=== PATIENT | male | born 1995 | race Caucasian/White ===

== ENCOUNTER 2023-01-26 19:18 | Inpatient (IN) | payer OTHER, SELFPAY ==
--- NOTE | ~2023-01-26 | CT_ITS ---
EXAMINATION: CT LE LT w con DATE: 01/30/2023 15:16 INDICATION: Left high ankle abscess TECHNIQUE: High resolution computed tomography (CT) of the left ankle was performed with 100 mL Omnip aque-350 intravenous contrast. Additional sagittal and coronal reconstructions were performed. Automa cb exposure control and iterative reconstruction technique were employed. The dose-length product wa s 459.10 mGy-cm. COMPARISON: None FINDINGS: There is diffuse soft tissue swelling with subcutaneous edema about the visualized lower calf, ankle and extending into the foot with dorsal predominance. There is skin thickening and more focal soft ti ssue swelling consistent with cellulitis associated with an approximately 11 x 7 x 14 mm region of re latively low density within the subcutaneous fat medial to the metaphyseal regions of the distal tibi a likely represents a phlegmonous change with no organized peripherally enhancing wall. There appears to be a 1 mm diameter low density likely draining sinus tract extending to the skin surface. No absc esses identified. No soft tissue gas or evident foreign bodies. Bones are normal alignment with no fr acture. No cortical erosions or periosteal reaction to suggest ostomy myelitis. Visualized joint spac es are normal with no joint effusions. Vessel wall calcification along the posterior tibial artery. IMPRESSION: 1. 11 x 7 x 14 mm region of likely phlegmonous change with what appears be a tiny draining sinus trac t extending to the skin surface and surrounding cellulitis located medial to the distal metaphyseal r egion of the left tibia. No organized abscess or osteomyelitis. Reviewed, dictated and finalized at location A. IMPRESSION: 1. 11 x 7 x 14 mm region of likely phlegmonous change with what appears be a ti ny draining sinus tract extending to the skin surface and surrounding celluliti s located medial to the distal metaphyseal region of the left tibia. No organiz ed abscess or osteomyelitis.
--- NOTE | ~2023-01-26 | US_ITS ---
EXAMINATION: US venous doppler [facility] DATE: 01/27/2023 09:41 INDICATION: Left lower limb swelling. TECHNIQUE: Grayscale ultrasound images without and with compression and Doppler ultrasound images of the left lower extremity veins were obtained. COMPARISON: None. FINDINGS: The visualized portions of left common femoral vein, profunda (deep) femoral vein, femoral vein, popl iteal vein, peroneal veins, posterior tibial veins, and greater saphenous vein outflow are patent. IMPRESSION: 1. No deep venous thrombosis. Reviewed, dictated and finalized at location A.
[2023-01-26 19:22] VITALS: BP 104/65; PULSE 108; RESP 17; TEMP 38.2; O2SAT 100
[2023-01-26 21:30] VITALS: BP 121/75; PULSE 99; RESP 16; TEMP 37.1; O2SAT 100
[2023-01-26 23:47] VITALS: BP 149/90; PULSE 96; RESP 16; O2SAT 100
--- NOTE | 2023-01-27 01:05 | ED.SKABFB ---
HPI - Skin/Abscess/Foreign Bdy General Chief complaint: Skin/Abscess/Foreign Body Stated complaint: infection on left leg Time Seen by Provider: 01/27/23 00:26 Source: patient Mode of arrival: ambulatory Limitations: no limitations History of Present Illness HPI narrative: Patient is a 27 y/o male who presents to the ED with c/o infection to his left lower leg. Patient reports he wore a different pair of high top shoes to work last week and noticed an area to his left medial lower leg just above his ankle that was rubbed raw. He developed a small ulcer-like wound in this region. He states over the last 2 to 3 days he has noticed increased pain and redness in the area surrounding the wound. He states today he noticed the redness spreading up his leg and purulent discharge from the wound. Patient has not tried anything for his symptoms. He has been ambulatory. He was febrile upon arrival to the ED here, but denies feeling feverish at home. Denies numbness or tingling. Denies nausea or vomiting. Patient states he has never been officially diagnosed with diabetes, but was told he was unable to join the [employer] after high school due to his blood sugar being elevated. He never followed up with the doctor after this. Related Data Allergies Allergy/AdvReac Type Severity Reaction Status Date / Time No Known Allergies Allergy Verified 01/26/23 23:47 Review of Systems Review of Systems: CONSTITUTIONAL: See HPI. CARDIOVASCULAR: Denies chest pain. RESPIRATORY: Denies dyspnea. GASTROINTESTINAL: Denies abdominal pain, nausea, vomiting. SKIN: See HPI. MUSCULOSKELETAL: See HPI. NEUROLOGIC: Denies tingling, numbness, or weakness. All systems reviewed & are unremarkable except as noted in HPI and below Exam Narrative: GENERAL: Mildly disheveled appearing, thin, non-toxic, in no acute distress. HEAD: Normocephalic, atraumatic. ENT: Poor dentition, partially edentulous. NECK: Supple. No adenopathy, no masses. RESPIRATORY: Airway patent, respirations nonlabored. Clear to auscultation bilaterally, no rales, rhonchi, wheezing. CARDIOVASCULAR: Regular rate and rhythm without murmurs, rubs, or gallops. Difficult to palpate DP pulses on left due to swelling, able to Doppler pulse. MUSCULOSKELETAL: Moves all extremities. Strength/ROM intact. Diffuse pitting edema noted to left lower leg extending into ankle and foot. Diffuse tenderness throughout left medial lower leg. Large area of erythema and warmth over medial left lower leg with central quarter-sized ulcer a few fingerbreadths proximal from medial malleoli, moist wound edges, draining purulent material. Crusting present. SKIN: Warm, dry, normal color. No rashes. Scattered healing scabs to right lower warren. NEURO: A&O X3. Speech clear. Cranial nerves II-XII grossly intact. Steady gait. No ataxic movements. PSYCHIATRIC: Appropriate mood and affect. Normal interaction. Course Vital Signs Vital signs: Vital Signs Temperature 100.7 F H 01/26/23 19:22 Pulse Rate 108 H 01/26/23 19:22 Respiratory Rate 17 01/26/23 19:22 Blood Pressure 104/65 01/26/23 19:22 Pulse Oximetry 100 01/26/23 19:22 Oxygen Delivery Room Air 01/26/23 19:22 Temperature 98.8 F 01/26/23 21:30 Pulse Rate 88 01/27/23 02:02 Respiratory Rate 16 01/27/23 02:02 Blood Pressure 135/95 H 01/27/23 02:02 Pulse Oximetry 100 01/27/23 02:02 Oxygen Delivery Room Air 01/26/23 19:22 MDM - Skin/Abscess/Foreign Bdy MDM Narrative Medical decision making narrative: Patient presented to ED with wound and infection to left lower leg. Potential for undiagnosed diabetes. Patient tachycardic and febrile upon arrival to the ED, both of which were resolved by the time of my evaluation. Exam consistent with diffuse cellulitis of left lower leg with infected ulcer to medial lower leg, just proximal to medial malleoli. Purulent material coming from wound/ulcer. Wound and blood cultures obtained. CB
[2023-01-27 01:50] LABS: Basophils Percent Auto 0.3 % (0.2-1.2); Eosinophils Percent Auto 0.4 % (0-4.4); Hematocrit 34.6 % (42.0-52.0); Hemoglobin 12.1 g/dL (14.0-18.0); Immature Granulocyte Absolute 0.04 K/mm3 (0.00-0.031); Immature Granulocyte Percent A 0.4 % (0-0.5); Lymphocytes Absolute Auto 2.44 K/mm3 (0.9-3.2); Lymphocytes Percent Auto 25.8 % (18.3-44.2); Mean Corpuscular Volume 85.6 fl (80-100); Mean Platelet Volume 9.8 fl (7.4-10.4); Monocytes Absolute Auto 0.7 K/mm3 (0.1-0.6); Monocytes Percent Auto 7.5 % (2.6-8.5); Neutrophils Absolute Auto 6.2 K/mm3 (1.3-6.7); Neutrophils Percent Auto 65.6 % (45.5-73.1); Platelet Count Result 237 k/mm3 (150-375); Red Blood Count 4.04 M/mm3 (4.6-6.20); Red Cell Distribution Width 12.5 % (11.5-14.5); White Blood Count 9.5 K/mm3 (4.5-10.0)
[2023-01-27 02:01] LABS: Lactic Acid Reflex 1.3 mmol/L (0.7-2.0)
[2023-01-27 02:02] VITALS: BP 135/95; PULSE 88; RESP 16; O2SAT 100
[2023-01-27 02:19] LABS: Alanine Aminotransferase 24 U/L (6-50); Alkaline Phosphatase 294 U/L (38-126); Anion Gap 12 mmol/L (8-16); Aspartate Amino Transferase 20 U/L (17-59); Blood Urea Nitrogen 9 mg/dL (9-20); Calcium 8.6 mg/dL (8.4-10.2); Carbon Dioxide 22 mmol/L (22-30); Chloride 93 mmol/L (98-107); Estimated CRCL calculation 100 ml/min; Estimated Glomerular Filt Rate > 60; Glucose 353 mg/dL (65-110); Potassium 3.6 mmol/L (3.4-5.0); Sodium 127 mmol/L (137-145)
[2023-01-27 02:20] LABS: Erythrocyte Sedimentation Rate 107 mm/hr (0-20)
[2023-01-27] MEDS: CEFEPIME 2 GM/NS 50 ML 2 GM/50 ML BAG IVPB ×2 (02:34→14:10)
[2023-01-27] MEDS: SODIUM CHLORIDE 0.9% IV 1,000 ML 999 ML IV CONT ×2 (02:34→03:48)
[2023-01-27 02:50] LABS: Hemoglobin A1C 11.2 % (<5.7)
--- NOTE | 2023-01-27 03:04 | PC.NURSE ---
called DR. Powers at [phone] she returned the call at [phone]
[2023-01-27] MEDS: metroNIDAZOLE 500 MG/ISO 100ML 500 MG/100 ML BAG 100 MG IVPB ×3 (03:21→18:34)
[2023-01-27 03:25] VITALS: BP 151/93; PULSE 97; RESP 16; O2SAT 100
[2023-01-27] MEDS: SODIUM CHLORIDE 0.9% IV 1,000 ML 100 ML IV CONT (04:40)
[2023-01-27 04:45] VITALS: BMI 21.6
--- NOTE | 2023-01-27 04:50 | ADMGEN ---
This patient, Catracho Deras, was admitted to 3 [facility] Surg Room 320-01 at 0430. Patient/family oriented to hospital policies and general routines including ID bracelet, bed and alarms, visiting hours, pain management, procedures, bathroom and other care routines, personal items, smoking policy, room service/diet, and visiting hours. Information on how to activate the Rapid Response Team has been discussed. Patient/Family are encouraged to report perceived risks to care and to ask questions if they do not understand what they are told or what they should do.
[2023-01-27 05:07] LABS: Glucose Point of Care 306 mg/dl (65-105)
[2023-01-27] MEDS: INSULIN ASPART (*BKC) 100 UNITS/ML SUB-Q ×3 (05:47→22:23)
[2023-01-27 06:00] VITALS: BP 128/84; PULSE 98; RESP 18; TEMP 35.9; O2SAT 100
[2023-01-27 08:09] LABS: Glucose Point of Care 218 mg/dl (65-105)
[2023-01-27] MEDS: metFORMIN HCL 500 MG TABLET PO ×2 (08:38→17:00)
--- NOTE | 2023-01-27 10:06 | PM.IMHP ---
H&P: HPI History of Present Illness Date/Time: 01/27/23 10:06 Chief Complaint: Wound on left lower leg Narrative: 27-year-old male with history of diabetes is presenting with wound to his left lower leg after wearing different shoes last week. At first it was a blister and then it appears to have ulcerated and now looks infected. It has gotten progressively worse over the last 2-3 days. He is complaining of pain and drainage from the area surrounding the wound. He denies any chest pain or shortness of breath. No fevers or chills. No nausea, vomiting or diarrhea. In the ER, he was started on IV antibiotics and admitted for closer observation. Review of Systems Review of Systems: 12 point review of systems was assessed and was negative except as noted in the HPI [facility] Past Medical History Medical History (Updated 01/27/23 @ 19:13 by Suad Chappell DO) Hyperglycemia Social History Social History Smoking status: Current every day smoker Tobacco type: e-cigarettes/vaping Alcohol intake: current Drinks per week: 2 Substance use: current Substance use type: marijuana Last use: 01/23/23 Lack of Transportation: YES Lack of Food: Often True Current Housing: I Have Housing Concerned About Future Housing: No Difficulty Paying Gas/Electric Bills: YES Difficulty Paying for Meds: No Currently Unemployed: No Education: High School Diploma/GED Difficulty w/ Childcare or Family Care: No Spiritual care concerns: No Meds Home Medications and Allergies Home Medications Medication Instructions Recorded Confirmed Type ibuprofen 600 mg tablet 600 mg PO Q6H PRN Pain 01/27/23 01/27/23 History Allergies Allergy/AdvReac Type Severity Reaction Status Date / Time No Known Allergies Allergy Verified 01/26/23 23:47 Vital Signs Vital Signs - 24 hr 01/26/23 19:22 01/26/23 21:30 01/26/23 23:47 Temperature 100.7 F H 98.8 F Pulse Rate 108 H 99 96 Respiratory Rate 17 16 16 Blood Pressure 104/65 121/75 149/90 H Pulse Oximetry 100 100 100 Oxygen Delivery Room Air 01/27/23 02:02 01/27/23 03:25 01/27/23 05:54 Temperature Pulse Rate 88 97 Respiratory Rate 16 16 Blood Pressure 135/95 H 151/93 H Pulse Oximetry 100 100 Oxygen Delivery Room Air 01/27/23 06:00 Temperature 96.6 F L Pulse Rate 98 Respiratory Rate 18 Blood Pressure 128/84 Pulse Oximetry 100 Oxygen Delivery Exam Narrative: General: No acute distress, alert and oriented per baseline HEENT: Atraumatic, normocephalic, mucous membranes moist CV: Regular rate and rhythm, S1, S2 Lungs: Clear to auscultation bilaterally, no rales or crackles noted, no wheezes, good air entry Abdomen: Soft, nontender, nondistended Extremities: Normal to inspection, 2+ pitting edema noted to left lower leg, TTP left lower leg, large area of erythema and warmth over medial left lower leg with central quarter-sized ulcer a few inches proximal from medial malleoli, moist wound edges, draining purulent material. Crusting present. Skin: No rashes noted, no lesions or wounds seen Psych: Euthymic, normal affect H&P: Results Labs Labs: Short CBC 01/27/23 Range/Units 01:38 WBC 9.5 (4.5-10.0) K/mm3 Hgb 12.1 L (14.0-18.0) g/dL Hct 34.6 L (42.0-52.0) % Plt Count 237 (150-375) k/mm3 BMP 01/27/23 01:38 Sodium 127 L Potassium 3.6 Chloride 93 L Carbon Dioxide 22 BUN 9 Creatinine 0.80 Glucose 353 H Calcium 8.6 Liver Function 01/27/23 Range/Units 01:38 Total Bilirubin 1.0 (0.2-1.3) mg/dL AST 20 (17-59) U/L ALT 24 (6-50) U/L Alkaline Phosphatase 294 H (38-126) U/L Albumin 4.0 (3.5-5.1) g/dL Assessment and Plan Assessment and plan (1) Cellulitis of left lower extremity: Code(s): L03.116 - Cellulitis of left lower limb Status: Acute Assessment and Plan: IV abx,
[2023-01-27 11:59] LABS: Glucose Point of Care 242 mg/dl (65-105)
[2023-01-27 14:00] VITALS: BP 125/70; PULSE 89; RESP 18; TEMP 37.2; O2SAT 99
[2023-01-27] MEDS: MUPIROCIN 2% OINT 22 GM TUBE 1 APPLIC TOPICAL (14:11)
[2023-01-27 16:44] LABS: Glucose Point of Care 186 mg/dl (65-105)
[2023-01-27] MEDS: VANCOMYCIN 1,000 MG/NS 250 ML 1,000 MG/250 ML BAG 250 MG IVPB (17:00)
[2023-01-27 21:15] LABS: Erythrocyte Sedimentation Rate > 140 mm/hr (0-20)
[2023-01-27 21:19] LABS: CRP 2.3 mg/dL (<1.0)
[2023-01-27 21:24] LABS: Glucose Point of Care 242 mg/dl (65-105)
[2023-01-27 21:33] LABS: Procalcitonin 0.2 ng/mL
[2023-01-27 22:00] VITALS: BP 120/66; PULSE 94; RESP 16; TEMP 36.1; O2SAT 100
[2023-01-28] MEDS: SODIUM CHLORIDE 0.9% IV 1,000 ML 100 ML IV CONT ×2 (00:47→11:45)
[2023-01-28] MEDS: CEFEPIME 2 GM/NS 50 ML 2 GM/50 ML BAG IVPB ×2 (02:14→14:11)
[2023-01-28] MEDS: metroNIDAZOLE 500 MG/ISO 100ML 500 MG/100 ML BAG 100 MG IVPB ×3 (02:52→17:12)
[2023-01-28] MEDS: VANCOMYCIN 1,000 MG/NS 250 ML 1,000 MG/250 ML BAG 250 MG IVPB (03:58)
[2023-01-28 06:00] VITALS: BP 130/76; PULSE 87; RESP 20; TEMP 36; O2SAT 99
[2023-01-28 06:49] LABS: Glucose Point of Care 148 mg/dl (65-105)
[2023-01-28 07:48] LABS: Estimated CRCL calculation 130 ml/min; Estimated Glomerular Filt Rate > 60
[2023-01-28 07:50] LABS: Glucose Point of Care 111 mg/dl (65-105)
[2023-01-28] MEDS: metFORMIN HCL 500 MG TABLET PO ×2 (08:30→17:11)
[2023-01-28] MEDS: MUPIROCIN 2% OINT 22 GM TUBE 1 APPLIC TOPICAL ×2 (08:31→16:49)
[2023-01-28 09:10] VITALS: BMI 21.6
[2023-01-28 11:33] LABS: Glucose Point of Care 172 mg/dl (65-105)
[2023-01-28 14:00] VITALS: BP 121/78; PULSE 82; RESP 20; TEMP 36.8; O2SAT 100
--- NOTE | 2023-01-28 14:10 | PM.IMPN ---
Progress Note: A&P Assessment and Plan (1) Cellulitis of left lower extremity: Code(s): L03.116 - Cellulitis of left lower limb Status: Acute Assessment and Plan: Patient presents with left leg edema, redness and warmth c/w cellulitis. [place] related to uncontrolled DM. BCx collected and he was started on vancomycin, cefepime and Flagyl 01/27. BCx NGTD Left LE venous doppler negative for DVT. WBC normal. ESR>140. CRP 2.3. Continue IV abx. Follow clinically. (2) Diabetes mellitus, new onset: Code(s): E11.9 - Type 2 diabetes mellitus without complications Status: Acute Assessment and Plan: A1c 11.2. The patient's blood glucose was reviewed on 01/28 Glucose remains elevated but better. Sodium low from the hyperglycemia but no metabolic acidosis. A young, thin male suggests DM Type I but no hx of DKA. Will check auto-Ab. Continue AccuCheks covering with sliding scale. Hypoglycemia protocol available as needed. Continue current medications. Add Empagliflozin Appreciate medical educator input. (3) Acute hyponatremia: Code(s): E87.1 - Hypo-osmolality and hyponatremia Status: Acute Assessment and Plan: Related to the hyperglycemia. Repeat labs tomorrow. Plan DVT prophylaxis with Lovenox GI prophylaxis not indicated Code status full code Subjective Date/time seen: 01/28/23 14:10 Interval history: 27yo male with known hx of hyperglycemia here for left leg edema and redness consistent with cellulitis. Assuming care. Chart reviewed. Patient states that he was noted to have elevated glucose when he was trying to get into the [employer]. He was told to follow up with Which he never did. He has numbness in his feet. He has never been hospitalized for hyperglycemia. He did know right eye vision changes few weeks ago that have slowly improved. He has not followed up with industrial relations officer for an eye exam. He denies any pain in the left leg. He has noted that the left leg with less swollen today. Exam Narrative: AF 96.8 130/76 87 20 99% ra Gen - NARD Chest - CTA bilaterally, nml RR CV - RRR S1/S2 Abd - Soft, NT/ND, Positive BS Ext -left lower extremity edema. Erythema noted in the left lower warren and calf. Nickel sized denuded ulcerated area left medial calf. Neuro -numbness bilateral lower extremities. Psych - Nml mood and affect Skin - Warm and dry Objective Data Vital Signs Vital Signs: Vital Signs - 24 hr 01/27/23 22:00 01/28/23 06:00 01/28/23 08:00 Temperature 96.9 F L 96.8 F L Pulse Rate 94 87 Respiratory Rate 16 20 Blood Pressure 120/66 130/76 Pulse Oximetry 100 99 Oxygen Delivery Room Air Intake/Output Intake/Output: Intake & Output 01/25/23 01/26/23 01/27/23 01/28/23 23:59 23:59 23:59 23:59 Intake Total 4672 2021 Balance 4672 2021 Meds/Results Medications: Active Medications Generic Name Dose Route Start Last Admin Trade Name Freq PRN Reason Stop Dose Admin Acetaminophen 650 mg 01/27/23 03:08 Acetaminophen 325 Mg Tablet PO Q4H PRN Mild Pain (1-3) or Fever Dextrose 12.5 gm 01/27/23 03:13 Dextrose 50% 25 Gm/50 Ml Syringe IV PUSH PRN PRN Hypoglycemia Protocol Glucagon 1 mg 01/27/23 03:13 Glucagon For Inj 1 Mg Vial IM PRN PRN Hypoglycemia Protocol Glucose 15 gm 01/27/23 03:13 Glucose Oral Gel 15 Gm Of Glucse In 37.5 Gm Tube PO PRN PRN Hypoglycemia Protocol Cefepime HCl 2 gm in 50 mls @ 100 mls/hr 01/27/23 14:00 01/28/23 02:44 Maxipime 2 Gm/Ns 50 Ml IVPB Infused Q12H LIZET Infusion Metronidazole 500 mg in 100 mls @ 100 mls/hr 01/27/23 11:00 01/28/23 12:47 Flagyl 500 Mg/Iso Soln 100 Ml IVPB Infused Q8H LIZET Infusion Sodium Chloride 1,000 mls @ 100 mls/hr 01/27/23 03:10 01/28/23 11:45 Normal Saline Iv IV CONT 100 mls/hr .Q10H LIZET Administration Dextrose 1,000 mls @ 100 mls/hr 09
[2023-01-28 16:05] LABS: Vancomycin Trough 6.7 ug/mL (10.0-20.0)
[2023-01-28 16:34] LABS: Glucose Point of Care 179 mg/dl (65-105)
[2023-01-28] MEDS: ENOXAPARIN 40 MG/0.4 ML SYRINGE SUB-Q (18:19)
[2023-01-28 20:00] VITALS: PULSE 82; O2SAT 100
[2023-01-28 21:12] LABS: Glucose Point of Care 289 mg/dl (65-105)
[2023-01-28] MEDS: INSULIN ASPART (*BKC) 100 UNITS/ML SUB-Q (21:53)
[2023-01-28 22:00] VITALS: BP 127/84; PULSE 87; RESP 20; TEMP 36; O2SAT 99
[2023-01-29] MEDS: CEFEPIME 2 GM/NS 50 ML 2 GM/50 ML BAG IVPB ×2 (01:13→14:17)
[2023-01-29] MEDS: metroNIDAZOLE 500 MG/ISO 100ML 500 MG/100 ML BAG 100 MG IVPB ×2 (02:40→11:52)
--- NOTE | 2023-01-29 05:42 | PC.NURSE ---
pt independent with adl's
[2023-01-29 06:00] VITALS: BP 123/79; PULSE 76; RESP 16; TEMP 35.5; O2SAT 100
[2023-01-29 06:10] LABS: Basophils Percent Auto 0.4 % (0.2-1.2); Eosinophils Absolute Auto 0.1 K/mm3 (0-0.3); Hematocrit 31.1 % (42.0-52.0); Hemoglobin 10.7 g/dL (14.0-18.0); Immature Granulocyte Absolute 0.01 K/mm3 (0.00-0.031); Immature Granulocyte Percent A 0.2 % (0-0.5); Lymphocytes Absolute Auto 1.99 K/mm3 (0.9-3.2); Lymphocytes Percent Auto 36.2 % (18.3-44.2); Mean Corpuscular HGB Conc 34.4 g/dl (32-36); Mean Corpuscular Hemoglobin 29.8 pg (26-34); Mean Corpuscular Volume 86.6 fl (80-100); Mean Platelet Volume 9.4 fl (7.4-10.4); Monocytes Absolute Auto 0.3 K/mm3 (0.1-0.6); Neutrophils Percent Auto 55.2 % (45.5-73.1); Platelet Count Result 269 k/mm3 (150-375); Red Blood Count 3.59 M/mm3 (4.6-6.20); Red Cell Distribution Width 12.4 % (11.5-14.5); White Blood Count 5.5 K/mm3 (4.5-10.0)
[2023-01-29 06:28] LABS: Alanine Aminotransferase 17 U/L (6-50); Albumin Level 2.6 g/dL (3.5-5.1); Alkaline Phosphatase 198 U/L (38-126); Anion Gap 2 mmol/L (8-16); Aspartate Amino Transferase 19 U/L (17-59); Bilirubin,Total 0.3 mg/dL (0.2-1.3); Blood Urea Nitrogen 10 mg/dL (9-20); CRP 1.2 mg/dL (<1.0); Calcium 7.8 mg/dL (8.4-10.2); Carbon Dioxide 27 mmol/L (22-30); Chloride 104 mmol/L (98-107); Estimated CRCL calculation 130 ml/min; Estimated Glomerular Filt Rate > 60; Glucose 207 mg/dL (65-110); Magnesium 1.7 mg/dL (1.6-2.3); Potassium 3.6 mmol/L (3.4-5.0); Sodium 133 mmol/L (137-145)
[2023-01-29 07:28] LABS: Folic Acid 6.9 ng/mL (2.76->20)
[2023-01-29 07:45] LABS: Glucose Point of Care 214 mg/dl (65-105)
[2023-01-29] MEDS: ENOXAPARIN 40 MG/0.4 ML SYRINGE SUB-Q (08:25)
[2023-01-29] MEDS: EMPAGLIFLOZIN 10 MG TABLET PO (08:25)
[2023-01-29] MEDS: metFORMIN HCL 500 MG TABLET PO (08:25)
[2023-01-29] MEDS: INSULIN ASPART (*BKC) 100 UNITS/ML SUB-Q (08:26)
[2023-01-29] MEDS: MUPIROCIN 2% OINT 22 GM TUBE 1 APPLIC TOPICAL ×2 (08:31→18:07)
[2023-01-29 11:28] LABS: Glucose Point of Care 160 mg/dl (65-105)
[2023-01-29 14:00] VITALS: BP 124/81; PULSE 85; RESP 14; TEMP 36.5; O2SAT 100
--- NOTE | 2023-01-29 14:50 | PM.IMPN ---
Progress Note: A&P Assessment and Plan (1) Cellulitis of left lower extremity: Code(s): L03.116 - Cellulitis of left lower limb Status: Acute Assessment and Plan: Patient presents with left leg edema, redness and warmth c/w cellulitis. [place] related to uncontrolled DM. BCx collected and he was started on vancomycin, cefepime and Flagyl 01/27. BCx NGTD WCx MSSA Left LE venous doppler negative for DVT. WBC normal. ESR>140. CRP 2.3. Wound still draining purulent mat'l. Continue IV abx but narrow to Cefazolin. Follow clinically. (2) Diabetes mellitus, new onset: Code(s): E11.9 - Type 2 diabetes mellitus without complications Status: Acute Assessment and Plan: A1c 11.2. The patient's blood glucose was reviewed on 01/29 A young, thin male suggests DM Type I but no hx of DKA. He had hyperglycemia about 10 years ago but unclear if that was transient and he is now presenting with DM. He does have LE numbness to suggest long standing uncontrolled DM. Antibody testing ordered but feel Type I less likely. Glucose remains elevated but better. Sodium low from the hyperglycemia but no metabolic acidosis. Empagliflozin added since felt less likely Type I but will hold since still in differential Continue AccuCheks covering with sliding scale. Hypoglycemia protocol available as needed. Continue metformin Add Lantus given an A1c 11.2. Appreciate certified lactation educator input. (3) Acute hyponatremia: Code(s): E87.1 - Hypo-osmolality and hyponatremia Status: Acute Assessment and Plan: Na 127 on admission. Related to the hyperglycemia. Repeat sodium 133 Follow Plan DVT prophylaxis with Lovenox GI prophylaxis not indicated Code status full code Subjective Date/time seen: 01/29/23 14:50 Interval history: 27yo male with known hx of hyperglycemia here for left leg edema and redness consistent with cellulitis. No problems overngiht. Feels well. Leg less swollen Exam Narrative: AF 97.7 124/81 85 14 100% ra Gen - NARD Chest - CTA bilaterally, nml RR CV - RRR S1/S2 Abd - Soft, NT/ND, Positive BS Ext -left lower extremity edema decreased. Fading erythema noted in the left lower warren and calf. Small ulcer draining purulent material left medial calf. Psych - Nml mood and affect Skin - Warm and dry Objective Data Vital Signs Vital Signs: Vital Signs - 24 hr 01/28/23 20:00 01/28/23 22:00 01/29/23 06:00 Temperature 96.8 F L 96 F L Pulse Rate 82 87 76 Respiratory Rate 20 16 Blood Pressure 127/84 123/79 Pulse Oximetry 100 99 100 Oxygen Delivery Room Air 01/29/23 08:00 01/29/23 14:00 Temperature 97.7 F Pulse Rate 85 Respiratory Rate 14 Blood Pressure 124/81 Pulse Oximetry 100 Oxygen Delivery Room Air Intake/Output Intake/Output: Intake & Output 01/26/23 01/27/23 01/28/23 01/29/23 23:59 23:59 23:59 23:59 Intake Total 4677 3916 1242 Balance 4672 3916 1242 Meds/Results Medications: Active Medications Generic Name Dose Route Start Last Admin Trade Name Freq PRN Reason Stop Dose Admin Acetaminophen 650 mg 01/27/23 03:08 Acetaminophen 325 Mg Tablet PO Q4H PRN Mild Pain (1-3) or Fever Dextrose 12.5 gm 01/27/23 03:13 Dextrose 50% 25 Gm/50 Ml Syringe IV PUSH PRN PRN Hypoglycemia Protocol Enoxaparin Sodium 40 mg 01/29/23 09:00 01/29/23 08:25 Enoxaparin 40 Mg/0.4 Ml Syringe SUB-Q 40 mg DAILY LIZET Administration Glucagon 1 mg 01/27/23 03:13 Glucagon For Inj 1 Mg Vial IM PRN PRN Hypoglycemia Protocol Glucose 15 gm 01/27/23 03:13 Glucose Oral Gel 15 Gm Of Glucse In 37.5 Gm Tube PO PRN PRN Hypoglycemia Protocol Cefepime HCl 2 gm in 50 mls @ 100 mls/hr 01/27/23 14:00 01/29/23 14:17 Maxipime 2 Gm/Ns 50 Ml IVPB 100 mls/hr Q12H LIZET Administration Metronidazole 500 mg in 100 mls @ 100 mls/hr 01/27/23 11:00 01/29/23 11:52
[2023-01-29 16:28] LABS: Glucose Point of Care 124 mg/dl (65-105)
[2023-01-29 20:00] VITALS: O2SAT 100
[2023-01-29 20:51] VITALS: BP 162/95; PULSE 77; RESP 16; TEMP 35.9; O2SAT 100
--- NOTE | 2023-01-29 21:26 | ECG_ITS ---
Measurements Intervals [place] Rate: 62 P: 74 HI: 135 QRS: 86 QRSD: 98 T: 67 QT: 404 QTc: 411 Interpretive Statements SINUS RHYTHM WITH MARKED SINUS ARRHYTHMIA DELAYED PRECORDIAL R/S TRANSITION NONSPECIFIC ST ELEVATION IN ANTERIOR LEADS BASELINE ARTIFACT- V2 BORDERLINE ECG NO PREVIOUS ECG AVAILABLE FOR COMPARISON Electronically Signed On 01-30-2023 6:20:42 CDT by Km Briggs D.O.
[2023-01-29 21:29] LABS: Glucose Point of Care 153 mg/dl (65-105)
[2023-01-29] MEDS: INSULIN GLARGINE (*BKC) 100 UNITS/ML 8 UNITS SUB-Q (21:33)
[2023-01-29] MEDS: ONDANSETRON INJ 4 MG/2 ML VIAL IV PUSH (21:36)
[2023-01-29] MEDS: ceFAZolin 2 GM/D5W 50 ML 2 GM/50 ML BAG IVPB (21:37)
[2023-01-29 22:28] VITALS: BP 158/96; PULSE 75; RESP 18; TEMP 36; O2SAT 100
[2023-01-30] MEDS: ONDANSETRON INJ 4 MG/2 ML VIAL IV PUSH (03:40)
--- NOTE | 2023-01-30 03:45 | PC.NURSE ---
Spoke with Selena HORNER at this time r/t patient continuing to have N/V after zofran given. New orders received for phenergan 12.5 mg IVP x1.
[2023-01-30] MEDS: PROMETHAZINE HCL 25 MG/ML AMPUL 12.5 MG IV PUSH (04:01)
[2023-01-30 05:19] VITALS: BP 125/87; PULSE 83; RESP 18; TEMP 36.2; O2SAT 100
[2023-01-30] MEDS: ceFAZolin 2 GM/D5W 50 ML 2 GM/50 ML BAG IVPB ×2 (05:33→14:26)
[2023-01-30 07:36] LABS: Glucose Point of Care 106 mg/dl (65-105)
[2023-01-30 07:40] LABS: Basophils Percent Auto 0.4 % (0.2-1.2); Eosinophils Absolute Auto 0.1 K/mm3 (0-0.3); Eosinophils Percent Auto 1.2 % (0-4.4); Hemoglobin 10.9 g/dL (14.0-18.0); Immature Granulocyte Absolute 0.02 K/mm3 (0.00-0.031); Immature Granulocyte Percent A 0.4 % (0-0.5); Lymphocytes Absolute Auto 1.72 K/mm3 (0.9-3.2); Lymphocytes Percent Auto 34.5 % (18.3-44.2); Mean Corpuscular HGB Conc 34.1 g/dl (32-36); Mean Corpuscular Hemoglobin 29.5 pg (26-34); Mean Corpuscular Volume 86.7 fl (80-100); Mean Platelet Volume 9.2 fl (7.4-10.4); Monocytes Absolute Auto 0.3 K/mm3 (0.1-0.6); Monocytes Percent Auto 6.6 % (2.6-8.5); Neutrophils Absolute Auto 2.8 K/mm3 (1.3-6.7); Neutrophils Percent Auto 56.9 % (45.5-73.1); Platelet Count Result 314 k/mm3 (150-375); Red Blood Count 3.69 M/mm3 (4.6-6.20); Red Cell Distribution Width 12.6 % (11.5-14.5)
[2023-01-30 07:52] LABS: Alanine Aminotransferase 23 U/L (6-50); Albumin Level 2.7 g/dL (3.5-5.1); Alkaline Phosphatase 179 U/L (38-126); Anion Gap 2 mmol/L (8-16); Aspartate Amino Transferase 35 U/L (17-59); Bilirubin,Total 0.4 mg/dL (0.2-1.3); Blood Urea Nitrogen 10 mg/dL (9-20); CRP 0.7 mg/dL (<1.0); Calcium 7.9 mg/dL (8.4-10.2); Carbon Dioxide 30 mmol/L (22-30); Chloride 104 mmol/L (98-107); Estimated CRCL calculation 130 ml/min; Estimated Glomerular Filt Rate > 60; Glucose 113 mg/dL (65-110); Potassium 3.5 mmol/L (3.4-5.0); Sodium 136 mmol/L (137-145)
[2023-01-30] MEDS: MUPIROCIN 2% OINT 22 GM TUBE 1 APPLIC TOPICAL (09:39)
[2023-01-30] MEDS: ENOXAPARIN 40 MG/0.4 ML SYRINGE SUB-Q (09:39)
[2023-01-30 11:23] LABS: Glucose Point of Care 108 mg/dl (65-105)
[2023-01-30 14:00] VITALS: BP 131/85; PULSE 75; RESP 16; TEMP 36.3; O2SAT 100
[2023-01-30 16:26] LABS: Glucose Point of Care 121 mg/dl (65-105)
--- NOTE | 2023-01-30 16:33 | PM.IMPN ---
Progress Note: A&P Assessment and Plan (1) Cellulitis of left lower extremity: Code(s): L03.116 - Cellulitis of left lower limb Status: Acute Assessment and Plan: Patient presents with left leg edema, redness and warmth c/w cellulitis. [employer] related to uncontrolled DM. BCx collected and he was started on vancomycin, cefepime and Flagyl 01/27. BCx NGTD WCx MSSA Left LE venous doppler negative for DVT. WBC normal. ESR>140. CRP 2.3. Wound still draining purulent mat'l. Patietn without much sensation Continue IV abx as Cefazolin. CT Left LE ordered and showing 11 x 14mmregion of phlegmonous with tiny draining sinus tract and surrounding cellulitis. No cortical erosions or periosteal reactions. Follow clinically. (2) Diabetes mellitus, new onset: Code(s): E11.9 - Type 2 diabetes mellitus without complications Status: Acute Assessment and Plan: A1c 11.2. The patient's blood glucose was reviewed on 01/30 A young, thin male suggests DM Type I but no hx of DKA. He had hyperglycemia about 10 years ago but unclear if that was transient and he is now presenting with DM. He does have LE numbness to suggest long standing uncontrolled DM. Antibody testing ordered but feel Type I less likely. Sodium low from the hyperglycemia but no metabolic acidosis. Metformin stopped. Continue AccuCheks covering with sliding scale. Hypoglycemia protocol available as needed. Continue Lantus Appreciate printed circuit board panels developer input. (3) Acute hyponatremia: Code(s): E87.1 - Hypo-osmolality and hyponatremia Status: Acute Assessment and Plan: Na 127 on admission. Related to the hyperglycemia. Repeat sodium 136 Follow Plan DVT prophylaxis with Lovenox GI prophylaxis not indicated Code status full code Subjective Date/time seen: 01/30/23 16:33 Interval history: 27yo male with known hx of hyperglycemia here for left leg edema and redness consistent with cellulitis. EKG performed last night before ordering Zofran. Metformin was causing nausea so patient refusing. No other issues. Since stopping metformia, no further n/v. Eating well. Exam Narrative: AF 97.3 131/85 75 16 100% ra Gen - NARD Chest - CTA bilaterally, nml RR CV - RRR S1/S2 Abd - Soft, NT/ND, Positive BS Ext -left lower extremity edema continues to decrease. Fading erythema left LE. Small ulcer still draining purulent material left medial calf. Psych - Nml mood and affect Skin - Warm and dry Objective Data Vital Signs Vital Signs: Vital Signs - 24 hr 01/29/23 20:51 01/29/23 22:28 01/29/23 20:00 Temperature 96.7 F L 96.8 F L Pulse Rate 77 75 Respiratory Rate 16 18 Blood Pressure 162/95 H 158/96 H Pulse Oximetry 100 100 100 Oxygen Delivery Room Air 01/30/23 05:19 01/30/23 09:30 01/30/23 14:00 Temperature 97.1 F L 97.3 F L Pulse Rate 83 75 Respiratory Rate 18 16 Blood Pressure 125/87 131/85 Pulse Oximetry 100 100 Oxygen Delivery Room Air Intake/Output Intake/Output: Intake & Output 01/27/23 01/28/23 01/29/23 01/30/23 23:59 23:59 23:59 23:59 Intake Total 4672 3916 1664 1570 Balance 4672 3916 1664 1570 Meds/Results Medications: Active Medications Generic Name Dose Route Start Last Admin Trade Name Freq PRN Reason Stop Dose Admin Acetaminophen 650 mg 01/27/23 03:08 Acetaminophen 325 Mg Tablet PO Q4H PRN Mild Pain (1-3) or Fever Dextrose 12.5 gm 01/27/23 03:13 Dextrose 50% 25 Gm/50 Ml Syringe IV PUSH PRN PRN Hypoglycemia Protocol Enoxaparin Sodium 40 mg 01/29/23 09:00 01/30/23 09:39 Enoxaparin 40 Mg/0.4 Ml Syringe SUB-Q 40 mg DAILY LIZET Administration Glucagon 1 mg 01/27/23 03:13 Glucagon For Inj 1 Mg Vial IM PRN PRN Hypoglycemia Protocol Glucose 15 gm 01/27/23 03:13 Glucose Oral Gel 15 Gm Of Glucse In 37.5 Gm Tube PO PRN PRN Hypoglycemia Protocol Dextrose 1,000
--- NOTE | 2023-01-30 16:46 | PM.DS ---
DS: Admitting Diagnosis Discharge Date 01/30/23 Admitting Diagnosis Cellulitis DS: Discharge Diagnosis Discharge Diagnosis (1) Cellulitis of left lower extremity: Code(s): L03.116 - Cellulitis of left lower limb Status: Acute (2) Diabetes mellitus, new onset: Code(s): E11.9 - Type 2 diabetes mellitus without complications Status: Acute (3) Acute hyponatremia: Code(s): E87.1 - Hypo-osmolality and hyponatremia Status: Acute DS: Summary Hospital Course Reason for hospitalization: 27yo male with known hx of hyperglycemia here for left leg edema and redness consistent with cellulitis. Please see H&P for details. Hospital Course: Patient presents with left leg edema, redness and warmth c/w cellulitis. [place] related to uncontrolled DM. BCx collected and he was started on vancomycin, cefepime and Flagyl 01/27. BCx NGTD. He had a small open area and wound culture grew MSSA. Left LE venous doppler negative for DVT. WBC normal. ESR>140. CRP 2.3. Abx changed to Cefazolin. Wound continued to drain purulent mat'l. Patient without much sensation in the lower extremities. CT Left LE showing 11 x 14mm region of phlegmonous with tiny draining sinus tract and surrounding cellulitis. No cortical erosions or periosteal reactions. Patient states that he was told he had high glucose values about 10 years ago when trying to get into the [employer]. He never followed up about this. Here, he was noted to have a glucose of 353 but no metabolic acidosis. He is a young, thin male that suggests DM Type I but no hx of DKA. Unclear if the hyperglycemia 10 years ago was a transient phenomenon and now with new onset DM or if he has had elevated glucose for 10 years. He does have symptoms of peripheral neuropathy and was having right eye vision changes a few weeks ago to suggest long standing, poorly controlled DM. Hgb A1c 11.2. Antibody testing for DM Type I ordered.?Sodium was low from the hyperglycemia but normal when glucose better. Was on metformin but was causing nausea so metformin stopped. Lantus low dose added. Appreciate health promotion educator input. He overall did well and was able to be discharged home on 01/30/23. He was encouraged to establish care with a primary care provider. Also he will need to see a fitness centre manager and court collections officer. He was taught on how to give himself insulin and to check his glucose. Educated about the benefits of stopping all tobacco products. He was given a meter at [facility]. Status at Discharge Cognitive/behavioral status at discharge: stable Time Spent with Patient Time attestation: Total time spent providing and/or coordinating discharge services:35 minutes Exam Narrative: AF 97.3 131/85 75 16 100% ra Gen - NARD Chest - CTA bilaterally, nml RR CV - RRR S1/S2 Abd - Soft, NT/ND, Positive BS Ext -left lower extremity edema continues to decrease. Fading erythema left LE. Small ulcer still draining purulent material left medial calf. Psych - Nml mood and affect Skin - Warm and dry DS: Data Data Completed and Pending Labs on day of discharge: Labs from last 24 hours 01/30/23 01/30/23 01/30/23 16:23 11:21 07:33 WBC 5.0 RBC 3.69 L Hgb 10.9 L Hct 32.0 L MCV 86.7 MCH 29.5 MCHC 34.1 RDW 12.6 Plt Count 314 MPV 9.2 Immature Gran % (Auto) 0.4 Neut % (Auto) 56.9 Lymph % (Auto) 34.5 [place] % (Auto) 6.6 Eos % (Auto) 1.2 Baso % (Auto) 0.4 Lymph # (Auto) 1.72 [place] # (Auto) 0.3 Eos # (Auto) 0.1 Baso # (Auto) 0.0 Abs Immat Gran (auto) 0.02 Absolute Neuts (auto) 2.8 Absolute Nucleated RBC 0.0 Nucleated RBC % 0.0 Sodium 136 L Potassium 3.5 Chloride 104 Carbon Dioxide 30 Anion Gap 2 L BUN 10 Creatinine 0.60 L Estim Creat Clear Calc 130 Estimated GFR > 60 Glucose 113 H POC Capillary Glucose 121 H 108 H Calcium 7.9 L Total Bilirubin 0.4 AST 35 ALT
[2023-01-31 19:44] LABS: Glutamic acid decarboxylase AA <5 IU/mL (<5)
[2023-02-01 14:05] LABS: Insulin Level Total 2.6 uIU/mL (<=18.4)
--- NOTE | 2023-02-05 09:04 | PC.NURSE ---
C- peptide- WNL ar 1.50 ОЛЕГ WNL at <5 Insulin AB- WNL at <0.4 Insulin level- 2.6; <=18.4 Dr. Burnette aware.
[2023-02-05 18:17] LABS: Zinc Transporter 8 Antibody <10 U/mL (<15)
--- NOTE | 2023-02-09 13:06 | PC.NURSE ---
Zinc transport is WNL at <10. Dr. Burnette aware.
--- NOTE | 2023-02-11 10:08 | PC.NURSE ---
Spoke with patient regarding finding a PCP. Pt states he has several in mind, but has not made a decision at this time. Have let Dr. Burnette know.
== END 2023-01-30 17:38 | disposition home or self-care (01) | DRG 380 ==
LOC: ANHED 01-27 03:16 → ANH3MEDSUR 01-27 03:36
PROVIDERS: Student in an Organized Health Care Education/Training Program; Admitting Provider Internal Medicine; Emergency Provider Physician Assistant; Visit Provider Internal Medicine
DX: E11.628 Type 2 diabetes mellitus with other skin complications (principal); L97.829 Non-pressure chronic ulcer of other part of left lower leg with unspecified severity; E11.622 Type 2 diabetes mellitus with other skin ulcer; L03.116 Cellulitis of left lower limb; E87.1 Hypo-osmolality and hyponatremia; B95.61 Methicillin susceptible Staphylococcus aureus infection as the cause of diseases classified elsewhere; E11.65 Type 2 diabetes mellitus with hyperglycemia; E11.9 Type 2 diabetes mellitus without complications; F17.290 Nicotine dependence, other tobacco product, uncomplicated
CPT/HCPCS: 36415; 73701; 80053; 80202; 82565; 82607; 82746; 82948; 83036; 83525; 83605; 83735; 84145; 84443; 84681; 85025; 85652; 86140; 86337; 86341; 87040; 87070; 87147; 87181; 87186; 87205; 93005; 93971; 96365; 96366; 96367; 96372; 96375; 99285; A9270; G0378; J0690; J0692; J1650; J1815; J1836; J2405; J2550; J3370; J7030; Q9967

== ENCOUNTER 2024-07-29 10:09 | Emergency (ER) | payer BC, SELFPAY ==
[2024-07-29 10:27] VITALS: BP 177/108; PULSE 87; RESP 20; TEMP 36.6; O2SAT 100
[2024-07-29 10:35] LABS: Glucose Point of Care 332 mg/dl (65-105)
--- OUTSIDE RECORDS SUMMARY | 2024-07-29 11:01 | XMS_ITS | Clinical Summary ---
Author Organization [facility] [employer] Address [address] [place] [address] Care Team Providers Care Curriculum And Assessment Coordinator Name Role Phone Lindsay Abdi MD Primary Care Provider [phone] Source Comments [facility] [employer]non-owned Affiliates and Associated Physician Practices is amultiple site organization consisting of ambulatory clinics and hospital sitesin [place], [place], [place] and [place]. This disclosure is being madepursuant to the Care Everywhere program and may not contain all information available regarding this patient. Last updated 18.[facility] [employer] Allergies No known active allergies Medications * Be aware that medications may not be up to date on this document. Alwaysverify current medications with the patient. Medication Sig Dispensed Refills Start Date End Date Status moxifloxacin (Vigamox) 0.5 % ophthalmic solution Instill 1 (one) drop into right eye 4 times daily 03/17/2024 Active dorzolamide-timol ol (Cosopt) 2-0.5 % ophthalmic solution Instill 1 (one) drop into both eyes 3 times daily 15 mL 4 05/12/2024 Active brimonidine (Alphagan) 0.2 % ophthalmic solution Instill 1 (one) drop into right eye 3 times daily 15 mL 4 05/12/2024 Active latanoprost (Xalatan) 0.005 % ophthalmic solution Instill 1 (one) drop into right eye at bedtime 2.5 mL 4 05/12/2024 Active prednisoLONE acetate (Pred Forte) 1 % ophthalmic suspension 04/18/2024 Active Continuous Glucose Sensor (Dexcom G7 Sensor) MISCIndications:P oor control type I diabetes mellitus (HCC) Use 1 Each every 10 days 3 Each 11 05/23/2024 Active Lantus SoloStar pen Inject 8 (eight) Units subcutaneously at bedtime 15 mL 3 05/23/2024 Active insulin lispro (HumaLOG KwikPen) 100 UNIT/ML pen Inject 2 (two) Units to 6 (six) Units subcutaneously 3 times daily before meals 2u for small meal, 3U for medium and 4U for large meal, add 1 if glucose over 200, add 2u if glucose over 300, daily max 18U 15 mL 3 05/23/2024 Active Insulin Pen Needle 32G X 4 MM MISCIndications:P oor control type I diabetes mellitus (HCC) 1 Each by Injection route 4 times daily 300 Each 11 05/23/2024 Active ofloxacin (Ocuflox) 0.3 % ophthalmic solution Instill 1 (one) drop into right eye 4 times daily 5 mL 3 06/14/2024 Active acetaZOLAMIDE ER 12hr (Diamox Sequel) 500 MG capsule Take 1 (one) capsule by mouth 2 times daily 60 capsule 1 06/14/2024 Active Active Problems No known active problems Encounters Date Type Department Care Team Description 06/14/2024 8:20 AM INFO ANALYST Clinical Support [facility] - Ophthalmology [address] [place] [address] [phone] Connie Knapp MD Postoperative eye state (Primary Dx) 06/14/2024 8:00 AM INFO ANALYST Office Visit [facility] - Ophthalmology [address] [place] [address] [phone] Connie Knapp MD Postoperative eye state (Primary Dx); Proliferative diabetic retinopathy of left eye associated with type 1 diabetes mellitus, unspecified proliferative retinopathy type 05/23/2024 1:20 PM INFO ANALYST Office Visit [facility] - Endocrinology [address] [place] [phone] Lotus Givens MD Poor control type I diabetes mellitus (Primary Dx); Right retinal detachment; Right eye affected by proliferative diabetic retinopathy with traction retinal detachment involving macula, associated with type 1 diabetes mellitus 05/23/2024 Travel 05/20/2024 Telephone [facility] - Ophthalmology [address] [place] [phone] Kurt Teague MD Appointment 05/16/2024 2:45 PM INFO ANALYST Office Visit [facility] - Ophthalmology [address] [place] [phone] Connie Knapp MD Postoperative eye state (Primary Dx); Proliferative diabetic retinopathy of left eye associated with type 1 diabetes mellitus, unspecified proliferative retinopathy type; Ocular hypertension of right eye 05/16/2024 2:40 PM INFO ANALYST Clinical Support [facility] - Ophthalmology [address] [place] [phone] Connie Knapp MD Epiretinal membrane (ERM), bilateral (Primary Dx); Postoperative eye state 05/16/2024 Travel 05/12/2024 11:36 AM INFO ANALYST - 05/12/2024 11:59 PM INFO ANALYST Hospital Encounter [facility] [address] [place] [address] Discharge Disposition: Home or Self Care 05/12/2024 9:30 AM INFO ANALYST Office Visit [facility] - Ophthalmology [address] [place] [phone] Connie Knapp MD Postoperative eye state (Primary Dx); Proliferative diabetic retinopathy of left eye associated with type 1 diabetes mellitus, unspecified proliferative retinopathy type 05/12/2024 9:10 AM INFO ANALYST Clinical Support [facility] - Ophthalmology [address] [place] [phone] Connie Knapp MD Epiretinal membrane (ERM) of left eye (Primary Dx); Proliferative diabetic retinopathy of left eye associated with type 1 diabetes mellitus, unspecified proliferative retinopathy type 05/12/2024 Travel 04/30/2024 Telephone [facility] - Ophthalmology [address] [place] [phone] Gallito Gillette MD Eye Problem from Last 3 Months Social History Tobacco Use Types Packs/Day Years Used Date Smoking Tobacco: Never Smokeless Tobacco: Never Tobacco Cessation:Counseling Given: Not Answered Alcohol Use Standard Drinks/Week Comments Yes 0 (1 standard drink = 0.6 oz pur e alcohol) socially Sex and Gender Information Value Date Recorded Sex Assigned at Not on file Gender Identity Not on file Sexual Orientation Not on file Last Filed Vital Signs Vital Sign Reading Time Taken Comments Blood Pressure 142/88 05/23/2024 1:23 PM INFO ANALYST Pulse 83 05/23/2024 1:23 PM INFO ANALYST Temperature 36.1 C (97 F) 03/16/2024 3:20 PM INFO ANALYST Respiratory Rate 13 03/16/2024 4:00 PM INFO ANALYST Oxygen Saturation 98% 05/23/2024 1:23 PM INFO ANALYST Inhaled Oxygen Concentration - - Weight 61.2 kg (135 lb) 05/23/2024 1:23 PM INFO ANALYST Height 165.1 cm (5' 5 ) 05/23/2024 1:23 PM INFO ANALYST Body Mass Index 22.47 05/23/2024 1:23 PM INFO ANALYST Plan of Treatment Upcoming Encounters Date Type Department Care Team (Late st Contact Info) Description 08/15/2024 9:30 AM CDT Office Visit [facility] - Ophthalmology [address] [place] [phone] Connie Knapp MD [address] [place] [phone] Health Maintenance Due Date Last Done Comments HIV SCREENING 2009 HEPATITIS C SCREENING 05/20/2012 DTAP/TDAP/TD VACCINES (1 - Tdap) 2013 HEPATITIS B VACCINE (1 of 3 - 19+ 3-dose series) 2013 PNEUMOCOCCAL VACCINE (1 of 2 - PCV) 2013 COVID-19 VACCINE ( - 2023-2 5 season) 2024 INFLUENZA VACCINE (#1) 2024 DEPRESSION SCREENING 05/04/2024 ZOSTER VACCINE (1 of 2) 2044 HIB VACCINE Aged Out No longer eligi ble based on patient's age to complete this topic HPV VACCINE Aged Out No longer eligi ble based on patient's age to complete this topic MENINGOCOCCAL (Group B) VACC INE SHARED DECISION-MAKING Aged Out No longer eligibl e based on patient's age to complete this topic MENINGOCOCCAL GROUPS A/C/Y/W VACCINE Aged Out No longer eligible b ased on patient's age to complete this topic Procedures Procedure Name Priority Date/Time Associated Diagnosis Comments ADMINISTRATION AVASTIN LEFT EYE Routine 06/14/2024 1:23 PM INFO ANALYST Proliferative diabetic retinopathy of left eye associated with type 1 diabetes mellitus, unspecified proliferative retinopathy type RETINAL ANALYSIS OCT Routine 06/14/2024 8:16 AM INFO ANALYST Postoperative eye state HEMOGLOBIN A1C - POINT OF CARE (AMB) [facility] Routine 05/23/2024 1:32 PM INFO ANALYST Poor control type I diabetes mellitus ADMINISTRATION AVASTIN LEFT EYE Routine 05/19/2024 9:02 AM INFO ANALYST Proliferative diabetic retinopathy of left eye associated with type 1 diabetes mellitus, unspecified proliferative retinopathy type RETINAL ANALYSIS OCT Routine 05/16/2024 2:39 PM INFO ANALYST Epiretinal membrane (ERM), bilateral COMPREHENSIVE METABOLIC PANEL Routine 05/12/2024 11:55 AM INFO ANALYST Proliferative diabetic retinopathy of left eye associated with type 1 diabetes mellitus, unspecified proliferative retinopathy type RETINAL ANALYSIS OCT Routine 05/12/2024 9:06 AM INFO ANALYST Proliferative diabetic retinopathy of left eye associated with type 1 diabetes mellitus, unspecified proliferative retinopathy type Epiretinal membrane (ERM) of left eye from Last 3 Months Results * ADMINISTRATION AVASTIN LEFT EYE (06/14/2024 1:23 PM INFO ANALYST) Anatomical Region Laterality Modality Head Other Narrative 06/27/2024 2:30 PM INFO ANALYST Intravitreal Injection Note Procedure: Intravitreal injections of Avastin (Bevacizumab), left eye Route of administration: Intravitreal Dosage: 1.25 mg (Avastin) Amount administered: 0.05 mL Lot number: [id number] Expiration date: 09/26/2024 Diagnosis: Postoperative eye state [Z98.890] Anesthesia: proparacaine, lidocaine Prep: 5% Betadine Solution Description of Procedure: After informed consent was obtained, time out was performed. Site was confirmed. Topical anesthetic was instilled and subconjunctival injection of lidocaine was injected. 5% Betadine solution was placed in the left eye. Eyelid margins were cleaned with betadine swab. Lid speculum was placed. Another drop of betadine was placed on the site of injection. The injection was given approximately 4 mm (phakic) to the superotemporal limbus. The speculum was then removed and the eye was rinsed with sterile saline. Hand motion visual acuity was present following the injection. The patient tolerated the procedure well with no complications. We reviewed the warning signs of endophthalmitis and the patient was instructed to follow-up as directed, sooner for any concerning visual signs or symptoms. Dr. Knapp performed the entirety of the procedure. Lizzeth Carvajal MD Ophthalmology 06/14/2024 1:23 PM I am the attending on the encounter. I personally performed the procedure without complications. Connie Knapp MD Attending, Retina service Date of service 06/14/2024 Connie Knapp MD OPHTHALMOLOGY SER VICES ORDERABLES * RETINAL ANALYSIS OCT (06/14/2024 8:16 AM INFO ANALYST) Anatomical Region Laterality Modality Head External-Camera Photography Narrative 06/27/2024 2:29 PM INFO ANALYST Images from the original result were not included. Macula OCT: OD: noncentral SRF, trace ERM, DRIL and thinning, appears slightly improved however difficult to assess given poor view and unable to do progression OS: Trace ERM, DRIL, stable from prior OD (top 05/16/24, bottom 06/14/2024) OS (top 05/16/24, bottom 06/14/2024) Connie Knapp MD OPHTHALMOLOGY [facility] ED ORD W PACS * HEMOGLOBIN A1C - POINT OF CARE (AMB) [facility] (05/23/2024 1:32 PM INFO ANALYST) Hemoglobin A1c POCT 11.6 % [facility] [address] BLOOD SPECIMEN / Unknown 05/23/2024 1:32 PM INFO ANALYST Lotus Givens MD LAB - POINT OF CARE ORDERABLES [facility] [address], [address] [place] [address], [facility] [phone] * ADMINISTRATION AVASTIN LEFT EYE (05/19/2024 9:02 AM INFO ANALYST) Anatomical Region Laterality Modality Head Other Narrative 05/19/2024 9:02 AM INFO ANALYST Intravitreal Injection Note Procedure: Intravitreal injections of Avastin (Bevacizumab), left eye Route of administration: Intravitreal Dosage: 1.25 mg (Avastin) Amount administered: 0.05 mL Lot number: [id number] Expiration date: 08/04/24 Diagnosis: Postoperative eye state [Z98.890] Anesthesia: proparacaine, lidocaine Prep: 5% Betadine Solution Description of Procedure: After informed consent was obtained, time out was performed. Site was confirmed. Topical anesthetic was instilled and subconjunctival injection of lidocaine was injected. 5% Betadine solution was placed in the left eye. Eyelid margins were cleaned with betadine swab. Lid speculum was placed. Another drop of betadine was placed on the site of injection. The injection was given approximately 4 mm (phakic) to the superotemporal limbus. The speculum was then removed and the eye was rinsed with sterile saline. Hand motion visual acuity was present following the injection. The patient tolerated the procedure well with no complications. We reviewed the warning signs of endophthalmitis and the patient was instructed to follow-up as directed, sooner for any concerning visual signs or symptoms. Dr. Knapp performed the entirety of the procedure. Miranda Lee MD 05/16/2024 5:08 PM I am the attending on the encounter. I personally performed the procedure without complications. Connie Knapp MD Attending, Retina service Date of service 05/16/2024 Connie Knapp MD OPHTHALMOLOGY SER VICES ORDERABLES * RETINAL ANALYSIS OCT (05/16/2024 2:39 PM INFO ANALYST) Anatomical Region Laterality Modality Head External-Camera Photography Narrative 05/19/2024 9:03 AM INFO ANALYST Macula OCT: OD: SRF improving, now non central, trace ERM, DRIL and thinning OS: Trace ERM, DRIL Connie Knapp MD [facility]Y [facility]D [facility]ACS * (ABNORMAL) COMPREHENSIVE METABOLIC PANEL (05/12/2024 11:55 AM INFO ANALYST) BUN 17 7 - 26 mg/dL 05/12/2024 1:24 PM [facility] Creatinine 1.10 0.71 - 1.16 mg/dL 05/12/2024 1:24 PM [facility] Sodium 134(L) 136 - 145 mmol/L 05/12/2024 1:24 PM [facility] Potassium 4.6(H) 3.5 - 4.5 mmol/L 05/12/2024 1:24 PM [facility] Chloride 100 98 - 107 mmol/L 05/12/2024 1:24 PM [facility] CO2 26 22 - 29 mmol/L 05/12/2024 1:24 PM [facility] Glucose 391(H) 70 - 99 mg/dL 05/12/2024 1:24 PM [facility] Calcium 8.9 8.4 - 10.2 mg/dL 05/12/2024 1:24 PM [facility] Protein Total 6.8 6.0 - 8.3 g/dL 05/12/2024 1:24 PM [facility] Albumin 3.4 3.4 - 5.0 g/dL 05/12/2024 1:24 PM [facility] Bilirubin Total 0.3 0.2 - 1.2 mg/dL 05/12/2024 1:24 PM [facility] Alkaline Phosphatase 152(H) 40 - 150 U/L 05/12/2024 1:24 PM [facility] ALT 25 5 - 55 U/L 05/12/2024 1:24 PM [facility] AST 13 5 - 34 U/L 05/12/2024 1:24 PM [facility] Anion Gap 8 6 - 16 05/12/2024 1:24 PM [facility] BUN/Creatinine Ratio 15 7 - 23 05/12/2024 1:24 PM INFO ANALYST [facility] Osmolality Calculated 296(H) 275 - 295 mOsm/kg 05/12/2024 1:24 PM [facility] Albumin/Globulin Ratio 1.0(L) 1.1 - 2.3 05/12/2024 1:24 PM [facility] eGFR by CKD-EPI >90 >=90 mL/min/1.7 3 m2 05/12/2024 1:24 PM [facility] Blood BLOOD SPECIMEN / Unknown Lab Venipuncture / Unknown 05/12/2024 11:55 AM INFO ANALYST 05/12/2024 12:53 PM INFO ANALYST Connie Knapp MD LAB - CHEMISTRY O RDERABLES [facility] [address] [place] [address], [facility] [phone] * RETINAL ANALYSIS OCT (05/12/2024 9:06 AM INFO ANALYST) Anatomical Region Laterality Modality Head External-Camera Photography Narrative 05/12/2024 10:54 AM INFO ANALYST Images from the original result were not included. OCT Macula OD: Unable to obtain OS: DRIL, irregular foveal contour, thinning, trace ERM, dry OS (top 04/21/2024, bottom 05/12/2024) Connie Knapp MD OPHTHALMOLOGY [facility] ED ORD W PACS from Last 3 Months Care Teams Curriculum And Assessment Coordinator Relationship Specialty Start Date End Date Lindsay Abdi MD [address] [place] [address] PCP - General Family Medicine 02/08/24
--- OUTSIDE RECORDS SUMMARY | 2024-07-29 11:01 | XMS_ITS | Encounter Summary ---
Author Organization [facility] Address [address] [place] [address] Care Team Providers Care Manual Tester Name Role Phone Lindsay Abdi MD Primary Care Provider [phone] Encounter Details Date Type Department Care Team (Late Contact Info) Description 04/22/2024 Telephone [facility] - Ophthalmology [address] [place] [address] [phone] Connie Knapp MD [address] [place] [phone] Social History Tobacco Use Types Packs/Day Years Used Date Smoking Tobacco: Never Smokeless Tobacco: Never Alcohol Use Standard Drinks/Week Comments Yes 0 (1 standard drink = 0.6 oz pur e alcohol) socially Sex and Gender Information Value Date Recorded Sex Assigned at Not on file Gender Identity Not on file Sexual Orientation Not on file documented as of this encounter Plan of Treatment Upcoming Encounters Date Type Department Care Team (Late Contact Info) Description 08/15/2024 9:30 AM CDT Office Visit [facility] - Ophthalmology [address] [place] [address] [phone] Connie Knapp MD [address] [place] [phone] documented as of this encounter Visit Diagnoses Not on filedocumented in this encounter Care Teams Manual Tester Relationship Specialty Start Date End Date Lindsay Abdi MD [address] [place] [address] PCP - General Family Medicine 02/08/24 documented as of this encounter
[2024-07-29 11:24] LABS: Basophils Percent Auto 0.3 % (0.2-1.2); Eosinophils Absolute Auto 0.1 K/mm3 (0-0.3); Eosinophils Percent Auto 1.9 % (0-4.4); Hematocrit 36.6 % (42.0-52.0); Hemoglobin 12.4 g/dL (14.0-18.0); Immature Granulocyte Absolute 0.02 K/mm3 (0.00-0.031); Immature Granulocyte Percent A 0.3 % (0-0.5); Lymphocytes Absolute Auto 2.09 K/mm3 (0.9-3.2); Lymphocytes Percent Auto 33.5 % (18.3-44.2); Mean Corpuscular HGB Conc 33.9 g/dl (32-36); Mean Corpuscular Hemoglobin 29.7 pg (26-34); Mean Corpuscular Volume 87.8 fl (80-100); Mean Platelet Volume 9.4 fl (7.4-10.4); Monocytes Absolute Auto 0.5 K/mm3 (0.1-0.6); Monocytes Percent Auto 7.4 % (2.6-8.5); Neutrophils Absolute Auto 3.5 K/mm3 (1.3-6.7); Neutrophils Percent Auto 56.6 % (45.5-73.1); Platelet Count Result 287 k/mm3 (150-375); Red Blood Count 4.17 M/mm3 (4.6-6.20); Red Cell Distribution Width 12.7 % (11.5-14.5); White Blood Count 6.2 K/mm3 (4.5-10.0)
[2024-07-29 11:37] LABS: INR 0.9
[2024-07-29 11:38] LABS: Partial Thromboplastin Time 27.7 Seconds (22.3-36.8)
[2024-07-29 11:46] LABS: Lactic Acid Reflex 0.8 mmol/L (0.7-2.0)
[2024-07-29] MEDS: INSULIN ASPART (*BKC) 100 UNITS/ML 6 UNITS SUB-Q (11:46)
[2024-07-29 11:51] LABS: Alanine Aminotransferase 82 U/L (6-50); Albumin Level 3.5 g/dL (3.5-5.1); Alkaline Phosphatase 285 U/L (38-126); Anion Gap 6 mmol/L (4-12); Aspartate Amino Transferase 24 U/L (17-59); Bilirubin,Total 0.5 mg/dL (0.2-1.3); Blood Urea Nitrogen 15 mg/dL (9-20); CRP < 0.5 mg/dL (<1.0); Calcium 9.3 mg/dL (8.4-10.2); Carbon Dioxide 27 mmol/L (22-30); Chloride 102 mmol/L (98-107); Estimated CRCL calculation 96 ml/min; Estimated Glomerular Filt Rate > 60; Glucose 326 mg/dL (65-110); Potassium 4.1 mmol/L (3.4-5.0); Sodium 135 mmol/L (137-145)
--- OUTSIDE RECORDS SUMMARY | 2024-07-29 12:17 | XMS_ITS | Clinical Summary ---
Author Organization [facility] Address [address] [place] [address] Care Team Providers Care Motor Assembler Name Role Phone Lindsay Abdi MD Primary Care Provider [phone] Source Comments [facility],non-owned Affiliates and Associated Physician Practices is amultiple site organization consisting of ambulatory clinics and hospital sitesin [place], [place], [place] and [place]. This disclosure is being madepursuant to the Care Everywhere program and may not contain all information available regarding this patient. Last updated 18.[facility] Allergies No known active allergies Medications * [...] Department Care Team Description 06/14/2024 8:20 AM TOMBSTONE ERECTOR HELPER Clinical Support [facility] - Ophthalmology [address] [place] [phone] Connie Knapp MD Postoperative eye state (Primary Dx) 06/14/2024 8:00 AM TOMBSTONE ERECTOR HELPER Office Visit [facility] - Ophthalmology [address] [place] [address] [phone] Connie Knapp MD Postoperative eye state (Primary Dx); Proliferative diabetic retinopathy of left eye associated with type 1 diabetes mellitus, unspecified proliferative retinopathy type 05/23/2024 1:20 PM TOMBSTONE ERECTOR HELPER Office Visit [facility] - Endocrinology [address] [place] [phone] Lotus Givens MD Poor control type I diabetes mellitus (Primary Dx); Right retinal detachment; Right eye affected by proliferative diabetic retinopathy with traction retinal detachment involving macula, associated with type 1 diabetes mellitus 05/23/2024 Travel 05/20/2024 Telephone [facility] - Ophthalmology [address] [place] [phone] Kurt Teague MD Appointment 05/16/2024 2:45 PM TOMBSTONE ERECTOR HELPER Office Visit [facility] - Ophthalmology [address] [place] [phone] Connie Knapp MD Postoperative eye state (Primary Dx); Proliferative diabetic retinopathy of left eye associated with type 1 diabetes mellitus, unspecified proliferative retinopathy type; Ocular hypertension of right eye 05/16/2024 2:40 PM TOMBSTONE ERECTOR HELPER Clinical Support [facility] - Ophthalmology [address] [place] [phone] Connie Knapp MD Epiretinal membrane (ERM), bilateral (Primary Dx); Postoperative eye state 05/16/2024 Travel 05/12/2024 11:36 AM TOMBSTONE ERECTOR HELPER - 05/12/2024 11:59 PM TOMBSTONE ERECTOR HELPER Hospital Encounter [facility] OP DRAW STATION [address] [place] [address] Discharge Disposition: Home or Self Care 05/12/2024 9:30 AM TOMBSTONE ERECTOR HELPER Office Visit [facility] - Ophthalmology [address] [place] [phone] Connie Knapp MD Postoperative eye state (Primary Dx); Proliferative diabetic retinopathy of left eye associated with type 1 diabetes mellitus, unspecified proliferative retinopathy type 05/12/2024 9:10 AM TOMBSTONE ERECTOR HELPER Clinical Support [facility] - Ophthalmology [address] [place] [phone] Connie Knapp MD Epiretinal membrane (ERM) of left eye (Primary Dx); Proliferative diabetic retinopathy of left eye associated with type 1 diabetes mellitus, unspecified proliferative retinopathy type 05/12/2024 Travel 04/30/2024 Telephone [facility] - Ophthalmology [address] [place] [phone] Gallito Gillette MD Eye Problem from Last [...] Comments Blood Pressure 142/88 05/23/2024 1:23 PM TOMBSTONE ERECTOR HELPER Pulse 83 05/23/2024 1:23 PM TOMBSTONE ERECTOR HELPER Temperature 36.1 C (97 F) 03/16/2024 3:20 PM TOMBSTONE ERECTOR HELPER Respiratory Rate 13 03/16/2024 4:00 PM TOMBSTONE ERECTOR HELPER Oxygen Saturation 98% 05/23/2024 1:23 PM TOMBSTONE ERECTOR HELPER Inhaled Oxygen Concentration - - Weight 61.2 kg (135 lb) 05/23/2024 1:23 PM TOMBSTONE ERECTOR HELPER Height 165.1 cm (5' 5 ) 05/23/2024 1:23 PM TOMBSTONE ERECTOR HELPER Body Mass Index 22.47 05/23/2024 1:23 PM TOMBSTONE ERECTOR HELPER Plan of Treatment Upcoming Encounters Date Type Department Care Team (Late st Contact Info) Description 08/15/2024 9:30 AM CDT Office Visit [facility] - Ophthalmology [address] [phone] Connie Knapp MD [address] [place] [phone] Health Maintenance Due Date Last [...] AVASTIN LEFT EYE Routine 06/14/2024 1:23 PM TOMBSTONE ERECTOR HELPER Proliferative diabetic retinopathy of left eye associated with type 1 diabetes mellitus, unspecified proliferative retinopathy type RETINAL ANALYSIS OCT Routine 06/14/2024 8:16 AM TOMBSTONE ERECTOR HELPER Postoperative eye state HEMOGLOBIN A1C - POINT OF CARE (AMB) [facility] Routine 05/23/2024 1:32 PM TOMBSTONE ERECTOR HELPER Poor control type I diabetes mellitus ADMINISTRATION AVASTIN LEFT EYE Routine 05/19/2024 9:02 AM TOMBSTONE ERECTOR HELPER Proliferative diabetic retinopathy of left eye associated with type 1 diabetes mellitus, unspecified proliferative retinopathy type RETINAL ANALYSIS OCT Routine 05/16/2024 2:39 PM TOMBSTONE ERECTOR HELPER Epiretinal membrane (ERM), bilateral COMPREHENSIVE METABOLIC PANEL Routine 05/12/2024 11:55 AM TOMBSTONE ERECTOR HELPER Proliferative diabetic retinopathy of left eye associated with type 1 diabetes mellitus, unspecified proliferative retinopathy type RETINAL ANALYSIS OCT Routine 05/12/2024 9:06 AM TOMBSTONE ERECTOR HELPER Proliferative diabetic retinopathy of left eye associated with type 1 diabetes mellitus, unspecified proliferative retinopathy type Epiretinal membrane (ERM) of left eye from Last 3 Months Results * ADMINISTRATION AVASTIN LEFT EYE (06/14/2024 1:23 PM TOMBSTONE ERECTOR HELPER) Anatomical Region Laterality Modality Head Other Narrative 06/27/2024 2:30 PM TOMBSTONE ERECTOR HELPER Intravitreal Injection Note Procedure: Intravitreal injections of Avastin (Bevacizumab), left eye Route of administration: Intravitreal Dosage: 1.25 mg (Avastin) Amount administered: 0.05 mL Lot number: [id number] Expiration date: 09/26/2024 Diagnosis: Postoperative eye state [...] * RETINAL ANALYSIS OCT (06/14/2024 8:16 AM TOMBSTONE ERECTOR HELPER) Anatomical Region Laterality Modality Head External-Camera Photography Narrative 06/27/2024 2:29 PM TOMBSTONE ERECTOR HELPER Images from the original result were not [...] OF CARE (AMB) [facility] (05/23/2024 1:32 PM TOMBSTONE ERECTOR HELPER) Hemoglobin A1c POCT 11.6 % [facility] [address] BLOOD SPECIMEN / Unknown 05/23/2024 1:32 PM TOMBSTONE ERECTOR HELPER Lotus Givens MD LAB - POINT OF CARE ORDERABLES [facility] [address] [place] [address], [facility] [phone] * ADMINISTRATION AVASTIN LEFT EYE (05/19/2024 9:02 AM TOMBSTONE ERECTOR HELPER) Anatomical Region Laterality Modality Head Other Narrative 05/19/2024 9:02 AM TOMBSTONE ERECTOR HELPER Intravitreal Injection Note Procedure: Intravitreal injections of Avastin (Bevacizumab), left eye Route of administration: Intravitreal Dosage: 1.25 mg (Avastin) Amount administered: 0.05 mL Lot number: [id number] Expiration date: 08/04/24 Diagnosis: Postoperative eye state [...] * RETINAL ANALYSIS OCT (05/16/2024 2:39 PM TOMBSTONE ERECTOR HELPER) Anatomical Region Laterality Modality Head External-Camera Photography Narrative 05/19/2024 9:03 AM TOMBSTONE ERECTOR HELPER Macula OCT: OD: SRF improving, now non central, trace ERM, DRIL and thinning OS: Trace ERM, DRIL Connie Knapp MD OPHTHALMOLOGY [facility] ED ORD W PACS * (ABNORMAL) COMPREHENSIVE METABOLIC PANEL (05/12/2024 11:55 AM TOMBSTONE ERECTOR HELPER) BUN 17 7 - 26 mg/dL 05/12/2024 1:24 PM [facility] Creatinine 1.10 0.71 - 1.16 mg/dL 05/12/2024 1:24 PM [facility] Sodium 134(L) 136 - 145 mmol/L 05/12/2024 1:24 PM [facility] Potassium 4.6(H) 3.5 - 4.5 mmol/L 05/12/2024 1:24 PM [facility] Chloride 100 98 - 107 mmol/L 05/12/2024 1:24 PM [facility] CO2 26 22 - 29 mmol/L 05/12/2024 1:24 PM [facility] Glucose 391(H) 70 - 99 mg/dL 05/12/2024 1:24 PM [facility] Calcium 8.9 8.4 - 10.2 mg/dL 05/12/2024 1:24 PM [facility] Protein Total 6.8 6.0 - 8.3 g/dL 05/12/2024 1:24 PM [facility] Albumin 3.4 3.4 - 5.0 g/dL 05/12/2024 1:24 PM [facility] Bilirubin Total 0.3 0.2 - 1.2 mg/dL 05/12/2024 1:24 PM [facility] Alkaline Phosphatase 152(H) 40 - 150 U/L 05/12/2024 1:24 PM [facility] ALT 25 5 - 55 U/L 05/12/2024 1:24 PM [facility] AST 13 5 - 34 U/L 05/12/2024 1:24 PM [facility] Anion Gap 8 6 - 16 05/12/2024 1:24 PM [facility] BUN/Creatinine Ratio 15 7 - 23 05/12/2024 1:24 PM TOMBSTONE ERECTOR HELPER [facility] Osmolality Calculated 296(H) 275 - 295 mOsm/kg 05/12/2024 1:24 PM [facility] Albumin/Globulin Ratio 1.0(L) 1.1 - 2.3 05/12/2024 1:24 PM [facility] eGFR by CKD-EPI >90 >=90 mL/min/1.7 3 m2 05/12/2024 1:24 PM [facility] Blood BLOOD SPECIMEN / Unknown Lab Venipuncture / Unknown 05/12/2024 11:55 AM TOMBSTONE ERECTOR HELPER 05/12/2024 12:53 PM TOMBSTONE ERECTOR HELPER Connie Knapp MD LAB - CHEMISTRY O RDERABLES [facility] [address] [place] [address], [facility] [phone] * RETINAL ANALYSIS OCT (05/12/2024 9:06 AM TOMBSTONE ERECTOR HELPER) Anatomical Region Laterality Modality Head External-Camera Photography Narrative 05/12/2024 10:54 AM TOMBSTONE ERECTOR HELPER Images from the original result were not included. OCT Macula OD: Unable to obtain OS: DRIL, irregular foveal contour, thinning, trace ERM, dry OS (top 04/21/2024, bottom 05/12/2024) Connie Knapp MD OPHTHALMOLOGY [facility] ORD W PACS from Last 3 Months Care Teams Motor Assembler Relationship Specialty Start Date End Date Lindsay Abdi MD [address] [place] [address] PCP - General Family Medicine 02/08/24
--- OUTSIDE RECORDS SUMMARY | 2024-07-29 12:17 | XMS_ITS | Encounter Summary ---
Author Organization [facility] Address [address] [place] [address] Care Team Providers Care Enamel Buffer Name Role Phone Lindsay Abdi MD Primary Care Provider [phone] Encounter Details Date Type Department Care Team (Late Contact Info) Description 04/22/2024 Telephone [facility] - Ophthalmology [address] [place] [address] [phone] Connie Knapp MD [address] [place] [phone] Social History Tobacco Use Types Packs/Day Years [...] Office Visit [facility] - Ophthalmology [address] [place] [address] [phone] Connie Knapp MD [address] [place] [phone] documented as of this encounter Visit Diagnoses Not on filedocumented in this encounter Care Teams Enamel Buffer Relationship Specialty Start Date End Date Lindsay Abdi MD [address] [place] [address] PCP - General Family Medicine 02/08/24 documented as of this encounter
--- NOTE | 2024-07-29 12:44 | ED_ITS ---
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 He was unable to see any foot doctor. He denies any fever or drainage from the foot. Onset (ago): month(s) Location: lower extremity (Right foot on the plantar aspect) Radiation: non-radiation Relieving factors: none Exacerbating factors: none Related Data Allergies Allergy/AdvReac Type Severity Reaction Status Date / Time No Known Allergies Allergy Verified 07/29/24 11:00 Review of Systems 2 Review of Systems: All systems reviewed & are unremarkable except as noted in HPI and below Constitutional: Constitutional: Reports no additional constitutional complaints Eyes: Eyes: Reports no additional eye complaints ENT: Reports system reviewed and no additional complaints, except as documented Cardiovascular: Cardiovascular: Reports no additional cardiovascular complaints Gastrointestinal: Gastrointestinal: Reports no additional gastrointestinal complaints Musculoskeletal: Musculoskeletal: Reports as per HPI Integumentary/Breasts: Skin/Breast: Reports system reviewed and no additional complaints, except as docu Neurologic: Reports system reviewed and no additional complaints, except as documented PMFSH Past Medical History Medical History (Updated 07/29/24 @ 12:56 by Jonathan Jackson MD) Hyperglycemia Social History Social History Smoking status: Current every day smoker Tobacco type: e-cigarettes/vaping Alcohol intake: current Drinks per week: 2 Substance use: current Substance use type: marijuana Last use: 01/23/23 Lack of Transportation: YES Lack of Food: Often True Current Housing: I Have Housing Concerned About Future Housing: No Difficulty Paying Gas/Electric Bills: YES Difficulty Paying for Meds: No Currently Unemployed: No Education: High School Diploma/GED Difficulty w/ Childcare or Family Care: No Spiritual care concerns: No Exam 2 Narrative: GENERAL: Well-appearing, , and in no acute distress. HEAD: Normocephalic, atraumatic. EYES: PERRLA and EOMI. ENT: Nares clear, no rhinorrhea or epistaxis. Mucous membranes moist. NECK: Supple. CHEST: Clear to auscultation. No respiratory distress. HEART: Regular rate and rhythm. No murmur heard. Normal peripheral pulses. ABDOMEN: Soft, nontender, nondistended, normal active bowel sounds. EXTREMITIES: Normal range of motion. No edema.has pressure ulcer on the plantar aspect of the right foot , no drainage SKIN: Warm, dry, no rash. NEURO: No focal deficits. Alert and oriented x3. PSYCH: Normal mood and affect. Course Course Emergency Course: Notified patient about his lab work and x-ray findings. He was evaluated by wound care nurse, I debrided the wound recommended Servando. And follow-up with podiatry. Patient does feel comfortable going home advised to keep the wound clean, return to the ER if he has high fever or chills. Vital Signs Vital signs: Vital Signs Temperature 36.6 C 07/29/24 10:27 Pulse Rate 87 07/29/24 10:27 Respiratory Rate 20 07/29/24 10:27 Blood Pressure 177/108 H 07/29/24 10:27 Pulse Oximetry 100 07/29/24 10:27 Oxygen Delivery Room Air 07/29/24 10:27 Temperature 36.6 C 07/29/24 10:27 Pulse Rate 87 07/29/24 10:27 Respiratory Rate 20 07/29/24 10:27 Blood Pressure 177/108 H 07/29/24 10:27 Pulse Oximetry 100 07/29/24 10:27 Oxygen Delivery Room Air 07/29/24 10:27 Medical Decision Making Vital Signs Vital Signs: Vital Signs Temperature 36.6 C 07/29/24 10:27 Pulse Rate 87 07/29/24 10:27 Respiratory Rate 20 07/29/24 10:27 Blood Pressure 177/108 H 07/29/24 10:27 Pulse Oximetry 100 07/29/24 10:27 Oxygen Delivery Room Air 07/29/24 10:27 Temperature 36.6 C 07/29/24 10:27 Pulse Rate 87 07/29/24 10:27 Respiratory Rate 20 07/29/24 10:27 Blood Pressure 177/108 H 07/29/24 10:27 Pulse Oximetry 100 07/29/24 10:27 Oxygen Delivery Room Air 07/29/24 10:27 Lab Data 07/29/24 11:16 07/29/24 11:16 Labs: Lab Results 07/29/24 07/29/24 Range/Units 10:31 11:16 WBC 6.2 (4.5-10.0) K/mm3 RBC 4.17 L (4.6-6.20) M/mm3 Hgb 12.4 L (14.0-18.0) g/dL Hct 36.6 L (42.0-52.0) % MCV 87.8 (80-100) fl MCH 29.7 (26-34) pg MCHC 33.9 (32-36) g/dl RDW 12.7 (11.5-14.5) % Plt Count 287 (150-375) k/mm3 MPV 9.4 (7.4-10.4) fl Immature Gran % (Auto) 0.3 (0-0.5) % Neut % (Auto) 56.6 (45.5-73.1) % Lymph % (Auto) 33.5 (18.3-44.2) % [place] % (Auto) 7.4 (2.6-8.5) % Eos % (Auto) 1.9 (0-4.4) % Baso % (Auto) 0.3 (0.2-1.2) % Lymph # (Auto) 2.09 (0.9-3.2) K/mm3 [place] # (Auto) 0.5 (0.1-0.6) K/mm3 Eos # (Auto) 0.1 (0-0.3) K/mm3 Baso # (Auto) 0.0 (0.0-0.1) K/mm3 Abs Immat Gran (auto) 0.02 (0.00-0.031) K/mm3 Absolute Neuts (auto) 3.5 (1.3-6.7) K/mm3 Absolute Nucleated RBC 0.000 (0.0-0.012) K/mm3 Nucleated RBC % 0.0 (0.0-0.2) % PT 13.0 (11.1-14.7) Seconds INR 0.9 APTT 27.7 (22.3-36.8) Seconds Sodium 135 L (137-145) mmol/L Potassium 4.1 (3.4-5.0) mmol/L Chloride 102 (98-107) mmol/L Carbon Dioxide 27 (22-30) mmol/L Anion Gap 6 (4-12) mmol/L BUN 15 D (9-20) mg/dL Creatinine 0.80 (0.7-1.3) mg/dL Estim Creat Clear Calc 96 ml/min Estimated GFR > 60 (59 - ) Glucose 326 H (65-110) mg/dL POC Capillary Glucose 332 H (65-105) mg/dl Lactic Acid 0.8 (0.7-2.0) mmol/L Calcium 9.3 (8.4-10.2) mg/dL Total Bilirubin 0.5 (0.2-1.3) mg/dL AST 24 (17-59) U/L ALT 82 H (6-50) U/L Alkaline Phosphatase 285 H (38-126) U/L C-Reactive Protein < 0.5 (<1.0) mg/dL Total Protein 7.0 (6.3-8.2) g/dL Albumin 3.5 (3.5-5.1) g/dL Discharge Plan Discharge Clinical Impression: Pressure ulcer of right foot, stage 3, Hyperglycemia without ketosis Patient Disposition: Home, Self-Care Condition: Stable Instructions: Chronic Wounds (ED) Additional Instructions: Continue to use Santyl twice a day, recommended ED follow-up with Podiatry. Patient Language: Romansh Prescriptions: No Action insulin glargine 100 unit/mL (3 mL) insulin pen 7 unit subcut HS Qty: 15 0RF (DME) OneTouch Verio test strips Strip Qty: 1 0RF Rx Instructions: May substitute to in-stock and/or covered by insurance strips. Use As Directed (DME) pen needle, diabetic [BD Ultra-Fine Joy Pen Needle] 32 gauge x 5/32 needle Qty: 1 0RF Rx Instructions: May substitute to meet patient needs. Use As Directed (DME) lancets [OneTouch Delica Plus Lancet] 30 gauge misc Qty: 1 0RF Rx Instructions: May substitute to in-stock and/or covered by insurance lancets. Use As Directed Follow-up/Referrals: Lindsay Abdi MD [Primary Care Provider] - Devon Ramirez Jr., DPM [Physician] - Time of Disposition: 12:55
== END 2024-07-29 13:04 | disposition home or self-care (01) ==
PROVIDERS: Physician Assistant; Emergency Provider Family Medicine; PCP Family Medicine
DX: L89.613 Pressure ulcer of right heel, stage 3 (principal); R73.9 Hyperglycemia, unspecified; F17.290 Nicotine dependence, other tobacco product, uncomplicated
CPT/HCPCS: 36415; 80053; 82948; 83605; 85025; 85610; 85730; 86140; 87040; 99283; J1815

== ENCOUNTER 2024-08-12 16:16 | Inpatient (IN) | payer BC, SELFPAY ==
--- NOTE | ~2024-08-12 | XR_ITS ---
XR foot RT min 3V Ordering provider: Charleen Philippe APRN History: . R foot diabetic ulcer . Comparison: None. FINDINGS: BONES: No acute fracture or dislocation. Osteopenia of the bones. JOINT SPACES: Normal. No tarsal coalition. SOFT TISSUES: Soft tissue swelling over the fifth metatarsophalangeal joint. Highly suggestive ulcer in the plantar aspect of the foot. IMPRESSION: No acute osseous abnormality of the right foot. Reviewed, dictated and finalized at location A.
--- NOTE | ~2024-08-12 | XR_ITS ---
XR ankle RT min 3V Ordering provider: Charleen Philippe APRN History: . R foot diabetic ulcer . Comparison: None. FINDINGS: BONES: No acute fracture or dislocation. Bony fragment seen near to the fibula which is most likely due to old fracture or nonunited apophysis . JOINT SPACES: Normal. SOFT TISSUES: Soft tissue swelling over the medial and lateral malleoli. IMPRESSION: No definite acute osseous abnormality of the right ankle. Small bony fragment near to the fibular hea d. Soft tissue swelling over the medial and lateral malleoli. Reviewed, dictated and finalized at location A. IMPRESSION: No definite acute osseous abnormality of the right ankle. Small bony fragment n ear to the fibular head. Soft tissue swelling over the medial and lateral malleoli.
--- NOTE | ~2024-08-12 | US_ITS ---
EXAMINATION: US art doppler w press LE BI DATE: 08/14/2024 10:43 INDICATION: Diabetic with foot ulcer. Nonpalpable pulses. TECHNIQUE: Segmental pressures and plethysmographic and Doppler waveforms of the brachial and lower e xtremity arteries were obtained. COMPARISON: None. FINDINGS: Right and left brachial artery pressures of 151 mm Hg and 138 mm Hg, respectively, are concordant (no rmal difference <= 30 mmHg). The right and left high-thigh pressure indices are unable be obtained du e to inability to occlude the arteries at the upper thighs (normal > 1.2). The right ankle-brachial index (ALESSIA) is 0.84 (normal >= 0.9-1). The right great toe-brachial index (T BI) is 0.48 (normal >= 0.6-0.8). The right lower extremity segmental pressure gradients are increased between the right [id number]-[id number] popliteal artery and the right dorsalis pedis artery (normal gradie nts <= 20-30 mmHg between adjacent levels on the same leg or the same levels on the two legs). Arteri al waveforms demonstrate with normal brisk systolic upstrokes throughout the arteries of the right lo wer limb. The left ALESSIA and segmental pressure gradients are unable to be obtained due to inability to occlude t he vessels at the ankle and [id number] popliteal artery. The left TBI is 0.99. Arterial waveforms demonstrate normal brisk systolic upstrokes throughout the arteries of the left lower limb. IMPRESSION: 1. 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 2. No significant arterial occlusive disease to the left lower limb with normal left TBI. Reviewed, dictated and finalized at location A. IMPRESSION: 1. 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 2. No significant arterial occlusive disease to the left lower limb with normal left TBI.
--- NOTE | ~2024-08-12 | US_ITS ---
BILATERAL LOWER EXTREMITY VENOUS ULTRASOUND Ordering provider: Campos Burnette MD History: . asymmetric edema . Comparison: None. FINDINGS: RIGHT LOWER EXTREMITY VEINS: --COMMON FEMORAL: Patent and free of thrombus. Normal compressibility, phasic flow and augmentation. --PROXIMAL SUPERFICIAL FEMORAL: Patent and free of thrombus. Normal compressibility, phasic flow and augmentation. --DISTAL SUPERFICIAL FEMORAL: Patent and free of thrombus. Normal compressibility, phasic flow and au gmentation. --POPLITEAL: Patent and free of thrombus. Normal compressibility, phasic flow and augmentation. --POSTERIOR TIBIAL: Patent and free of thrombus. Normal compressibility, phasic flow and augmentation . LEFT LOWER EXTREMITY VEINS: --COMMON FEMORAL: Patent and free of thrombus. Normal compressibility, phasic flow and augmentation. --PROXIMAL SUPERFICIAL FEMORAL: Patent and free of thrombus. Normal compressibility, phasic flow and augmentation. --DISTAL SUPERFICIAL FEMORAL: Patent and free of thrombus. Normal compressibility, phasic flow and au gmentation. --POPLITEAL: Patent and free of thrombus. Normal compressibility, phasic flow and augmentation. --POSTERIOR TIBIAL: Patent and free of thrombus. Normal compressibility, phasic flow and augmentation . Right groin enlarged lymph node measuring 4.3 x 1.5 x 4.4 cm. Clinical correlation advised. IMPRESSION: Negative bilateral lower extremity venous US. No deep vein thrombosis. Right inguinal enlarged lymph node. Clinical correlation advised. Reviewed, dictated and finalized at location A.
--- NOTE | ~2024-08-12 | XR_ITS ---
EXAM/PROCEDURE: XR chest 1V portable - 08/13/2024 12:39 CDT HISTORY: 29 years old Male with cough, fever TECHNIQUE: Two view(s) of the chest. COMPARISON: None available. FINDINGS: LUNGS/ PLEURA: Diffuse groundglass and airspace opacities in the right lung, concerning for pneumonia . No pleural effusions or pneumothorax. HEART/ MEDIASTINUM: Heart appears normal in size. BONES: No acute osseous abnormality. OTHER: Visualized upper abdomen is unremarkable. IMPRESSION: Diffuse groundglass and airspace disease in the right lung, concerning for pneumonia. Short-term foll ow-up chest radiograph is recommended after appropriate clinical therapy. Reviewed, dictated and finalized at location A. IMPRESSION: Diffuse groundglass and airspace disease in the right lung, concerning for pneu monia. Short-term follow-up chest radiograph is recommended after appropriate c linical therapy.
--- OUTSIDE RECORDS SUMMARY | 2024-08-12 16:18 | XMS_ITS | Clinical Summary ---
Author Organization [facility] Address [address] [place] [address] Care Team Providers Care New Autos Delivery Driver Name Role Phone Lindsay Abdi MD Primary Care Provider [phone] Source Comments [facility],non-owned Affiliates and Associated Physician Practices is amultiple site organization consisting of ambulatory clinics and hospital sitesin [place], [place] and [place]. This disclosure is being madepursuant to the Care Everywhere program and may not contain all information available regarding this patient. Last updated 18.[facility] Allergies No known active allergies Medications * [...] Department Care Team Description 06/14/2024 8:20 AM WAREHOUSE PICKER Clinical Support [facility] - Ophthalmology [address] [place] [address] [phone] Connie Knapp MD Postoperative eye state (Primary Dx) 06/14/2024 8:00 AM WAREHOUSE PICKER Office Visit [facility] - Ophthalmology [address] [place] [address] [phone] Connie Knapp MD Postoperative eye state (Primary Dx); Proliferative diabetic retinopathy of left eye associated with type 1 diabetes mellitus, unspecified proliferative retinopathy type 05/23/2024 1:20 PM WAREHOUSE PICKER Office Visit [facility] - Endocrinology [address] [place] [phone] Lotus Givens MD Poor control type I diabetes mellitus (Primary Dx); Right retinal detachment; Right eye affected by proliferative diabetic retinopathy with traction retinal detachment involving macula, associated with type 1 diabetes mellitus 05/23/2024 Travel 05/20/2024 Telephone [facility] - Ophthalmology [address] [place] [phone] Kurt Teague MD Appointment 05/16/2024 2:45 PM WAREHOUSE PICKER Office Visit [facility] - Ophthalmology [address] [place] [phone] Connie Knapp MD Postoperative eye state (Primary Dx); Proliferative diabetic retinopathy of left eye associated with type 1 diabetes mellitus, unspecified proliferative retinopathy type; Ocular hypertension of right eye 05/16/2024 2:40 PM WAREHOUSE PICKER Clinical Support [facility] - Ophthalmology [address] [place] [phone] Connie Knapp MD Epiretinal membrane (ERM), bilateral (Primary Dx); Postoperative eye state 05/16/2024 Travel from Last 3 Months Social History Tobacco [...] Comments Blood Pressure 142/88 05/23/2024 1:23 PM WAREHOUSE PICKER Pulse 83 05/23/2024 1:23 PM WAREHOUSE PICKER Temperature 36.1 C (97 F) 03/16/2024 3:20 PM WAREHOUSE PICKER Respiratory Rate 13 03/16/2024 4:00 PM WAREHOUSE PICKER Oxygen Saturation 98% 05/23/2024 1:23 PM WAREHOUSE PICKER Inhaled Oxygen Concentration - - Weight 61.2 kg (135 lb) 05/23/2024 1:23 PM WAREHOUSE PICKER Height 165.1 cm (5' 5 ) 05/23/2024 1:23 PM WAREHOUSE PICKER Body Mass Index 22.47 05/23/2024 1:23 PM WAREHOUSE PICKER Plan of Treatment Upcoming Encounters Date Type Department Care Team (Late st Contact Info) Description 08/15/2024 9:30 AM CDT Office Visit [facility] - Ophthalmology [address] [place] [phone] Conine Knapp MD [address] [place] [phone] Health Maintenance Due Date Last Done Comments HIV SCREENING 2009 HEPATITIS C SCREENING 05/20/2012 DTAP/TDAP/TD VACCINES (1 - Tdap) 2013 HEPATITIS B VACCINE (1 of 3 - 19+ 3-dose series) 2013 PNEUMOCOCCAL VACCINE (1 of 2 - PCV) 2013 COVID-19 VACCINE (1 - 2023-2 5 season) 2024 DEPRESSION SCREENING 05/04/2024 INFLUENZA VACCINE (Season Ended) 2025 ZOSTER VACCINE (1 of 2) 2044 HIB [...] AVASTIN LEFT EYE Routine 06/14/2024 1:23 PM WAREHOUSE PICKER Proliferative diabetic retinopathy of left eye associated with type 1 diabetes mellitus, unspecified proliferative retinopathy type RETINAL ANALYSIS OCT Routine 06/14/2024 8:16 AM WAREHOUSE PICKER Postoperative eye state HEMOGLOBIN A1C - POINT OF CARE (AMB) [facility] Routine 05/23/2024 1:32 PM WAREHOUSE PICKER Poor control type I diabetes mellitus ADMINISTRATION AVASTIN LEFT EYE Routine 05/19/2024 9:02 AM WAREHOUSE PICKER Proliferative diabetic retinopathy of left eye associated with type 1 diabetes mellitus, unspecified proliferative retinopathy type RETINAL ANALYSIS OCT Routine 05/16/2024 2:39 PM WAREHOUSE PICKER Epiretinal membrane (ERM), bilateral from Last 3 Months Results * ADMINISTRATION AVASTIN LEFT EYE (06/14/2024 1:23 PM WAREHOUSE PICKER) Anatomical Region Laterality Modality Head Other Narrative 06/27/2024 2:30 PM WAREHOUSE PICKER Intravitreal Injection Note Procedure: Intravitreal injections of Avastin (Bevacizumab), left eye Route of administration: Intravitreal Dosage: 1.25 mg (Avastin) Amount administered: 0.05 mL Lot number: [id number] Expiration date: 09/26/2024 Diagnosis: Postoperative eye state [...] * RETINAL ANALYSIS OCT (06/14/2024 8:16 AM WAREHOUSE PICKER) Anatomical Region Laterality Modality Head External-Camera Photography Narrative 06/27/2024 2:29 PM WAREHOUSE PICKER Images from the original result were not [...] OF CARE (AMB) [facility] (05/23/2024 1:32 PM WAREHOUSE PICKER) Hemoglobin A1c POCT 11.6 % [address] BLOOD SPECIMEN / Unknown 05/23/2024 1:32 PM WAREHOUSE PICKER Lotus Givens MD LAB - POINT OF CARE ORDERABLES [address], [facility] [address] [place] [address], [facility] [phone] * ADMINISTRATION AVASTIN LEFT EYE (05/19/2024 9:02 AM WAREHOUSE PICKER) Anatomical Region Laterality Modality Head Other Narrative 05/19/2024 9:02 AM WAREHOUSE PICKER Intravitreal Injection Note Procedure: Intravitreal injections of Avastin (Bevacizumab), left eye Route of administration: Intravitreal Dosage: 1.25 mg (Avastin) Amount administered: 0.05 mL Lot number: [id number] Expiration date: 08/04/24 Diagnosis: Postoperative eye state [...] * RETINAL ANALYSIS OCT (05/16/2024 2:39 PM WAREHOUSE PICKER) Anatomical Region Laterality Modality Head External-Camera Photography Narrative 05/19/2024 9:03 AM WAREHOUSE PICKER Macula OCT: OD: SRF improving, now non central, trace ERM, DRIL and thinning OS: Trace ERM, DRIL Connie Knapp MD OPHTHALMOLOGY [facility] ED ORD W PACS from Last 3 Months Care Teams New Autos Delivery Driver Relationship Specialty Start Date End Date Lindsay Abdi MD [address] [place] [address] PCP - General Family Medicine 02/08/24
--- OUTSIDE RECORDS SUMMARY | 2024-08-12 16:18 | XMS_ITS | Encounter Summary ---
Author Organization [facility] Address [address] [place] [address] Care Team Providers Care Bath Design Sales Consultant Name Role Phone Lindsay Abdi MD Primary Care Provider [phone] Encounter Details Date Type Department Care Team (Late Contact Info) Description 04/22/2024 Telephone [facility] - Ophthalmology [address] [place] [address] [phone] Connie Knapp MD [address] [place] [phone] Social History Tobacco Use Types Packs/Day Years [...] Upcoming Encounters Date Type Department Care Team ([facility] Contact Info) Description 08/15/2024 9:30 AM CDT Office Visit [facility] - Ophthalmology [address] [place] [address] [phone] Connie Knapp MD [address] [place] [phone] documented as of this encounter Visit Diagnoses Not on filedocumented in this encounter Care Teams Bath Design Sales Consultant Relationship Specialty Start Date End Date Lindsay Abdi MD [address] [place] [address] PCP - General Family Medicine 02/08/24 documented as of this encounter
[2024-08-12 16:24] VITALS: BP 130/68; PULSE 98; RESP 16; TEMP 36.4; O2SAT 99
--- NOTE | 2024-08-12 16:24 | ECG_ITS ---
Test Date: 2024-08-12 17:14:28 Measurements Intervals [place] Rate: 99 P: 71 OH: 145 QRS: 79 QRSD: 96 T: 61 QT: 331 QTc: 425 Interpretive Statements SINUS RHYTHM NORMAL ECG No previous ECG available for comparison Electronically Signed On 08-12-2024 18:38:56 CDT by Km Briggs D.O.
--- NOTE | 2024-08-12 16:26 | ED.LOWEXIN ---
HPI - Extremity Injury (Lower) General Chief Complaint: Extremity Injury, Lower <Charleen Philippe BOX OFFICE AGENT - Last Filed: 08/12/24 16:28> Stated Complaint: Diabetic ulcer right foot <Charleen Philippe APRN - Last Filed: 08/12/24 16:28> Time Seen by Provider: 08/12/24 16:20 <Charleen Philippe BOX OFFICE AGENT - Last Filed: 08/12/24 16:28> Focused HPI: Patient is a 29-year-old male who presents to the ER with complaints of a right foot ulcer. He endorses a history of type 1 diabetes. Patient reports he was here 2 weeks ago and his wound not indicate signs of infection so he was discharged home. He reports he is cared for the wound as instructed here in the ER but it has continued to get worse. Patient reports this morning he woke up and his right lower extremity was swollen. He denies any recent fevers, calf pain, or injury to the right foot. GENERAL: Well-appearing, well-nourished, and in no acute distress. HEAD: Normocephalic, atraumatic. CHEST: Clear to auscultation. ?No respiratory distress. HEART: Regular rate and rhythm.? NEURO: ?Alert and oriented x3. Patient screened in triage and initial orders placed.? ?Additional care and disposition to be based upon?diagnostic testing and treatment. <Charleen Philippe, BOX OFFICE AGENT - Last Filed: 08/12/24 16:28> Related Data Allergies/Adverse Reactions: Allergies Allergy/AdvReac Type Severity Reaction Status Date / Time No Known Allergies Allergy Verified 08/12/24 16:17 <Charleen Philippe BOX OFFICE AGENT - Last Filed: 08/12/24 16:28> PMFSH Past Medical History Medical History: Medical History (Updated 08/12/24 @ 18:16 by Reno Castillo MD) Hyperglycemia <Charleen Philippe APRN - Last Filed: 08/12/24 16:28> Social History Social History: Social History Smoking status: Current every day smoker Tobacco type: e-cigarettes/vaping Alcohol intake: current Drinks per week: 2 Substance use: current Substance use type: marijuana Last use: 01/23/23 Lack of Transportation: YES Lack of Food: Often True Current Housing: I Have Housing Concerned About Future Housing: No Difficulty Paying Gas/Electric Bills: YES Difficulty Paying for Meds: No Currently Unemployed: No Education: High School Diploma/GED Difficulty w/ Childcare or Family Care: No Spiritual care concerns: No <Charleen Philippe APRN - Last Filed: 08/12/24 16:28> Exam Narrative: APPEARANCE: No apparent distress. Head: atraumatic. EYES: EOMI, NOSE: Atraumatic NECK: Trachea midline RESPIRATORY: No increased rate of breathing CARDIOVASCULAR: RRR, ABDOMINAL: Non-distended MUSCULOSKELETAl: No obvious deformities NEURO: Alert. Moving 4/4 extremities SKIN:: The right lower extremity is edematous, erythematous and foul smelling. There is a large diabetic ulcer on the plantar portion of his foot. No purulent drainage. No crepitus. Pulses are intact. PSYCHIATRIC: Normal affect <Reno Castillo MD - Last Filed: 08/12/24 18:16> Course Vital Signs Vital signs: Vital Signs Temperature 97.6 F 08/12/24 16:24 Pulse Rate 98 08/12/24 16:24 Respiratory Rate 16 08/12/24 16:24 Blood Pressure 130/68 08/12/24 16:24 Pulse Oximetry 99 08/12/24 16:24 Temperature 97.6 F 08/12/24 16:24 Pulse Rate 98 08/12/24 16:24 Respiratory Rate 16 08/12/24 16:24 Blood Pressure 130/68 08/12/24 16:24 Pulse Oximetry 99 08/12/24 16:24 <Charleen Philippe BOX OFFICE AGENT - Last Filed: 08/12/24 16:28> Vital Signs Temperature 97.6 F 08/12/24 16:24 Pulse Rate 98 08/12/24 16:24 Respiratory Rate 16 08/12/24 16:24 Blood Pressure 130/68 08/12/24 16:24 Pulse Oximetry 99 08/12/24 16:24 Temperature 97.6 F 08/12/24 16:24 Pulse Rate 98 08/12/24 16:24 Respiratory Rate 16 08/12/24 16:24 Blood Pressure 130/68 08/12/24 16:24 Pulse Oximetry 99 08/12/24 16:24 <Reno Castillo MD - Last Filed: 08/12/24 18:16> MDM - Extremity Injury (Lower) MDM Narrative Medical decision making narrative: -Course: 29-year-old poorly controlled diabetic presenting for an infected foot ulcer. Foot is foul smelling, erythematous and edematous. White count of 13.9. Patient started on antibiotics per the infected diabetic foot ulcer order set. Patient given 30 cc/kilogram bolus. Glucose elevated at 692 without signs of DKA. Patient given a 10 units of insulin. Patient will be admitted the hospital for further management his diabetic foot ulcer. 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 Metabolic panel showed hyponatremia hypochloremia. Glucose elevated at 692 without ketosis. Lactic 1.9 CRP 2.5 X-rays of the foot and ankle without osseous findings Independent EKG interpretation: Rhythm [sinus], Rate [99], Colby -[normal], KS -[normal], QRS [narrow], QTC [normal], T waves -[negative for concerning inversions], ST Segments - [Negative for concerning elevations] Final interpretations: [Normal Sinus Rhythm] <Reno Castillo MD - Last Filed: 08/12/24 18:16> Lab Data Result diagrams: 08/12/24 17:00 08/12/24 17:00 <Charleen Philippe APRN - Last Filed: 08/12/24 16:28> Labs: Lab Results 08/12/24 Range/Units 17:00 WBC 13.9 H (4.5-10.0) K/mm3 RBC 3.77 L (4.6-6.20) M/mm3 Hgb 11.1 L (14.0-18.0) g/dL Hct 32.5 L (42.0-52.0) % MCV 86.2 (80-100) fl MCH 29.4 (26-34) pg MCHC 34.2 (32-36) g/dl RDW 12.3 (11.5-14.5) % Plt Count 276 (150-375) k/mm3 MPV 9.3 (7.4-10.4) fl Immature Gran % (Auto) 0.4 (0-0.5) % Neut % (Auto) 87.0 H (45.5-73.1) % Lymph % (Auto) 6.0 L (18.3-44.2) % Hoke % (Auto) 6.4 (2.6-8.5) % Eos % (Auto) 0.1 (0-4.4) % Baso % (Auto) 0.1 L (0.2-1.2) % Lymph # (Auto) 0.83 L (0.9-3.2) K/mm3 Hoke # (Auto) 0.9 H (0.1-0.6) K/mm3 Eos # (Auto) 0.0 (0-0.3) K/mm3 Baso # (Auto) 0.0 (0.0-0.1) K/mm3 Abs Immat Gran (auto) 0.06 H (0.00-0.031) K/mm3 Absolute Neuts (auto) 12.1 H (1.3-6.7) K/mm3 Absolute Nucleated RBC 0.000 (0.0-0.012) K/mm3 Nucleated RBC % 0.0 (0.0-0.2) % PT 14.7 (11.1-14.7) Seconds INR 1.1 APTT 32.0 (22.3-36.8) Seconds Sodium 122 L (137-145) mmol/L Potassium 4.5 (3.4-5.0) mmol/L Chloride 89 L (98-107) mmol/L Carbon Dioxide 23 (22-30) mmol/L Anion Gap 10 (4-12) mmol/L BUN 19 (9-20) mg/dL Creatinine 1.16 (0.7-1.3) mg/dL Estim Creat Clear Calc 72 ml/min Estimated GFR > 60 (59 - ) Glucose 692 H* (65-110) mg/dL Hemoglobin A1c Pending Lactic Acid 1.9 (0.7-2.0) mmol/L Calcium 7.8 L (8.4-10.2) mg/dL Total Bilirubin 1.1 (0.2-1.3) mg/dL AST 43 (17-59) U/L ALT 39 (6-50) U/L Alkaline Phosphatase 256 H (38-126) U/L C-Reactive Protein 2.5 H (<1.0) mg/dL Total Protein 7.0 (6.3-8.2) g/dL Albumin 3.4 L (3.5-5.1) g/dL <Charleen Philippe, BOX OFFICE AGENT - Last Filed: 08/12/24 16:28> Lab Results 08/12/24 Range/Units 17:00 WBC 13.9 H (4.5-10.0) K/mm3 RBC 3.77 L (4.6-6.20) M/mm3 Hgb 11.1 L (14.0-18.0) g/dL Hct 32.5 L (42.0-52.0) % MCV 86.2 (80-100) fl MCH 29.4 (26-34) pg MCHC 34.2 (32-36) g/dl RDW 12.3 (11.5-14.5) % Plt Count 276 (150-375) k/mm3 MPV 9.3 (7.4-10.4) fl Immature Gran % (Auto) 0.4 (0-0.5) % Neut % (Auto) 87.0 H (45.5-73.1) % Lymph % (Auto) 6.0 L (18.3-44.2) % Hoke % (Auto) 6.4 (2.6-8.5) % Eos % (Auto) 0.1 (0-4.4) % Baso % (Auto) 0.1 L (0.2-1.2) % Lymph # (Auto) 0.83 L (0.9-3.2) K/mm3 Hoke # (Auto) 0.9 H (0.1-0.6) K/mm3 Eos # (Auto) 0.0 (0-0.3) K/mm3 Baso # (Auto) 0.0 (0.0-0.1) K/mm3 Abs Immat Gran (auto) 0.06 H (0.00-0.031) K/mm3 Absolute Neuts (auto) 12.1 H (1.3-6.7) K/mm3 Absolute Nucleated RBC 0.000 (0.0-0.012) K/mm3 Nucleated RBC % 0.0 (0.0-0.2) % PT 14.7 (11.1-14.7) Seconds INR 1.1 APTT 32.0 (22.3-36.8) Seconds Sodium 122 L (137-145) mmol/L Potassium 4.5 (3.4-5.0) mmol/L Chloride 89 L (98-107) mmol/L Carbon Dioxide 23 (22-30) mmol/L Anion Gap 10 (4-12) mmol/L BUN 19 (9-20) mg/dL Creatinine 1.16 (0.7-1.3) mg/dL Estim Creat Clear Calc 72 ml/min Estimated GFR > 60 (59 - ) Glucose 692 H* (65-110) mg/dL Hemoglobin A1c Pending Lactic Acid 1.9 (0.7-2.0) mmol/L Calcium 7.8 L (8.4-10.2) mg/dL Total Bilirubin 1.1 (0.2-1.3) mg/dL AST 43 (17-59) U/L ALT 39 (6-50) U/L Alkaline Phosphatase 256 H (38-126) U/L C-Reactive Protein 2.5 H (<1.0) mg/dL Total Protein 7.0 (6.3-8.2) g/dL Albumin 3.4 L (3.5-5.1) g/dL <Reno Castillo MD - Last Filed: 08/12/24 18:16> Discharge Plan Discharge Clinical Impression: Infected ulcer of skin, Poorly controlled diabetes mellitus <Charleen Philippe APRN - Last Filed: 08/12/24 16:28> Patient Disposition: Home <Charleen Philippe APRN - Last Filed: 08/12/24 16:28> Condition: Stable <Charleen Philippe APRN - Last Filed: 08/12/24 16:28> Instructions: Antibiotic Form <Charleen Philippe APRN - Last Filed: 08/12/24 16:28> Patient Language: Chadian <Charleen Philippe APRN - Last Filed: 08/12/24 16:28> Prescriptions: No Action insulin glargine 100 unit/mL (3 mL) insulin pen 7 unit subcut HS Qty: 15 0RF (DME) OneTouch Verio test strips Strip Qty: 1 0RF Rx Instructions: May substitute to in-stock and/or covered by insurance strips. Use As Directed (DME) pen needle, diabetic [BD Ultra-Fine Joy Pen Needle] 32 gauge x 5/32 needle Qty: 1 0RF Rx Instructions: May substitute to meet patient needs. Use As Directed (DME) lancets [OneTouch Delica Plus Lancet] 30 gauge misc Qty: 1 0RF Rx Instructions: May substitute to in-stock and/or covered by insurance lancets. Use As Directed <Charleen Philippe APRN - Last Filed: 08/12/24 16:28> Follow-up/Referrals: Lindsay Abdi MD [Primary Care Provider] - <Charleen Philippe APRN - Last Filed: 08/12/24 16:28>
[2024-08-12 17:07] LABS: Basophils Percent Auto 0.1 % (0.2-1.2); Eosinophils Percent Auto 0.1 % (0-4.4); Hematocrit 32.5 % (42.0-52.0); Hemoglobin 11.1 g/dL (14.0-18.0); Immature Granulocyte Absolute 0.06 K/mm3 (0.00-0.031); Immature Granulocyte Percent A 0.4 % (0-0.5); Lymphocytes Absolute Auto 0.83 K/mm3 (0.9-3.2); Mean Corpuscular HGB Conc 34.2 g/dl (32-36); Mean Corpuscular Hemoglobin 29.4 pg (26-34); Mean Corpuscular Volume 86.2 fl (80-100); Mean Platelet Volume 9.3 fl (7.4-10.4); Monocytes Absolute Auto 0.9 K/mm3 (0.1-0.6); Monocytes Percent Auto 6.4 % (2.6-8.5); Neutrophils Absolute Auto 12.1 K/mm3 (1.3-6.7); Platelet Count Result 276 k/mm3 (150-375); Red Blood Count 3.77 M/mm3 (4.6-6.20); Red Cell Distribution Width 12.3 % (11.5-14.5); White Blood Count 13.9 K/mm3 (4.5-10.0)
[2024-08-12 17:17] LABS: INR 1.1; Prothrombin Time 14.7 Seconds (11.1-14.7)
--- OUTSIDE RECORDS SUMMARY | 2024-08-12 17:17 | XMS_ITS | Encounter Summary ---
Author Organization [facility] Address [address] [place] [address] Care Team Providers Care Tar Chaser Name Role Phone Lindsay Abdi MD Primary Care Provider [phone] Encounter Details Date Type Department Care Team (Late Contact Info) Description 04/22/2024 Telephone [facility] - Ophthalmology [address] [place] [address] [phone] Connie Knapp MD [address] [place] [phone] Social History Tobacco Use Types Packs/Day Years [...] Upcoming Encounters Date Type Department Care Team ([facility] Contact Info) Description 08/15/2024 9:30 AM CDT Office Visit [facility] - Ophthalmology [address] [place] [address] [phone] Connie Knapp MD [address] [place] [phone] documented as of this encounter Visit Diagnoses Not on filedocumented in this encounter Care Teams Tar Chaser Relationship Specialty Start Date End Date Lindsay Abdi MD [address] [place] [address] PCP - General Family Medicine 02/08/24 documented as of this encounter
--- OUTSIDE RECORDS SUMMARY | 2024-08-12 17:17 | XMS_ITS | Clinical Summary ---
Author Organization [facility] Address [address] [place] [address] Care Team Providers Care Director Of Student Affairs Name Role Phone Lindsay Abdi MD Primary Care Provider [phone] Source Comments [facility],non-owned Affiliates and Associated Physician Practices is amultiple site organization consisting of ambulatory clinics and hospital sitesin [place], [place], [place] and [place]. This disclosure is being madepursuant to the Care Everywhere program and may not contain all information available regarding this patient. Last updated 18.[facility] Allergies No known active allergies Medications * [...] Department Care Team Description 06/14/2024 8:20 AM HIM ASSISTANT Clinical Support [facility] - Ophthalmology [address] [place] [address] [phone] Connie Knapp MD Postoperative eye state (Primary Dx) 06/14/2024 8:00 AM HIM ASSISTANT Office Visit [facility] - Ophthalmology [address] [place] [address] [phone] Connie Knapp MD Postoperative eye state (Primary Dx); Proliferative diabetic retinopathy of left eye associated with type 1 diabetes mellitus, unspecified proliferative retinopathy type 05/23/2024 1:20 PM HIM ASSISTANT Office Visit [facility] - Endocrinology [address] [place] [phone] Lotus Givens MD Poor control type I diabetes mellitus (Primary Dx); Right retinal detachment; Right eye affected by proliferative diabetic retinopathy with traction retinal detachment involving macula, associated with type 1 diabetes mellitus 05/23/2024 Travel 05/20/2024 Telephone [facility] - Ophthalmology [address] [place] [phone] Kurt Teague MD Appointment 05/16/2024 2:45 PM HIM ASSISTANT Office Visit [facility] - Ophthalmology [address] [place] [phone] Connie Knapp MD Postoperative eye state (Primary Dx); Proliferative diabetic retinopathy of left eye associated with type 1 diabetes mellitus, unspecified proliferative retinopathy type; Ocular hypertension of right eye 05/16/2024 2:40 PM HIM ASSISTANT Clinical Support [facility] - Ophthalmology [address] [place] [phone] Connie Knapp MD Epiretinal membrane (ERM), bilateral [...] Comments Blood Pressure 142/88 05/23/2024 1:23 PM HIM ASSISTANT Pulse 83 05/23/2024 1:23 PM HIM ASSISTANT Temperature 36.1 C (97 F) 03/16/2024 3:20 PM HIM ASSISTANT Respiratory Rate 13 03/16/2024 4:00 PM HIM ASSISTANT Oxygen Saturation 98% 05/23/2024 1:23 PM HIM ASSISTANT Inhaled Oxygen Concentration - - Weight 61.2 kg (135 lb) 05/23/2024 1:23 PM HIM ASSISTANT Height 165.1 cm (5' 5 ) 05/23/2024 1:23 PM HIM ASSISTANT Body Mass Index 22.47 05/23/2024 1:23 PM HIM ASSISTANT Plan of Treatment Upcoming Encounters Date Type Department Care Team (Late st Contact Info) Description 08/15/2024 9:30 AM CDT Office Visit [facility] - Ophthalmology [address] [place] [phone] Connie Knapp MD [address] [place] [phone] Health Maintenance Due Date Last Done Comments [...] AVASTIN LEFT EYE Routine 06/14/2024 1:23 PM HIM ASSISTANT Proliferative diabetic retinopathy of left eye associated with type 1 diabetes mellitus, unspecified proliferative retinopathy type RETINAL ANALYSIS OCT Routine 06/14/2024 8:16 AM HIM ASSISTANT Postoperative eye state HEMOGLOBIN A1C - POINT OF CARE (AMB) [facility] Routine 05/23/2024 1:32 PM HIM ASSISTANT Poor control type I diabetes mellitus ADMINISTRATION AVASTIN LEFT EYE Routine 05/19/2024 9:02 AM HIM ASSISTANT Proliferative diabetic retinopathy of left eye associated with type 1 diabetes mellitus, unspecified proliferative retinopathy type RETINAL ANALYSIS OCT Routine 05/16/2024 2:39 PM HIM ASSISTANT Epiretinal membrane (ERM), bilateral from Last 3 Months Results * ADMINISTRATION AVASTIN LEFT EYE (06/14/2024 1:23 PM HIM ASSISTANT) Anatomical Region Laterality Modality Head Other Narrative 06/27/2024 2:30 PM HIM ASSISTANT Intravitreal Injection Note Procedure: Intravitreal injections of Avastin (Bevacizumab), left eye Route of administration: Intravitreal Dosage: 1.25 mg (Avastin) Amount administered: 0.05 mL Lot number: [id number] Expiration date: 09/26/2024 Diagnosis: Postoperative eye state [...] * RETINAL ANALYSIS OCT (06/14/2024 8:16 AM HIM ASSISTANT) Anatomical Region Laterality Modality Head External-Camera Photography Narrative 06/27/2024 2:29 PM HIM ASSISTANT Images from the original result were not [...] OF CARE (AMB) [facility] (05/23/2024 1:32 PM HIM ASSISTANT) Hemoglobin A1c POCT 11.6 % [address] BLOOD SPECIMEN / Unknown 05/23/2024 1:32 PM HIM ASSISTANT Lotus Givens MD LAB - POINT OF CARE ORDERABLES [address], [facility] [address] [place] [phone], [facility] [phone] * ADMINISTRATION AVASTIN LEFT EYE (05/19/2024 9:02 AM HIM ASSISTANT) Anatomical Region Laterality Modality Head Other Narrative 05/19/2024 9:02 AM HIM ASSISTANT Intravitreal Injection Note Procedure: Intravitreal injections of Avastin (Bevacizumab), left eye Route of administration: Intravitreal Dosage: 1.25 mg (Avastin) Amount administered: 0.05 mL Lot number: [id number] Expiration date: 08/04/24 Diagnosis: Postoperative eye state [...] * RETINAL ANALYSIS OCT (05/16/2024 2:39 PM HIM ASSISTANT) Anatomical Region Laterality Modality Head External-Camera Photography Narrative 05/19/2024 9:03 AM HIM ASSISTANT Macula OCT: OD: SRF improving, now non central, trace ERM, DRIL and thinning OS: Trace ERM, DRIL Connie Knapp MD OPHTHALMOLOGY [facility] ED ORD W PACS from Last 3 Months Care Teams Director Of Student Affairs Relationship Specialty Start Date End Date Lindsay Abdi MD [address] [place] [address] PCP - General Family Medicine 02/08/24
[2024-08-12 17:19] LABS: Lactic Acid Reflex 1.9 mmol/L (0.7-2.0)
[2024-08-12 17:38] LABS: Alanine Aminotransferase 39 U/L (6-50); Albumin Level 3.4 g/dL (3.5-5.1); Alkaline Phosphatase 256 U/L (38-126); Anion Gap 10 mmol/L (4-12); Aspartate Amino Transferase 43 U/L (17-59); Bilirubin,Total 1.1 mg/dL (0.2-1.3); Blood Urea Nitrogen 19 mg/dL (9-20); CRP 2.5 mg/dL (<1.0); Calcium 7.8 mg/dL (8.4-10.2); Carbon Dioxide 23 mmol/L (22-30); Chloride 89 mmol/L (98-107); Estimated CRCL calculation 72 ml/min; Estimated Glomerular Filt Rate > 60; Glucose 692 mg/dL (65-110); Potassium 4.5 mmol/L (3.4-5.0); Sodium 122 mmol/L (137-145)
[2024-08-12 17:50] LABS: Hemoglobin A1C 10.9 % (<5.7)
[2024-08-12] MEDS: INSULIN HUMAN REGULAR (*BKC) 100 UNITS/ML 10 UNITS IV PUSH (18:10)
[2024-08-12] MEDS: LACTATED RINGERS 1,000 ML 999 ML IV CONT ×2 (18:33→18:34)
[2024-08-12] MEDS: CEFEPIME 2 GM/NS 50 ML 2 GM/50 ML BAG IVPB (18:35)
[2024-08-12] MEDS: LACTATED RINGERS 200 ML 999 ML IV CONT (18:39)
[2024-08-12] MEDS: metroNIDAZOLE 500 MG/ISO 100ML 500 MG/100 ML BAG 100 MG IVPB (18:45)
--- NOTE | 2024-08-12 18:46 | P.HP_ITS ---
H&P: HPI History of Present Illness Date/Time: 08/12/24 18:46 Chief Complaint: Foot/Ankle Swelling Narrative: 29 y/o M with PMH of diabetes (presumed type 2) presents here with a right foot wound. The patient presents here from home on 08/12 for further evaluation of right foot/ankle swelling. He was initially seen on 07/29/2024 with complaints of a wound to his right foot. At that time he reported it had been present for only a few days to his knowledge. At that time he was evaluated by the esthetician permanent makeup artist. The wound was debrided and he was discharged home with recommendation to follow-up with podiatry. He reports since this visit he has followed his wound care instructions, however the wound has continued to worsen. He has not followed up with podiatry. He elected to seek care today because when he woke he noted that his right lower extremity was significantly more swollen. He denies associated fever, chills, body aches, calf pain, or trauma to the right foot or leg. History of type 1 diabetes in his family - mom and maternal uncle. He has an appt this summer to establish care with an home service consultant. Initial VS at presentation: 97.6? F, HR 98, RR 16, 130/60, and 99% on RA. ED workup showed: WBC 13.9 (increased compared to previous ED visit), hemoglobin 11.1, normal coags, sodium 122 (corrected to 131), glucose 692, creatinine 1.16 and GFR >60, A1c 10.9%, lactic 1.9, CRP 2.5. Foot XR showed no acute osseous abnormality of the right foot. Ankle XR showed no definite acute osseous abnormalities right ankle, small bony fragment near the fibular head, soft tissue swelling over the medial and lateral malleoli. Review of Systems Review of Systems: All systems reviewed & are unremarkable except as noted in HPI and below PMFSH Past Medical History Medical History Diabetes Social History Social History Smoking status: Current every day smoker Tobacco type: e-cigarettes/vaping Second hand tobacco smoke exposure: No Alcohol intake: current Drinks per week: 1 Substance use: current Substance use type: marijuana Other substance usage details: Uses alcohol and substances rarely/socially Last use: 01/23/23 Do You Feel Safe in your Home?: Yes Lack of Transportation: No Lack of Food: Sometimes True Current Housing: I Have Housing Concerned About Future Housing: No Difficulty Paying Gas/Electric Bills: No Difficulty Paying for Meds: No Currently Unemployed: No Education: Decline to Answer Difficulty w/ Childcare or Family Care: No Spiritual care concerns: No Meds Home Medications and Allergies Home Medications ?Medication ?Instructions ?Recorded ?Confirmed ?Type insulin glargine 100 unit/mL (3 7 unit (0.07 mL) subcut HS #15 mL 02/24/23 08/12/24 Rx mL) subcutaneous pen Allergies Allergy/AdvReac Type Severity Reaction Status Date / Time No Known Allergies Allergy Verified 08/12/24 16:17 Vital Signs Vital Signs - 24 hr 08/12/24 16:24 Temperature 97.6 F Pulse Rate 98 Respiratory Rate 16 Blood Pressure 130/68 Pulse Oximetry 99 Exam Const: General: comfortable and no acute distress Other: , male, nontoxic appearance HENMT: Face/Nose/Sinus: Normal nares present Mouth: Yes moist mucous membranes Eyes: General: appearance normal, both eyes and all related structures Sclera: sclerae normal Pupils: Equal, round and reactive pupils present EOM: EOMs intact bilaterally Resp: Effort & Inspection: normal respiratory effort Auscultation: clear to auscultation bilaterally Cardio: Rate: regular rate Rhythm: regular rhythm Other: S1-S2 present without murmur, rub, ectopy Skin: General skin exam: normal color and no rashes or lesions noted Other: 5 x 3 cm ulceration to the plantar aspec t of his right foot, central wound long/straight. +foul odor. +erythema, extension up right leg to anterior right warren. Neuro: Speech: normal speech Motor exam (neuro): 5/5 motor strength present throughout Sensory Exam: normal sensation Other: A&O x4 Extrem: General: normal exam except as noted Psych: Mental Status: mental status grossly normal Affect: normal affect Other: Good insight and judgment, pleasant H&P: Results Labs Labs: Short CBC 08/12/24 Range/Units 17:00 WBC 13.9 H (4.5-10.0) K/mm3 Hgb 11.1 L (14.0-18.0) g/dL Hct 32.5 L (42.0-52.0) % Plt Count 276 (150-375) k/mm3 BMP 08/12/24 17:00 Sodium 122 L Potassium 4.5 Chloride 89 L Carbon Dioxide 23 BUN 19 Creatinine 1.16 Glucose 692 H* Calcium 7.8 L Liver Function 08/12/24 Range/Units 17:00 Total Bilirubin 1.1 (0.2-1.3) mg/dL AST 43 (17-59) U/L ALT 39 (6-50) U/L Alkaline Phosphatase 256 H (38-126) U/L Albumin 3.4 L (3.5-5.1) g/dL Assessment and Plan Assessment and plan (1) Infected ulcer of skin: Qualifiers: Non-pressure ulcer stage: unspecified non-pressure ulcer stage Qualified Code(s): L98.499 - Non-pressure chronic ulcer of skin of other sites with unspecified severity; L08.9 - Local infection of the skin and subcutaneous tissue, unspecified Code(s): L98.499 - Non-pressure chronic ulcer of skin of other sites with unspecified severity; L08.9 - Local infection of the skin and subcutaneous tissue, unspecified Status: Acute Assessment and Plan: Foot XR (R) showed no acute osseous abnormality. Ankle XR (R) showed no definite acute osseous abnormality of the right ankle, small bony fragment near the fibular head, soft tissue swelling over the medial and lateral malleoli. Started on cefepime, vancomycin, and Flagyl on 08/12. Analgesics and antipyretics p.r.n.. Wound culture ordered. 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 Initially believed to be type 1, however he was told 10+ years ago he was hyperglycemic when he attempted to join the . He did not follow-up for this, unclear if that episode of hyperglycemia was transient or if he has been chronically elevated since. No history of DKA. Antibody testing done in January of 2023 - Zinc transporter antibody, insulin autoantibody, GAD65 antibody negative. Also reported in 2022 that he had developed lower extremity numbness suggesting he has developed neuropathy due to long-standing uncontrolled diabetes. Will proceed with treatment based off type 2 diabetes. Initial glucose 692, no anion gap. Given regular insulin 10 units IV push, now 416. Glucose checks Q2 until less than 350 -> ACHS. Hypoglycemia protocol in place. Moderate dose sliding scale in place based off BMI, TIDWM and HS. Continue home meds: Lantus 7 units HS. Dietitian and green building engineer consulted for re-education, discussed with patient and he does not want to speak with ancillary staff (d/c'd orders). Reports some noncompliance with his DM medications, estimates he takes his meds 5 out of 7 days. PCP currently prescribing his DM meds. Appt to establish care with an home service consultant this summer in October or November. Plan Diet: Diabetic GI Prophylaxis: Not currently indicated DVT Prophylaxis: Lovenox SQ Lines: Peripheral Code Status: Full code Quality VTE Prophylaxis VTE prophylaxis: pharmacologic ordered Hospitalist [facility] Advance Care Plan I have confirmed that the patient's Advanced Care Plan is present, code status is documented, or surrogate decision maker is listed in patient medical record.: Yes Medication Reconciliation I have utilized all available resources to obtain, update and review the patients current medications (includes all prescriptions, OTC, herbals, cannabis, and nutritional supplements).: Yes
[2024-08-12 18:48] LABS: Glucose Point of Care 416 mg/dl (65-105)
[2024-08-12 18:51] VITALS: BP 143/87; PULSE 102; RESP 16; O2SAT 100
[2024-08-12 19:15] VITALS: BP 131/76; PULSE 103; RESP 17; TEMP 37; O2SAT 100; BMI 24.0
--- NOTE | 2024-08-12 19:47 | ADMGEN ---
This patient, Catracho Deras, was admitted to 2 Medical Room 254-01. Patient/family oriented to hospital policies and general routines including ID bracelet, bed and alarms, visiting hours, pain management, procedures, bathroom and other care routines, personal items, smoking policy, room service/diet, and visiting hours. Information on how to activate the Rapid Response Team has been discussed. Patient/Family are encouraged to report perceived risks to care and to ask questions if they do not understand what they are told or what they should do.
[2024-08-12] MEDS: INSULIN ASPART (*BKC) 100 UNITS/ML SUB-Q (20:34)
[2024-08-12] MEDS: VANCOMYCIN 1,750 MG/NS 500 ML 1,750 MG/500 ML BAG 250 MG IVPB (20:34)
[2024-08-12 20:48] LABS: Glucose Point of Care 224 mg/dl (65-105)
[2024-08-12] MEDS: INSULIN GLARGINE (*BKC) 100 UNITS/ML 7 UNITS SUB-Q (23:20)
[2024-08-13] VITALS (10 sets, daily range): BP systolic 126–141; BP diastolic 58–81; PULSE 92–103; RESP 16–18; TEMP 36.7–39.1; O2SAT 96–100
[2024-08-13] MEDS: ACETAMINOPHEN 325 MG TABLET 650 MG PO ×2 (04:36→21:08)
[2024-08-13] MEDS: CEFEPIME 2 GM/NS 50 ML 2 GM/50 ML BAG IVPB ×2 (05:11→17:29)
[2024-08-13] MEDS: metroNIDAZOLE 500 MG/ISO 100ML 500 MG/100 ML BAG 100 MG IVPB ×3 (06:25→22:59)
[2024-08-13 06:37] LABS: Basophils Percent Auto 0.2 % (0.2-1.2); Eosinophils Percent Auto 0.3 % (0-4.4); Hematocrit 27.2 % (42.0-52.0); Hemoglobin 9.2 g/dL (14.0-18.0); Immature Granulocyte Absolute 0.04 K/mm3 (0.00-0.031); Immature Granulocyte Percent A 0.3 % (0-0.5); Lymphocytes Absolute Auto 1.33 K/mm3 (0.9-3.2); Lymphocytes Percent Auto 11.6 % (18.3-44.2); Mean Corpuscular HGB Conc 33.8 g/dl (32-36); Mean Corpuscular Volume 85.8 fl (80-100); Mean Platelet Volume 9.4 fl (7.4-10.4); Monocytes Absolute Auto 0.8 K/mm3 (0.1-0.6); Neutrophils Absolute Auto 9.3 K/mm3 (1.3-6.7); Neutrophils Percent Auto 80.6 % (45.5-73.1); Platelet Count Result 219 k/mm3 (150-375); Red Blood Count 3.17 M/mm3 (4.6-6.20); Red Cell Distribution Width 12.1 % (11.5-14.5); White Blood Count 11.5 K/mm3 (4.5-10.0)
[2024-08-13 06:46] LABS: Anion Gap 7 mmol/L (4-12); Blood Urea Nitrogen 17 mg/dL (9-20); Calcium 7.5 mg/dL (8.4-10.2); Carbon Dioxide 23 mmol/L (22-30); Chloride 99 mmol/L (98-107); Estimated CRCL calculation 82 ml/min; Estimated Glomerular Filt Rate > 60; Glucose 161 mg/dL (65-110); Potassium 4.1 mmol/L (3.4-5.0); Sodium 129 mmol/L (137-145)
[2024-08-13 08:35] LABS: Glucose Point of Care 151 mg/dl (65-105)
[2024-08-13] MEDS: ENOXAPARIN 40 MG/0.4 ML SYRINGE SUB-Q (08:59)
[2024-08-13] MEDS: VANCOMYCIN 1,250 MG/NS 250 ML 1,250 MG/250 ML BAG 166.67 MG IVPB (08:59)
--- NOTE | 2024-08-13 12:02 | P.PNIM_ITS ---
Progress Note: A&P Assessment and Plan (1) Infected ulcer of skin: Qualifiers: Non-pressure ulcer stage: unspecified non-pressure ulcer stage Qualified Code(s): L98.499 - Non-pressure chronic ulcer of skin of other sites with unspecified severity; L08.9 - Local infection of the skin and subcutaneous tissue, unspecified Code(s): L98.499 - Non-pressure chronic ulcer of skin of other sites with unspecified severity; L08.9 - Local infection of the skin and subcutaneous tissue, unspecified Status: Acute Assessment and Plan: Patient presents with right foot wound and has developed sepsis symptoms. Lactic normal but with elevated WBC, fever and tachycardia. Rt Foot XR showed no acute osseous abnormality. Rt Ankle XR showed no definite acute osseous abnormality of the right ankle but with small bony fragment near the fibular head. Soft tissue swelling over the medial and lateral malleoli. Started on cefepime, vancomycin, and Flagyl on 08/12. BCx NGTD WCx pending. Analgesics and antipyretics p.r.n.. Continue IV abx. General surgery consult for possible debridement. Consider foot MR to exclude osteomyelitis. Check LE venous doppler to exclude DVT. Sepsis symptoms most likely from foot infection but will check viral resp swab and CXR to exclude occult PNA. CXR showing diffuse ground glass and airspace opacities in the right lung concerning for PNA. COVID testing pending. Add Doxy. Check MRSA nasal swab (2) Sepsis: Code(s): A41.9 - Sepsis, unspecified organism Status: Acute Assessment and Plan: As above (3) Diabetes: Qualifiers: Diabetes mellitus complication detail: with foot ulcer Diabetes mellitus complication status: with skin complications Diabetes mellitus prison insulin use: without intermediate designer use Diabetes mellitus type: type 2 Qualified Code(s): E11.621 - Type 2 diabetes mellitus with foot ulcer; L97.509 - Non-pressure chronic ulcer of other part of unspecified foot with unspecified severity Code(s): E11.9 - Type 2 diabetes mellitus without complications Status: Acute Assessment and Plan: Initially unclear if DM Type 1 vs 2. No history of DKA. Antibody testing done in January of 2023 was negative. Has developed neuropathy due to long-standing uncontrolled diabetes. Initial glucose 692, no anion gap. He is noncompliant with Lantus He was given regular insulin 10 units IV push with improvement. Lantus resumed The patient's blood glucose was reviewed on 08/13 Glucose better controlled. Continue AccuCheks covering with sliding scale. Hypoglycemia protocol available as needed. Continue to monitor. Patient declines Dietitian and retail coverage merchandiser lead consults (4) Anemia: Code(s): D64.9 - Anemia, unspecified Status: Acute Assessment and Plan: Hgb 11.1 on admission but dropped to 9.2 today. Possibly related to IV fluids No obvious acute blood loss. Proceed with anemia w/u. Plan DVT Prophylaxis: Lovenox SQ Code Status: Full code Subjective Date/time seen: 08/13/24 12:02 Interval history: 29yo male with diabetes (presumed type 2) who presents here with a right foot wound. Slept off and on last night. Foot is numb so no pain. Had fever and diaphoresis last night. No obvious blood loss. Slight nonproductive cough but no urinary symptoms. He does not use Lantus regularly. Exam Narrative: Tm 102.4 101.1 126/68 103 17 96% ra Gen - NARD Chest - right base carckles o/w clear. CV - RRR S1/S2 Abd - Soft, NT/ND, Positive BS Ext - right femoral tender, enlarged LN. RLE edematous Neuro - Alert and oriented. Nonfocal exam. Psych - Nml mood and affect Skin - 5 x 3 cm ulceration to the plantar aspect of his right foot with central dried eschar and a purulent fluid bulla distal to this. Erythema to right mid [place] and dorsal foot. Dried eschar right mid warren. Objective Data Vital Signs Vital Signs: Vital Signs - 24 hr 08/12/24 16:24 08/12/24 18:51 08/12/24 19:15 Temperature 97.6 F 98.6 F Pulse Rate 98 102 H 103 H Respiratory Rate 16 16 17 Blood Pressure 130/68 143/87 H 131/76 Pulse Oximetry 99 100 100 Oxygen Delivery 08/12/24 20:00 08/13/24 04:36 08/13/24 04:40 Temperature 102.4 F H 102.4 F H Pulse Rate 103 H Respiratory Rate 17 Blood Pressure 126/68 Pulse Oximetry 96 Oxygen Delivery Room Air 08/13/24 05:36 08/13/24 05:38 08/13/24 08:00 Temperature 101.1 F H 101.1 F H Pulse Rate Respiratory Rate Blood Pressure Pulse Oximetry Oxygen Delivery Room Air Intake/Output Intake/Output: Intake & Output 08/10/24 08/11/24 08/12/24 08/13/24 23:59 23:59 23:59 23:59 Intake Total 50 390 Balance 50 390 Meds/Results Medications: Active Medications Generic Name Dose Route Start Last Admin Trade Name Freq PRN Reason Stop Dose Admin Acetaminophen 650 mg 08/12/24 19:17 08/13/24 04:36 Acetaminophen 325 Mg Tablet PO 650 mg Q4H PRN Administration Mild Pain (1-3) or Fever Dextrose 12.5 gm 08/12/24 17:49 Dextrose 50% 25 Gm/50 Ml Syringe IV PUSH PRN PRN Hypoglycemia Protocol Enoxaparin Sodium 40 mg 08/13/24 09:00 08/13/24 08:59 Enoxaparin 40 Mg/0.4 Ml Syringe SUB-Q 40 mg DAILY LIZET Administration Glucagon 1 mg 08/12/24 17:49 Glucagon For Inj 1 Mg Vial IM PRN PRN Hypoglycemia Protocol Glucose 15 gm 08/12/24 17:49 Glucose Oral Gel 15 Gm Of Glucse In 37.5 Gm Tube PO PRN PRN Hypoglycemia Protocol Cefepime HCl 2 gm in 50 mls @ 100 mls/hr 08/13/24 06:00 08/13/24 05:41 Maxipime 2 Gm/Ns 50 Ml IVPB Infused Q12H LIZET Infusion Metronidazole 500 mg in 100 mls @ 100 mls/hr 08/13/24 06:00 08/13/24 07:25 Flagyl 500 Mg/Iso Soln 100 Ml IVPB Infused Q8H LIZET Infusion Dextrose 1,000 mls @ 100 mls/hr 08/12/24 17:49 Dextrose 5% 1,000 Ml IVPB PRN PRN Hypoglycemia Protocol Vancomycin HCl 1,250 mg in 250 mls @ 166.667 mls/hr 08/13/24 09:00 08/13/24 08:59 Vancomycin 1,250 Mg/Ns 250 Ml IVPB 166.67 mls/hr Q12H LIZET Administration Insulin Aspart 3 - 6 units 08/13/24 08:00 08/13/24 08:59 Insulin Aspart (*Bkc) 100 Units/Ml SUB-Q Not Given TIDWM LIZET Protocol Insulin Aspart 1 - 3 units 08/12/24 21:00 08/12/24 20:34 Insulin Aspart (*Bkc) 100 Units/Ml SUB-Q 1 units HS [facility] Administration Protocol Insulin Glargine 7 units 08/12/24 21:55 08/12/24 23:20 Insulin Glargine (*Bkc) 100 Units/Ml SUB-Q 7 units HS [facility] Administration Morphine Sulfate 2 mg 08/12/24 19:17 Morphine Sulfate (*Crx) 2 Mg/Ml Inj IV PUSH Q4H PRN Pain Rated 7-10 Radiology Results: ITS Impressions Foot X-Ray 08/12/24 16:39 IMPRESSION: No acute osseous abnormality of the right foot. Ankle X-Ray 08/12/24 16:41 IMPRESSION: No definite acute osseous abnormality of the right ankle. Small bony fragment near to the fibular head. Soft tissue swelling over the medial and lateral malleoli. Labs Labs: Laboratory Results - last 24 hr 08/12/24 08/12/24 08/12/24 17:00 18:32 19:31 WBC 13.9 H RBC 3.77 L Hgb 11.1 L Hct 32.5 L MCV 86.2 MCH 29.4 MCHC 34.2 RDW 12.3 Plt Count 276 MPV 9.3 Immature Gran % (Auto) 0.4 Neut % (Auto) 87.0 H Lymph % (Auto) 6.0 L [place] % (Auto) 6.4 Eos % (Auto) 0.1 Baso % (Auto) 0.1 L Lymph # (Auto) 0.83 L [place] # (Auto) 0.9 H Eos # (Auto) 0.0 Baso # (Auto) 0.0 Abs Immat Gran (auto) 0.06 H Absolute Neuts (auto) 12.1 H Absolute Nucleated RBC 0.000 Nucleated RBC % 0.0 PT 14.7 INR 1.1 APTT 32.0 Sodium 122 L Potassium 4.5 Chloride 89 L Carbon Dioxide 23 Anion Gap 10 BUN 19 Creatinine 1.16 Estim Creat Clear Calc 72 Estimated GFR > 60 Glucose 692 H* POC Capillary Glucose 416 H 224 H Hemoglobin A1c 10.9 H Lactic Acid 1.9 Calcium 7.8 L Total Bilirubin 1.1 AST 43 ALT 39 Alkaline Phosphatase 256 H C-Reactive Protein 2.5 H Total Protein 7.0 Albumin 3.4 L 08/13/24 08/13/24 06:06 08:31 WBC 11.5 H RBC 3.17 L Hgb 9.2 L Hct 27.2 L MCV 85.8 MCH 29.0 MCHC 33.8 RDW 12.1 Plt Count 219 MPV 9.4 Immature Gran % (Auto) 0.3 Neut % (Auto) 80.6 H Lymph % (Auto) 11.6 L [place] % (Auto) 7.0 Eos % (Auto) 0.3 Baso % (Auto) 0.2 Lymph # (Auto) 1.33 [place] # (Auto) 0.8 H Eos # (Auto) 0.0 Baso # (Auto) 0.0 Abs Immat Gran (auto) 0.04 H Absolute Neuts (auto) 9.3 H Absolute Nucleated RBC 0.000 Nucleated RBC % 0.0 PT INR APTT Sodium 129 L Potassium 4.1 Chloride 99 Carbon Dioxide 23 Anion Gap 7 BUN 17 Creatinine 1.01 Estim Creat Clear Calc 82 Estimated GFR > 60 Glucose 161 H POC Capillary Glucose 151 H Hemoglobin A1c Lactic Acid Calcium 7.5 L Total Bilirubin AST ALT Alkaline Phosphatase C-Reactive Protein Total Protein Albumin
[2024-08-13 12:13] LABS: Glucose Point of Care 177 mg/dl (65-105)
[2024-08-13 13:56] LABS: Influenza A QL RT-PCR Negative (Negative); Influenza B QL RT-PCR Negative (Negative); RSV RNA, RT-PCR Negative (Negative); SARS-CoV-2 RNA PCR Negative (Negative)
--- NOTE | 2024-08-13 15:00 | P.CONGS_ITS ---
Assessment and Plan Assessment and plan (1) Plantar ulcer of right foot with fat layer exposed: Code(s): L97.512 - Non-pressure chronic ulcer of other part of right foot with fat layer exposed Status: Acute Assessment and Plan: This appears to be the source of infection. All the plain x-rays did not show osteomyelitis, this is suspicious for osteomyelitis. Cultures were taken. I will evaluate further with a probe to see if the ulcer probes to bone which can be another indicator of osteomyelitis. Start silver gel dressing changes daily with right foot elevation. May need debridement but I also warned the patient that metatarsal or even 3rd toe amputation could be possible. Will continue to follow for further evaluation. (2) Diabetic foot infection: Code(s): E11.628 - Type 2 diabetes mellitus with other skin complications; L08.9 - Local infection of the skin and subcutaneous tissue, unspecified Status: Acute Assessment and Plan: Currently patient receiving cefepime, metronidazole, vancomycin. Also started on doxycycline over concerns of pneumonia. (3) Poorly controlled diabetes mellitus: Code(s): E11.65 - Type 2 diabetes mellitus with hyperglycemia Status: Acute Assessment and Plan: Blood sugar on admission 692. Much improved already, down to 161. (4) Peripheral vascular disease in diabetes mellitus: Code(s): E11.51 - Type 2 diabetes mellitus with diabetic peripheral angiopathy without gangrene Status: Acute Assessment and Plan: No palpable pulses below the femoral artery in either leg. Will check for Doppler signals tomorrow when Doppler can be at bedside. Will likely need arterial segmental Dopplers on Thursday. (5) Fever: Qualifiers: Fever type: unspecified Qualified Code(s): R50.9 - Fever, unspecified Code(s): R50.9 - Fever, unspecified Status: Acute Assessment and Plan: Temp to 39.1 about 430 this morning. Could be due to diabetic foot infection or infiltrate seen on chest x-ray. Patient on broad-spectrum antibiotics (6) Right pulmonary infiltrate on CXR: Code(s): R91.8 - Other nonspecific abnormal finding of lung field Status: Acute Assessment and Plan: As noted on chest x-ray this afternoon. History of Present Illness Consult details Consult date: 08/13/24 Reason for consult: other (Diabetic foot infection) Requesting physician: Campos Burnette MD Narrative: Patient is a 29-year-old man who has known he has diabetes for at least 10 years. He has a long history of noncompliance. He works at [employer] and is on his feet almost the entire day. He came to the emergency room and [facility] on July 29, 2024 as he had noticed an ulcer on the bottom of his right foot. This was evaluated in the emergency room but there was no swelling, normal white blood cell count, and no purulence. Patient was discharged on collagenase or Santyl dressing changes daily and requested to follow-up with a lithography contact worker. He reports he did the dressing change is faithfully but did not follow-up. He noticed yesterday that his foot had become quite swollen and that his 3rd toe was erythematous and swollen. He came back to the emergency room. A plantar ulcer over the 3rd metatarsal was again noted but was draining some purulent fluid. Cultures have been sent on this ulcer. His 3rd toe is also swollen and erythematous. Plain films of the foot did not show osteomyelitis. His white blood cell count was elevated to 13,900. He was admitted for diabetic foot infection. He also was noted to have a blood sugar of 692 but was not felt to be in diabetic ketoacidosis. He is seen now in consultation regarding management of his diabetic foot infection. Patient also noted to have fever to 39.1? early this morning about 5:00 a.m.. Chest x-ray today shows ground-glass appearance and concern for pneumonia in the right lung. Patient is on antibiotics both for diabetic foot infection and for potential pneumonia. Review of Systems 2 Review of Systems: All systems reviewed & are unremarkable except as noted in HPI and below (HPI) Constitutional: Constitutional: Denies chills and Denies fever(s) Cardiovascular: Cardiovascular: Denies chest pain, Denies diaphoresis, Denies dyspnea and Denies paroxysmal nocturnal dyspnea Respiratory: Respiratory: Denies chest congestion, Denies cough and Denies dyspnea Integumentary/Breasts: Skin/Breast: Denies lesions and Denies rash [facility] Past Medical History Medical History Diabetes Social History Social History Smoking status: Current every day smoker Tobacco type: e-cigarettes/vaping Second hand tobacco smoke exposure: No Alcohol intake: current Drinks per week: 1 Substance use: current Substance use type: marijuana Other substance usage details: Uses alcohol and substances rarely/socially Last use: 01/23/23 Do You Feel Safe in your Home?: Yes Lack of Transportation: No Lack of Food: Sometimes True Current Housing: I Have Housing Concerned About Future Housing: No Difficulty Paying Gas/Electric Bills: No Difficulty Paying for Meds: No Currently Unemployed: No Education: Decline to Answer Difficulty w/ Childcare or Family Care: No Spiritual care concerns: No Meds Home Medications and Allergies Home Medications ?Medication ?Instructions ?Recorded ?Confirmed ?Type insulin glargine 100 unit/mL (3 7 unit (0.07 mL) subcut HS #15 mL 02/24/23 08/12/24 Rx mL) subcutaneous pen Allergies Allergy/AdvReac Type Severity Reaction Status Date / Time No Known Allergies Allergy Verified 08/12/24 16:17 Vital Signs Vital Signs - 24 hr 08/12/24 16:24 08/12/24 18:51 08/12/24 19:15 Temperature 36.4 C 37.0 C Pulse Rate 98 102 H 103 H Respiratory Rate 16 16 17 Blood Pressure 130/68 143/87 H 131/76 Pulse Oximetry 99 100 100 Oxygen Delivery 08/12/24 20:00 08/13/24 04:36 08/13/24 04:40 Temperature 39.1 C H 39.1 C H Pulse Rate 103 H Respiratory Rate 17 Blood Pressure 126/68 Pulse Oximetry 96 Oxygen Delivery Room Air 08/13/24 05:36 08/13/24 05:38 08/13/24 08:00 Temperature 38.4 C H 38.4 C H Pulse Rate Respiratory Rate Blood Pressure Pulse Oximetry Oxygen Delivery Room Air 08/13/24 14:00 Temperature 36.7 C Pulse Rate 92 Respiratory Rate 16 Blood Pressure 141/81 H Pulse Oximetry 100 Oxygen Delivery Exam 2 Const: General: comfortable, no acute distress, alert, awake and thin HENMT: Head: normocephalic and atraumatic Mouth: Yes Normal oral and palatal mucosa present Eyes: Conjunctivae: conjunctivae normal Pupils: Equal, round and reactive pupils present EOM: EOMs intact bilaterally Neck: Neck: normal visual inspection, no lymphadenopathy and nontender Resp: Effort & Inspection: normal respiratory effort Auscultation: clear to auscultation bilaterally Cardio: Rate: regular rate Rhythm: regular rhythm Heart sounds: no gallops, no murmurs and no rubs Peripheral pulses: femoral pulses present bilateral 3+, popliteal pulses not present, posterior tibial pulses not present and dorsalis pedis pulses not present Other: No distal pulses palpable in either leg beyond the femoral artery. GI: Inspection: non-distended GI Palp: Yes Soft to palpation, No Tenderness to palpation present (GI), No Hepatomegaly present and No Splenomegaly present Skin: Lesions: no lesions Rashes: no rashes Neuro: General: no focal motor deficits and CN's II-XI intact bilaterally C ranial nerves: Yes Equal, round and reactive pupils present, Yes Bilaterally intact EOM present, Yes facial symmetry and Yes Midline tongue present S peech: normal speech Motor exam (neuro): 5/5 motor strength present throughout and Motor abnormalities not present Extrem: General: no calf tenderness, no clubbing, no cyanosis and edema R ight lower extremity: foot (Plantar ulcer with callus and purulent drainage 3rd metatarsal) Details: tenderness, edema and vascular exam Details: dorsalis pedis pulse absent and posterior tibial pulse absent; no crepitus Left lower extremity: foot Details: vascular exam Details: dorsalis pedis pulse absent and posterior tivial pulse absent; no edema Psych: Affect: normal affect Thought process: Normal thought process present Insight: Good insight present (Psych) Results Labs 08/13/24 06:06 08/13/24 06:06 Labs: Abnormal lab results 08/12/24 08/12/24 08/12/24 Range/Units 17:00 18:32 19:31 WBC 13.9 H (4.5-10.0) K/mm3 RBC 3.77 L (4.6-6.20) M/mm3 Hgb 11.1 L (14.0-18.0) g/dL Hct 32.5 L (42.0-52.0) % Neut % (Auto) 87.0 H (45.5-73.1) % Lymph % (Auto) 6.0 L (18.3-44.2) % Baso % (Auto) 0.1 L (0.2-1.2) % Lymph # (Auto) 0.83 L (0.9-3.2) K/mm3 [place] # (Auto) 0.9 H (0.1-0.6) K/mm3 Abs Immat Gran (auto) 0.06 H (0.00-0.031) K/mm3 Absolute Neuts (auto) 12.1 H (1.3-6.7) K/mm3 Sodium 122 L (137-145) mmol/L Chloride 89 L (98-107) mmol/L Glucose 692 H* (65-110) mg/dL POC Capillary Glucose 416 H 224 H (65-105) mg/dl Hemoglobin A1c 10.9 H (<5.7) % Calcium 7.8 L (8.4-10.2) mg/dL Alkaline Phosphatase 256 H (38-126) U/L C-Reactive Protein 2.5 H (<1.0) mg/dL Albumin 3.4 L (3.5-5.1) g/dL 08/13/24 08/13/24 08/13/24 Range/Units 06:06 08:31 12:05 WBC 11.5 H (4.5-10.0) K/mm3 RBC 3.17 L (4.6-6.20) M/mm3 Hgb 9.2 L (14.0-18.0) g/dL Hct 27.2 L (42.0-52.0) % Neut % (Auto) 80.6 H (45.5-73.1) % Lymph % (Auto) 11.6 L (18.3-44.2) % Baso % (Auto) (0.2-1.2) % Lymph # (Auto) (0.9-3.2) K/mm3 [place] # (Auto) 0.8 H (0.1-0.6) K/mm3 Abs Immat Gran (auto) 0.04 H (0.00-0.031) K/mm3 Absolute Neuts (auto) 9.3 H (1.3-6.7) K/mm3 Sodium 129 L (137-145) mmol/L Chloride (98-107) mmol/L Glucose 161 H (65-110) mg/dL POC Capillary Glucose 151 H 177 H (65-105) mg/dl Hemoglobin A1c (<5.7) % Calcium 7.5 L (8.4-10.2) mg/dL Alkaline Phosphatase (38-126) U/L C-Reactive Protein (<1.0) mg/dL Albumin (3.5-5.1) g/dL Diabetes panel 08/12/24 08/13/24 Range/Units 17:00 06:06 Sodium 122 L 129 L (137-145) mmol/L Potassium 4.5 4.1 (3.4-5.0) mmol/L Chloride 89 L 99 (98-107) mmol/L Carbon Dioxide 23 23 (22-30) mmol/L BUN 19 17 (9-20) mg/dL Creatinine 1.16 1.01 (0.7-1.3) mg/dL Glucose 692 H* 161 H (65-110) mg/dL Hemoglobin A1c 10.9 H (<5.7) % Calcium 7.8 L 7.5 L (8.4-10.2) mg/dL AST 43 (17-59) U/L ALT 39 (6-50) U/L Alkaline Phosphatase 256 H (38-126) U/L Total Protein 7.0 (6.3-8.2) g/dL Albumin 3.4 L (3.5-5.1) g/dL Calcium panel 08/12/24 08/13/24 Range/Units 17:00 06:06 Calcium 7.8 L 7.5 L (8.4-10.2) mg/dL Albumin 3.4 L (3.5-5.1) g/dL Pituitary panel 08/12/24 08/13/24 Range/Units 17:00 06:06 Sodium 122 L 129 L (137-145) mmol/L Potassium 4.5 4.1 (3.4-5.0) mmol/L Chloride 89 L 99 (98-107) mmol/L Carbon Dioxide 23 23 (22-30) mmol/L BUN 19 17 (9-20) mg/dL Creatinine 1.16 1.01 (0.7-1.3) mg/dL Glucose 692 H* 161 H (65-110) mg/dL Calcium 7.8 L 7.5 L (8.4-10.2) mg/dL Adrenal panel 08/12/24 08/13/24 Range/Units 17:00 06:06 Sodium 122 L 129 L (137-145) mmol/L Potassium 4.5 4.1 (3.4-5.0) mmol/L Chloride 89 L 99 (98-107) mmol/L Carbon Dioxide 23 23 (22-30) mmol/L BUN 19 17 (9-20) mg/dL Creatinine 1.16 1.01 (0.7-1.3) mg/dL Glucose 692 H* 161 H (65-110) mg/dL Calcium 7.8 L 7.5 L (8.4-10.2) mg/dL Total Bilirubin 1.1 (0.2-1.3) mg/dL AST 43 (17-59) U/L ALT 39 (6-50) U/L Alkaline Phosphatase 256 H (38-126) U/L Total Protein 7.0 (6.3-8.2) g/dL Albumin 3.4 L (3.5-5.1) g/dL All other labs normal.
[2024-08-13 17:19] LABS: Glucose Point of Care 212 mg/dl (65-105)
[2024-08-13] MEDS: INSULIN ASPART (*BKC) 100 UNITS/ML SUB-Q ×2 (17:28→20:47)
[2024-08-13 19:05] LABS: MRSA (PCR) NOT DETECTED (NOT DETECTE)
[2024-08-13 20:11] LABS: Glucose Point of Care 264 mg/dl (65-105)
[2024-08-13] MEDS: DOXYCYCLINE HYCLATE 100 MG TABLET PO (20:46)
[2024-08-13] MEDS: VANCOMYCIN 1,250 MG/NS 250 ML 1,250 MG/250 ML BAG 166 MG IVPB (20:47)
[2024-08-13] MEDS: INSULIN GLARGINE (*BKC) 100 UNITS/ML 7 UNITS SUB-Q (20:47)
[2024-08-14] VITALS: BP 124/68; PULSE 87; RESP 16; TEMP 36.6; O2SAT 97
[2024-08-14 04:54] VITALS: BP 126/66; PULSE 96; RESP 16; TEMP 36.8; O2SAT 96
[2024-08-14] MEDS: CEFEPIME 2 GM/NS 50 ML 2 GM/50 ML BAG IVPB ×2 (05:37→17:20)
[2024-08-14] MEDS: metroNIDAZOLE 500 MG/ISO 100ML 500 MG/100 ML BAG 100 MG IVPB ×3 (06:18→21:31)
[2024-08-14 06:28] LABS: Basophils Percent Auto 0.1 % (0.2-1.2); Eosinophils Absolute Auto 0.1 K/mm3 (0-0.3); Eosinophils Percent Auto 0.7 % (0-4.4); Hemoglobin 9.6 g/dL (14.0-18.0); Immature Granulocyte Absolute 0.03 K/mm3 (0.00-0.031); Immature Granulocyte Percent A 0.4 % (0-0.5); Mean Corpuscular HGB Conc 33.1 g/dl (32-36); Mean Corpuscular Hemoglobin 29.2 pg (26-34); Mean Corpuscular Volume 88.1 fl (80-100); Mean Platelet Volume 9.5 fl (7.4-10.4); Monocytes Absolute Auto 0.5 K/mm3 (0.1-0.6); Monocytes Percent Auto 6.1 % (2.6-8.5); Neutrophils Absolute Auto 6.8 K/mm3 (1.3-6.7); Neutrophils Percent Auto 78.7 % (45.5-73.1); Platelet Count Result 228 k/mm3 (150-375); Red Blood Count 3.29 M/mm3 (4.6-6.20); Red Cell Distribution Width 12.1 % (11.5-14.5); White Blood Count 8.6 K/mm3 (4.5-10.0)
[2024-08-14 06:38] LABS: Alanine Aminotransferase 46 U/L (6-50); Albumin Level 2.6 g/dL (3.5-5.1); Alkaline Phosphatase 230 U/L (38-126); Anion Gap 4 mmol/L (4-12); Aspartate Amino Transferase 30 U/L (17-59); Bilirubin,Total 0.4 mg/dL (0.2-1.3); Blood Urea Nitrogen 20 mg/dL (9-20); Calcium 7.5 mg/dL (8.4-10.2); Carbon Dioxide 27 mmol/L (22-30); Chloride 102 mmol/L (98-107); Estimated CRCL calculation 81 ml/min; Estimated Glomerular Filt Rate > 60; Glucose 201 mg/dL (65-110); Sodium 133 mmol/L (137-145)
[2024-08-14 06:52] LABS: Iron 32 ug/dL (49-181)
[2024-08-14 07:02] LABS: Percent Iron Saturation 17 % (20-50)
[2024-08-14 07:42] LABS: Folic Acid 6.8 ng/mL (2.76->20)
[2024-08-14 07:52] LABS: Glucose Point of Care 188 mg/dl (65-105)
[2024-08-14 08:35] LABS: Vancomycin Trough 13.9 ug/mL (10.0-20.0)
[2024-08-14] MEDS: ENOXAPARIN 40 MG/0.4 ML SYRINGE SUB-Q (08:55)
[2024-08-14] MEDS: DOXYCYCLINE HYCLATE 100 MG TABLET PO ×2 (08:55→21:31)
[2024-08-14] MEDS: VANCOMYCIN 1,000 MG/NS 250 ML 1,000 MG/250 ML BAG 250 MG IVPB ×3 (08:56→23:41)
[2024-08-14 11:51] LABS: Glucose Point of Care 252 mg/dl (65-105)
[2024-08-14] MEDS: INSULIN ASPART (*BKC) 100 UNITS/ML SUB-Q ×3 (12:57→21:32)
[2024-08-14 14:00] VITALS: BP 135/95; PULSE 90; RESP 16; TEMP 37.2; O2SAT 99
--- NOTE | 2024-08-14 15:11 | PM.PNGS ---
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 G stain from yesterday suggests polymicrobial infection. Will try to proceed with wound debridement on Thursday if operating schedule will allow. (2) Diabetic foot infection: Code(s): E11.628 - Type 2 diabetes mellitus with other skin complications; L08.9 - Local infection of the skin and subcutaneous tissue, unspecified Status: Acute Assessment and Plan: Continue IV antibiotics. New erythema on instep is worrisome. (3) Peripheral vascular disease in diabetes mellitus: Code(s): E11.51 - Type 2 diabetes mellitus with diabetic peripheral angiopathy without gangrene Status: Chronic Assessment and Plan: Brisk hand held Doppler signals dorsalis pedis and posterior tibial on the right foot. Arterial segmental Dopplers not read as yet but appear to me to be consistent with mildly impaired perfusion. I suspect debridement and even toe amputation would have adequate vascular supply to heal. (4) Poorly controlled diabetes mellitus: Code(s): E11.65 - Type 2 diabetes mellitus with hyperglycemia Status: Chronic Assessment and Plan: Patient noncompliance with treatment of diabetes for over 10 years. 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 Etiology could be diabetic foot infection or lung infiltrate-see below. (6) Right pulmonary infiltrate on CXR: Code(s): R91.8 - Other nonspecific abnormal finding of lung field Status: Acute Assessment and Plan: Abnormal chest x-ray but does not have hypoxemia, cough, shortness of breath. Started on doxycycline and also on broad-spectrum antibiotics as treatment for the diabetic foot infection. Subjective Subjective Date/Time Seen: 08/14/24 15:11 Patient reports: no new complaints and afebrile (Maximum temperature was 37.7? about 9:00 p.m. last night, much better than early a.m. 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, foul odor) Details: normal capillary refill, abnormal to inspection (New erythema on instep, 3rd toe less red), tenderness, no edema, edema and vascular exam (Brisk biphasic signals by handheld Doppler dorsalis pedis and posterior tibial) Details: dorsalis pedis pulse absent (Not palpable), posterior tibial pulse absent (Not palpable), not cool and no cyanosis; no ecchymosis and no crepitus Objective Data Vital Signs Vital Signs: Vital Signs - 24 hr 08/13/24 17:50 08/13/24 20:36 08/13/24 20:40 Temperature 37.3 C Pulse Rate 100 100 Respiratory Rate 18 18 Blood Pressure 137/58 L Pulse Oximetry 98 99 99 Oxygen Delivery Room Air Room Air 08/13/24 21:08 08/13/24 22:08 08/14/24 00:00 Temperature 37.7 C H 37.4 C 36.6 C Pulse Rate 87 Respiratory Rate 16 Blood Pressure 124/68 Pulse Oximetry 97 Oxygen Delivery 08/14/24 04:54 08/14/24 14:00 Temperature 36.8 C 37.2 C Pulse Rate 96 90 Respiratory Rate 16 16 Blood Pressure 126/66 135/95 H Pulse Oximetry 96 99 Oxygen Delivery Intake/Output Intake/Output: Intake & Output 08/11/24 08/12/24 08/13/24 08/14/24 23:59 23:59 23:59 23:59 Intake Total 50 2196.7 1040 Output Total 770 Balance 50 1426.7 1040 Meds/Results Medications: Active Medications Generic Name Dose Route Start Last Admin Trade Name Freq PRN Reason Stop Dose Admin Acetaminophen 650 mg 08/12/24 19:17 08/13/24 21:08 Acetaminophen 325 Mg Tablet PO 650 mg Q4H PRN Administration Mild Pain (1-3) or Fever Dextrose 12.5 gm 08/12/24 17:49 Dextrose 50% 25 Gm/50 Ml Syringe IV PUSH PRN PRN Hypoglycemia Protocol Doxycycline Hyclate 100 mg 08/13/24 21:00 08/14/24 08:55 Doxycycline Hyclate 100 Mg Tablet PO 08/18/24 09:01 100 mg Q12HR LIZET Administration Enoxaparin Sodium 40 mg 08/13/24 09:00 08/14/24 08:55 Enoxaparin 40 Mg/0.4 Ml Syringe SUB-Q 40 mg DAILY LIZET Administration Glucagon 1 mg 08/12/24 17:49 Glucagon For Inj 1 Mg Vial IM PRN PRN Hypoglycemia Protocol Glucose 15 gm 08/12/24 17:49 Glucose Oral Gel 15 Gm Of Glucse In 37.5 Gm Tube PO PRN PRN Hypoglycemia Protocol Cefepime HCl 2 gm in 50 mls @ 100 mls/hr 08/13/24 06:00 08/14/24 06:07 Maxipime 2 Gm/Ns 50 Ml IVPB Infused Q12H LIZET Infusion Metronidazole 500 mg in 100 mls @ 100 mls/hr 08/13/24 06:00 08/14/24 07:18 Flagyl 500 Mg/Iso Soln 100 Ml IVPB Infused Q8H LIZET Infusion Dextrose 1,000 mls @ 100 mls/hr 08/12/24 17:49 Dextrose 5% 1,000 Ml IVPB PRN PRN Hypoglycemia Protocol Vancomycin HCl 1,000 mg in 250 mls @ 250 mls/hr 08/14/24 08:00 08/14/24 09:56 Vancomycin 1,000 Mg/Ns 250 Ml IVPB Infused Q8H LIZET Infusion Insulin Aspart 3 - 6 units 08/13/24 08:00 08/14/24 12:57 Insulin Aspart (*Bkc) 100 Units/Ml SUB-Q 4 units TIDWM [facility] Administration Protocol Insulin Aspart 1 - 3 units 08/12/24 21:00 08/13/24 20:47 Insulin Aspart (*Bkc) 100 Units/Ml SUB-Q 2 units HS LIZET Administration Protocol Insulin Glargine 7 units 08/12/24 21:55 08/13/24 20:47 Insulin Glargine (*Bkc) 100 Units/Ml SUB-Q 7 units HS LIZET Administration Morphine Sulfate 2 mg 08/12/24 19:17 Morphine Sulfate (*Crx) 2 Mg/Ml Inj IV PUSH Q4H PRN Pain Rated 7-10 Radiology Results: ITS Impressions Foot X-Ray 08/12/24 16:39 IMPRESSION: No acute osseous abnormality of the right foot. Ankle X-Ray 08/12/24 16:41 IMPRESSION: No definite acute osseous abnormality of the right ankle. Small bony fragment near to the fibular head. Soft tissue swelling over the medial and lateral malleoli. Chest X-Ray 08/13/24 12:46 IMPRESSION: Diffuse groundglass and airspace disease in the right lung, concerning for pneumonia. Short-term follow-up chest radiograph is recommended after appropriate clinical therapy. Venous Doppler Study 08/13/24 19:13 IMPRESSION: Negative bilateral lower extremity venous US. No deep vein thrombosis. Right inguinal enlarged lymph node. Clinical correlation advised. Labs Labs: Laboratory Results - last 24 hr 08/13/24 08/13/24 08/13/24 13:16 17:07 17:43 WBC RBC Hgb Hct MCV MCH MCHC RDW Plt Count MPV Immature Gran % (Auto) Neut % (Auto) Lymph % (Auto) [place] % (Auto) Eos % (Auto) Baso % (Auto) Lymph # (Auto) [place] # (Auto) Eos # (Auto) Baso # (Auto) Abs Immat Gran (auto) Absolute Neuts (auto) Absolute Nucleated RBC Nucleated RBC % Sodium Potassium Chloride Carbon Dioxide Anion Gap BUN Creatinine Estim Creat Clear Calc Estimated GFR Glucose POC Capillary Glucose 212 H Calcium Iron TIBC % Saturation Ferritin Total Bilirubin AST ALT Alkaline Phosphatase Total Protein Albumin Vitamin B12 Folate Nasal MRSA (PCR) Not detected Vancomycin Trough Influenza A (RT-PCR) Negative Influenza B (RT-PCR) Negative RSV (RT-PCR) Negative SARS-CoV-2 RNA (RT-PCR) Negative 08/13/24 08/14/24 08/14/24 19:44 06:11 06:21 WBC 8.6 RBC 3.29 L Hgb 9.6 L Hct 29.0 L MCV 88.1 MCH 29.2 MCHC 33.1 RDW 12.1 Plt Count 228 MPV 9.5 Immature Gran % (Auto) 0.4 Neut % (Auto) 78.7 H Lymph % (Auto) 14.0 L [place] % (Auto) 6.1 Eos % (Auto) 0.7 Baso % (Auto) 0.1 L Lymph # (Auto) 1.20 [place] # (Auto) 0.5 Eos # (Auto) 0.1 Baso # (Auto) 0.0 Abs Immat Gran (auto) 0.03 Absolute Neuts (auto) 6.8 H Absolute Nucleated RBC 0.000 Nucleated RBC % 0.0 Sodium 133 L Potassium 4.0 Chloride 102 Carbon Dioxide 27 Anion Gap 4 BUN 20 Creatinine 1.03 Estim Creat Clear Calc 81 Estimated GFR > 60 Glucose 201 H POC Capillary Glucose 264 H Calcium 7.5 L Iron 32 L TIBC 185 L % Saturation 17 L Ferritin 258.00 Total Bilirubin 0.4 AST 30 ALT 46 Alkaline Phosphatase 230 H Total Protein 6.0 L Albumin 2.6 L Vitamin B12 431.0 Folate 6.8 Nasal MRSA (PCR) Vancomycin Trough Influenza A (RT-PCR) Influenza B (RT-PCR) RSV (RT-PCR) SARS-CoV-2 RNA (RT-PCR) 08/14/24 08/14/24 08/14/24 07:40 07:49 11:41 WBC RBC Hgb Hct MCV MCH MCHC RDW Plt Count MPV Immature Gran % (Auto) Neut % (Auto) Lymph % (Auto) [place] % (Auto) Eos % (Auto) Baso % (Auto) Lymph # (Auto) [place] # (Auto) Eos # (Auto) Baso # (Auto) Abs Immat Gran (auto) Absolute Neuts (auto) Absolute Nucleated RBC Nucleated RBC % Sodium Potassium Chloride Carbon Dioxide Anion Gap BUN Creatinine Estim Creat Clear Calc Estimated GFR Glucose POC Capillary Glucose 188 H 252 H Calcium Iron TIBC % Saturation Ferritin Total Bilirubin AST ALT Alkaline Phosphatase Total Protein Albumin Vitamin B12 Folate Nasal MRSA (PCR) Vancomycin Trough 13.9 Influenza A (RT-PCR) Influenza B (RT-PCR) RSV (RT-PCR) SARS-CoV-2 RNA (RT-PCR) Imaging Attestation: I personally reviewed and interpreted this imaging study as follows: (Arterial segmental Dopplers) My impression: Difficult to interpret as many vessels could not be compressed. Waveforms on the right lower extremity do appear biphasic and the ALESSIA is 0.84 on the right. This is consistent with impaired vascular flow and arterial sclerosis but not severe or end stage. Foot surgery and toe amputation would likely heal. Radiologist's impression: Not yet read
[2024-08-14 16:51] LABS: Glucose Point of Care 219 mg/dl (65-105)
--- NOTE | 2024-08-14 16:54 | P.PNIM_ITS ---
Progress Note: A&P Assessment and Plan (1) Infected ulcer of skin: Qualifiers: Non-pressure ulcer stage: unspecified non-pressure ulcer stage Qualified Code(s): L98.499 - Non-pressure chronic ulcer of skin of other sites with unspecified severity; L08.9 - Local infection of the skin and subcutaneous tissue, unspecified Code(s): L98.499 - Non-pressure chronic ulcer of skin of other sites with unspecified severity; L08.9 - Local infection of the skin and subcutaneous tissue, unspecified Status: Acute Assessment and Plan: Patient presents with right foot wound and has developed sepsis symptoms. Lactic normal but with elevated WBC, fever and tachycardia. Rt Foot XR showed no acute osseous abnormality. Rt Ankle XR showed no definite acute osseous abnormality of the right ankle but with small bony fragment near the fibular head. Soft tissue swelling over the medial and lateral malleoli. LE venous doppler negative for DVT. Started on cefepime, vancomycin, and Flagyl on 08/12. BCx NGTD WCx pending. WBC normal now and fever curve better. General surgery consult with plans for debridement in the OR. LE arteial dopplers pending. Continue current wound care. Continue IV abx. (2) Pneumonia: Code(s): J18.9 - Pneumonia, unspecified organism Status: Acute Assessment and Plan: CXR showing diffuse ground glass and airspace opacities in the right lung concerning for PNA. COVID, influenza and RSV negative. MRSA nasal swab negative Continue IV abx as above. Doxy added for atypical coverage Check sputum (3) Sepsis: Code(s): A41.9 - Sepsis, unspecified organism Status: Acute Assessment and Plan: As above (4) Diabetes: Qualifiers: Diabetes mellitus complication detail: with foot ulcer Diabetes mellitus complication status: with skin complications Diabetes mellitus senior care insulin use: without senior care use Diabetes mellitus type: type 2 Qualified Code(s): E11.621 - Type 2 diabetes mellitus with foot ulcer; L97.509 - Non-pressure chronic ulcer of other part of unspecified foot with unspecified severity Code(s): E11.9 - Type 2 diabetes mellitus without complications Status: Acute Assessment and Plan: Initially unclear if DM Type 1 vs 2. No history of DKA. Antibody testing in January of 2023 was negative. 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 Initial glucose 692, no anion gap. He is noncompliant with Lantus. He was given regular insulin 10 units IV push with improvement. Lantus resumed The patient's blood glucose was reviewed on 08/14 Glucose better overall but still poorly controlled. Continue AccuCheks covering with sliding scale. Hypoglycemia protocol available as needed. Patient declines Dietitian and outreach educator consults He will be NPO after MN so will decrease his Lantus tonight. (5) Anemia: Code(s): D64.9 - Anemia, unspecified Status: Acute Assessment and Plan: Hgb 11.1 on admission but dropped to 9 range. No obvious acute blood loss. Iron 32/185 with iroan sat 17%. Ferritin 285. B12/folate normal. Current inflammatory condition may be skewing these findings Follow HH Plan Hyponatremia - Na 122 on admission but 131 when corrected for hyperglycemia. Sodium better as glucose becomes better controlled. Follow. DVT Prophylaxis: Lovenox SQ Code Status: Full code Subjective Date/time seen: 08/14/24 16:54 Interval history: 29yo male with diabetes (presumed type 2) who presents here with a right foot wound. No complaints today. No Cp or SOB. Cough is nonproductive. Denies HIV risk factors. Exam Narrative: AF 98.9 135/95 90 16 99% ra Gen - NARD Chest - left base crackles o/w clear. CV - RRR S1/S2 Abd - Soft, NT/ND, Positive BS Ext - RLE less edematous Psych - Nml mood and affect Skin - 5 x 3 cm ulceration to the plantar aspect of his right foot with central dried eschar and a purulent fluid bulla distal to this. Erythema to right mid [place] and dorsal foot. Dried eschar right mid [place]. Objective Data Vital Signs Vital Signs: Vital Signs - 24 hr 08/13/24 17:50 08/13/24 20:36 08/13/24 20:40 Temperature 99.2 F Pulse Rate 100 100 Respiratory Rate 18 18 Blood Pressure 137/58 L Pulse Oximetry 98 99 99 Oxygen Delivery Room Air Room Air 08/13/24 21:08 08/13/24 22:08 08/14/24 00:00 Temperature 99.8 F H 99.4 F 97.9 F Pulse Rate 87 Respiratory Rate 16 Blood Pressure 124/68 Pulse Oximetry 97 Oxygen Delivery 08/14/24 04:54 08/14/24 08:00 08/14/24 14:00 Temperature 98.2 F 98.9 F Pulse Rate 96 90 Respiratory Rate 16 16 Blood Pressure 126/66 135/95 H Pulse Oximetry 96 99 Oxygen Delivery Room Air Intake/Output Intake/Output: Intake & Output 08/11/24 08/12/24 08/13/24 08/14/24 23:59 23:59 23:59 23:59 Intake Total 50 2196.7 2040 Output Total 770 Balance 50 1426.7 2040 Meds/Results Medications: Active Medications Generic Name Dose Route Start Last Admin Trade Name Freq PRN Reason Stop Dose Admin Acetaminophen 650 mg 08/12/24 19:17 08/13/24 21:08 Acetaminophen 325 Mg Tablet PO 650 mg Q4H PRN Administration Mild Pain (1-3) or Fever Dextrose 12.5 gm 08/12/24 17:49 Dextrose 50% 25 Gm/50 Ml Syringe IV PUSH PRN PRN Hypoglycemia Protocol Doxycycline Hyclate 100 mg 08/13/24 21:00 08/14/24 08:55 Doxycycline Hyclate 100 Mg Tablet PO 08/18/24 09:01 100 mg Q12HR LIZET Administration Enoxaparin Sodium 40 mg 08/13/24 09:00 08/14/24 08:55 Enoxaparin 40 Mg/0.4 Ml Syringe SUB-Q 40 mg DAILY LIZET Administration Glucagon 1 mg 08/12/24 17:49 Glucagon For Inj 1 Mg Vial IM PRN PRN Hypoglycemia Protocol Glucose 15 gm 08/12/24 17:49 Glucose Oral Gel 15 Gm Of Glucse In 37.5 Gm Tube PO PRN PRN Hypoglycemia Protocol Cefepime HCl 2 gm in 50 mls @ 100 mls/hr 08/13/24 06:00 08/14/24 06:07 Maxipime 2 Gm/Ns 50 Ml IVPB Infused Q12H LIZET Infusion Metronidazole 500 mg in 100 mls @ 100 mls/hr 08/13/24 06:00 08/14/24 07:18 Flagyl 500 Mg/Iso Soln 100 Ml IVPB Infused Q8H LIZET Infusion Dextrose 1,000 mls @ 100 mls/hr 08/12/24 17:49 Dextrose 5% 1,000 Ml IVPB PRN PRN Hypoglycemia Protocol Vancomycin HCl 1,000 mg in 250 mls @ 250 mls/hr 08/14/24 08:00 08/14/24 09:56 Vancomycin 1,000 Mg/Ns 250 Ml IVPB Infused Q8H COUNT INCLUDES THE [facility] Infusion Insulin Aspart 3 - 6 units 08/13/24 08:00 08/14/24 12:57 Insulin Aspart (*Bkc) 100 Units/Ml SUB-Q 4 units TIDWM COUNT INCLUDES THE [facility] Administration Protocol Insulin Aspart 1 - 3 units 08/12/24 21:00 08/13/24 20:47 Insulin Aspart (*Bkc) 100 Units/Ml SUB-Q 2 units HS LIZET Administration Protocol Insulin Glargine 7 units 08/12/24 21:55 08/13/24 20:47 Insulin Glargine (*Bkc) 100 Units/Ml SUB-Q 7 units HS LIZET Administration Morphine Sulfate 2 mg 08/12/24 19:17 Morphine Sulfate (*Crx) 2 Mg/Ml Inj IV PUSH Q4H PRN Pain Rated 7-10 Radiology Results: ITS Impressions Foot X-Ray 08/12/24 16:39 IMPRESSION: No acute osseous abnormality of the right foot. Ankle X-Ray 08/12/24 16:41 IMPRESSION: No definite acute osseous abnormality of the right ankle. Small bony fragment near to the fibular head. Soft tissue swelling over the medial and lateral malleoli. Chest X-Ray 08/13/24 12:46 IMPRESSION: Diffuse groundglass and airspace disease in the right lung, concerning for pneumonia. Short-term follow-up chest radiograph is recommended after appropriate clinical therapy. Venous Doppler Study 08/13/24 19:13 IMPRESSION: Negative bilateral lower extremity venous US. No deep vein thrombosis. Right inguinal enlarged lymph node. Clinical correlation advised. Labs Labs: Laboratory Results - last 24 hr 08/13/24 08/13/24 08/13/24 13:16 17:07 17:43 WBC RBC Hgb Hct MCV MCH MCHC RDW Plt Count MPV Immature Gran % (Auto) Neut % (Auto) Lymph % (Auto) [place] % (Auto) Eos % (Auto) Baso % (Auto) Lymph # (Auto) [place] # (Auto) Eos # (Auto) Baso # (Auto) Abs Immat Gran (auto) Absolute Neuts (auto) Absolute Nucleated RBC Nucleated RBC % Sodium Potassium Chloride Carbon Dioxide Anion Gap BUN Creatinine Estim Creat Clear Calc Estimated GFR Glucose POC Capillary Glucose 212 H Calcium Iron TIBC % Saturation Ferritin Total Bilirubin AST ALT Alkaline Phosphatase Total Protein Albumin Vitamin B12 Folate Nasal MRSA (PCR) Not detected Vancomycin Trough Influenza A (RT-PCR) Negative Influenza B (RT-PCR) Negative RSV (RT-PCR) Negative SARS-CoV-2 RNA (RT-PCR) Negative 08/13/24 08/14/24 08/14/24 19:44 06:11 06:21 WBC 8.6 RBC 3.29 L Hgb 9.6 L Hct 29.0 L MCV 88.1 MCH 29.2 MCHC 33.1 RDW 12.1 Plt Count 228 MPV 9.5 Immature Gran % (Auto) 0.4 Neut % (Auto) 78.7 H Lymph % (Auto) 14.0 L [place] % (Auto) 6.1 Eos % (Auto) 0.7 Baso % (Auto) 0.1 L Lymph # (Auto) 1.20 [place] # (Auto) 0.5 Eos # (Auto) 0.1 Baso # (Auto) 0.0 Abs Immat Gran (auto) 0.03 Absolute Neuts (auto) 6.8 H Absolute Nucleated RBC 0.000 Nucleated RBC % 0.0 Sodium 133 L Potassium 4.0 Chloride 102 Carbon Dioxide 27 Anion Gap 4 BUN 20 Creatinine 1.03 Estim Creat Clear Calc 81 Estimated GFR > 60 Glucose 201 H POC Capillary Glucose 264 H Calcium 7.5 L Iron 32 L TIBC 185 L % Saturation 17 L Ferritin 258.00 Total Bilirubin 0.4 AST 30 ALT 46 Alkaline Phosphatase 230 H Total Protein 6.0 L Albumin 2.6 L Vitamin B12 431.0 Folate 6.8 Nasal MRSA (PCR) Vancomycin Trough Influenza A (RT-PCR) Influenza B (RT-PCR) RSV (RT-PCR) SARS-CoV-2 RNA (RT-PCR) 08/14/24 08/14/24 08/14/24 07:40 07:49 11:41 WBC RBC Hgb Hct MCV MCH MCHC RDW Plt Count MPV Immature Gran % (Auto) Neut % (Auto) Lymph % (Auto) [place] % (Auto) Eos % (Auto) Baso % (Auto) Lymph # (Auto) [place] # (Auto) Eos # (Auto) Baso # (Auto) Abs Immat Gran (auto) Absolute Neuts (auto) Absolute Nucleated RBC Nucleated RBC % Sodium Potassium Chloride Carbon Dioxide Anion Gap BUN Creatinine Estim Creat Clear Calc Estimated GFR Glucose POC Capillary Glucose 188 H 252 H Calcium Iron TIBC % Saturation Ferritin Total Bilirubin AST ALT Alkaline Phosphatase Total Protein Albumin Vitamin B12 Folate Nasal MRSA (PCR) Vancomycin Trough 13.9 Influenza A (RT-PCR) Influenza B (RT-PCR) RSV (RT-PCR) SARS-CoV-2 RNA (RT-PCR) 08/14/24 16:45 WBC RBC Hgb Hct MCV MCH MCHC RDW Plt Count MPV Immature Gran % (Auto) Neut % (Auto) Lymph % (Auto) [place] % (Auto) Eos % (Auto) Baso % (Auto) Lymph # (Auto) [place] # (Auto) Eos # (Auto) Baso # (Auto) Abs Immat Gran (auto) Absolute Neuts (auto) Absolute Nucleated RBC Nucleated RBC % Sodium Potassium Chloride Carbon Dioxide Anion Gap BUN Creatinine Estim Creat Clear Calc Estimated GFR Glucose POC Capillary Glucose 219 H Calcium Iron TIBC % Saturation Ferritin Total Bilirubin AST ALT Alkaline Phosphatase Total Protein Albumin Vitamin B12 Folate Nasal MRSA (PCR) Vancomycin Trough Influenza A (RT-PCR) Influenza B (RT-PCR) RSV (RT-PCR) SARS-CoV-2 RNA (RT-PCR)
[2024-08-14 21:13] LABS: Glucose Point of Care 243 mg/dl (65-105)
[2024-08-14] MEDS: INSULIN GLARGINE (*BKC) 100 UNITS/ML SUB-Q (21:32)
[2024-08-14 22:00] VITALS: BP 135/72; PULSE 93; RESP 18; O2SAT 96
[2024-08-15] VITALS (13 sets, daily range): BP systolic 112–144; BP diastolic 69–80; PULSE 80–95; RESP 13–20; TEMP 36.2–37.6; O2SAT 95–100
[2024-08-15] MEDS: CEFEPIME 2 GM/NS 50 ML 2 GM/50 ML BAG IVPB ×2 (05:09→17:00)
[2024-08-15] MEDS: metroNIDAZOLE 500 MG/ISO 100ML 500 MG/100 ML BAG 100 MG IVPB ×3 (05:12→21:26)
[2024-08-15 07:10] LABS: Basophils Percent Auto 0.2 % (0.2-1.2); Eosinophils Absolute Auto 0.1 K/mm3 (0-0.3); Eosinophils Percent Auto 0.5 % (0-4.4); Hematocrit 28.5 % (42.0-52.0); Hemoglobin 9.5 g/dL (14.0-18.0); Immature Granulocyte Absolute 0.06 K/mm3 (0.00-0.031); Immature Granulocyte Percent A 0.6 % (0-0.5); Lymphocytes Absolute Auto 1.39 K/mm3 (0.9-3.2); Lymphocytes Percent Auto 14.4 % (18.3-44.2); Mean Corpuscular HGB Conc 33.3 g/dl (32-36); Mean Corpuscular Hemoglobin 29.3 pg (26-34); Mean Platelet Volume 9.2 fl (7.4-10.4); Monocytes Absolute Auto 0.7 K/mm3 (0.1-0.6); Monocytes Percent Auto 7.2 % (2.6-8.5); Neutrophils Absolute Auto 7.4 K/mm3 (1.3-6.7); Neutrophils Percent Auto 77.1 % (45.5-73.1); Platelet Count Result 249 k/mm3 (150-375); Red Blood Count 3.24 M/mm3 (4.6-6.20); Red Cell Distribution Width 11.9 % (11.5-14.5); White Blood Count 9.7 K/mm3 (4.5-10.0)
[2024-08-15 07:29] LABS: Anion Gap 4 mmol/L (4-12); Blood Urea Nitrogen 15 mg/dL (9-20); Calcium 7.5 mg/dL (8.4-10.2); Carbon Dioxide 27 mmol/L (22-30); Chloride 103 mmol/L (98-107); Estimated CRCL calculation 79 ml/min; Estimated Glomerular Filt Rate > 60; Glucose 122 mg/dL (65-110); Potassium 3.9 mmol/L (3.4-5.0); Sodium 134 mmol/L (137-145)
--- NOTE | 2024-08-15 07:44 | P.PNIM_ITS ---
Progress Note: A&P Assessment and Plan (1) Infected ulcer of skin: Qualifiers: Non-pressure ulcer stage: unspecified non-pressure ulcer stage Qualified Code(s): L98.499 - Non-pressure chronic ulcer of skin of other sites with unspecified severity; L08.9 - Local infection of the skin and subcutaneous tissue, unspecified Code(s): L98.499 - Non-pressure chronic ulcer of skin of other sites with unspecified severity; L08.9 - Local infection of the skin and subcutaneous tissue, unspecified Status: Acute Assessment and Plan: Patient presents with right foot wound and has developed sepsis symptoms. Lactic normal but with elevated WBC, fever and tachycardia. Rt Foot XR showed no acute osseous abnormality. Rt Ankle XR showed no definite acute osseous abnormality of the right ankle but with small bony fragment near the fibular head. Soft tissue swelling over the medial and lateral malleoli. LE venous doppler negative for DVT. Started on cefepime, vancomycin, and Flagyl on 08/12. BCx NGTD WCx pending. WBC normal now and fever curve better. General surgery consult with plans for debridement in the OR. LE arteial dopplers pending. Continue current wound care. Continue IV abx. (2) Pneumonia: Code(s): J18.9 - Pneumonia, unspecified organism Status: Acute Assessment and Plan: CXR showing diffuse ground glass and airspace opacities in the right lung concerning for PNA. COVID, influenza and RSV negative. MRSA nasal swab negative Continue IV abx as above. Doxy added for atypical coverage Sputum ordered (3) Sepsis: Code(s): A41.9 - Sepsis, unspecified organism Status: Acute Assessment and Plan: As above (4) Diabetes: Qualifiers: Diabetes mellitus complication detail: with foot ulcer Diabetes mellitus complication status: with skin complications Diabetes mellitus vessel ordinary seaman insulin use: without vessel ordinary seaman use Diabetes mellitus type: type 2 Qualified Code(s): E11.621 - Type 2 diabetes mellitus with foot ulcer; L97.509 - Non-pressure chronic ulcer of other part of unspecified foot with unspecified severity Code(s): E11.9 - Type 2 diabetes mellitus without complications Status: Acute Assessment and Plan: Initially unclear if DM Type 1 vs 2. No history of DKA. Antibody testing in January of 2023 was negative. 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 Initial glucose 692, no anion gap. He is noncompliant with Lantus. He was given regular insulin 10 units IV push with improvement. Lantus resumed The patient's blood glucose was reviewed on 08/14 Glucose better overall but still poorly controlled. Continue AccuCheks covering with sliding scale. Hypoglycemia protocol available as needed. Patient declines Dietitian and certified adaptive physical educator consults Resume his normal dose of Lantus since no longer NPO (5) Anemia: Code(s): D64.9 - Anemia, unspecified Status: Acute Assessment and Plan: Hgb 11.1 on admission but dropped to 9 range. No obvious acute blood loss. Iron 32/185 with iroan sat 17%. Ferritin 285. B12/folate normal. Current inflammatory condition may be skewing these findings Follow HH Plan Hyponatremia - Na 122 on admission but 131 when corrected for hyperglycemia. Sodium better as glucose becomes better controlled. Follow. DVT Prophylaxis: Lovenox SQ Code Status: Full code Subjective Date/time seen: 08/15/24 07:44 Interval history: 29yo male with diabetes (presumed type 2) who presents here with a right foot wound. No CP or SOB. Slept off and on Exam Narrative: AF 98.9 133/69 91 18 97% ra Gen - NARD Chest - CTA bilaterally CV - RRR S1/S2 Abd - Soft, NT/ND, Positive BS Ext - RLE less edematous; right foot dressing c/d/i Psych - Nml mood and affect Skin - fading erythema to right mid [place] with dried eschar right mid warren. Objective Data Vital Signs Vital Signs: Vital Signs - 24 hr 08/14/24 08:00 08/14/24 14:00 08/14/24 20:00 Temperature 98.9 F Pulse Rate 90 Respiratory Rate 16 Blood Pressure 135/95 H Pulse Oximetry 99 Oxygen Delivery Room Air Room Air 08/14/24 22:00 08/15/24 06:00 Temperature Pulse Rate 93 91 Respiratory Rate 18 18 Blood Pressure 135/72 133/69 Pulse Oximetry 96 97 Oxygen Delivery Intake/Output Intake/Output: Intake & Output 08/12/24 08/13/24 08/14/24 08/15/24 23:59 23:59 23:59 23:59 Intake Total 50 2196.7 2780 400 Output Total 770 Balance 50 1426.7 2780 400 Meds/Results Medications: Active Medications Generic Name Dose Route Start Last Admin Trade Name Freq PRN Reason Stop Dose Admin Acetaminophen 650 mg 08/12/24 19:17 08/13/24 21:08 Acetaminophen 325 Mg Tablet PO 650 mg Q4H PRN Administration Mild Pain (1-3) or Fever Dextrose 12.5 gm 08/12/24 17:49 Dextrose 50% 25 Gm/50 Ml Syringe IV PUSH PRN PRN Hypoglycemia Protocol Doxycycline Hyclate 100 mg 08/13/24 21:00 08/14/24 21:31 Doxycycline Hyclate 100 Mg Tablet PO 08/18/24 09:01 100 mg Q12HR LIZET Administration Enoxaparin Sodium 40 mg 08/13/24 09:00 08/14/24 08:55 Enoxaparin 40 Mg/0.4 Ml Syringe SUB-Q 40 mg DAILY LIZET Administration Glucagon 1 mg 08/12/24 17:49 Glucagon For Inj 1 Mg Vial IM PRN PRN Hypoglycemia Protocol Glucose 15 gm 08/12/24 17:49 Glucose Oral Gel 15 Gm Of Glucse In 37.5 Gm Tube PO PRN PRN Hypoglycemia Protocol Cefepime HCl 2 gm in 50 mls @ 100 mls/hr 08/13/24 06:00 08/15/24 05:39 Maxipime 2 Gm/Ns 50 Ml IVPB Infused Q12H LIZET Infusion Metronidazole 500 mg in 100 mls @ 100 mls/hr 08/13/24 06:00 08/15/24 06:12 Flagyl 500 Mg/Iso Soln 100 Ml IVPB Infused Q8H LIZET Infusion Dextrose 1,000 mls @ 100 mls/hr 08/12/24 17:49 Dextrose 5% 1,000 Ml IVPB PRN PRN Hypoglycemia Protocol Vancomycin HCl 1,000 mg in 250 mls @ 250 mls/hr 08/14/24 08:00 08/15/24 00:41 Vancomycin 1,000 Mg/Ns 250 Ml IVPB Infused Q8H LIZET Infusion Insulin Aspart 3 - 6 units 08/13/24 08:00 08/14/24 17:20 Insulin Aspart (*Bkc) 100 Units/Ml SUB-Q 3 units TIDWM LIZET Administration Protocol Insulin Aspart 1 - 3 units 08/12/24 21:00 08/14/24 21:32 Insulin Aspart (*Bkc) 100 Units/Ml SUB-Q 1 units HS [facility] Administration Protocol Insulin Glargine 5 units 08/14/24 21:00 08/14/24 21:32 Insulin Glargine (*Bkc) 100 Units/Ml SUB-Q 5 units HS [facility] Administration Morphine Sulfate 2 mg 08/12/24 19:17 Morphine Sulfate (*Crx) 2 Mg/Ml Inj IV PUSH Q4H PRN Pain Rated 7-10 Radiology Results: ITS Impressions Foot X-Ray 08/12/24 16:39 IMPRESSION: No acute osseous abnormality of the right foot. Ankle X-Ray 08/12/24 16:41 IMPRESSION: No definite acute osseous abnormality of the right ankle. Small bony fragment near to the fibular head. Soft tissue swelling over the medial and lateral malleoli. Chest X-Ray 08/13/24 12:46 IMPRESSION: Diffuse groundglass and airspace disease in the right lung, concerning for pneumonia. Short-term follow-up chest radiograph is recommended after appropriate clinical therapy. Venous Doppler Study 08/13/24 19:13 IMPRESSION: Negative bilateral lower extremity venous US. No deep vein thrombosis. Right inguinal enlarged lymph node. Clinical correlation advised. Labs Labs: Laboratory Results - last 24 hr 08/14/24 08/14/24 08/14/24 07:40 07:49 11:41 WBC RBC Hgb Hct MCV MCH MCHC RDW Plt Count MPV Immature Gran % (Auto) Neut % (Auto) Lymph % (Auto) [place] % (Auto) Eos % (Auto) Baso % (Auto) Lymph # (Auto) [place] # (Auto) Eos # (Auto) Baso # (Auto) Abs Immat Gran (auto) Absolute Neuts (auto) Absolute Nucleated RBC Nucleated RBC % Sodium Potassium Chloride Carbon Dioxide Anion Gap BUN Creatinine Estim Creat Clear Calc Estimated GFR Glucose POC Capillary Glucose 188 H 252 H Calcium Vancomycin Trough 13.9 08/14/24 08/14/24 08/15/24 16:45 20:22 06:58 WBC 9.7 RBC 3.24 L Hgb 9.5 L Hct 28.5 L MCV 88.0 MCH 29.3 MCHC 33.3 RDW 11.9 Plt Count 249 MPV 9.2 Immature Gran % (Auto) 0.6 H Neut % (Auto) 77.1 H Lymph % (Auto) 14.4 L [place] % (Auto) 7.2 Eos % (Auto) 0.5 Baso % (Auto) 0.2 Lymph # (Auto) 1.39 [place] # (Auto) 0.7 H Eos # (Auto) 0.1 Baso # (Auto) 0.0 Abs Immat Gran (auto) 0.06 H Absolute Neuts (auto) 7.4 H Absolute Nucleated RBC 0.000 Nucleated RBC % 0.0 Sodium 134 L Potassium 3.9 Chloride 103 Carbon Dioxide 27 Anion Gap 4 BUN 15 D Creatinine 1.05 Estim Creat Clear Calc 79 Estimated GFR > 60 Glucose 122 H POC Capillary Glucose 219 H 243 H Calcium 7.5 L Vancomycin Trough
--- NOTE | 2024-08-15 07:46 | PCWOUND ---
WOCN NOTE Received referral for foot wound. Patient is being followed by General surgery at this time.
[2024-08-15] MEDS: DOXYCYCLINE HYCLATE 100 MG TABLET PO ×2 (08:30→21:26)
--- NOTE | 2024-08-15 08:30 | PC.NURSE ---
Report called to Karina MOYER preop RN.
[2024-08-15 08:42] LABS: Vancomycin Trough 17.6 ug/mL (10.0-20.0)
[2024-08-15] MEDS: VANCOMYCIN 1,000 MG/NS 250 ML 1,000 MG/250 ML BAG 250 MG IVPB ×2 (08:55→15:52)
[2024-08-15 09:01] LABS: Glucose Point of Care 117 mg/dl (65-105)
--- NOTE | 2024-08-15 09:59 | PCCDE ---
08/15/24 Stopped into room to double check lack of interest in DM education (per 08/15 Dr. Burnette note) due to consult request received 08/12/24. Pt declines, no questions, stating I know all about it . Declined [employer] as well. FJ
[2024-08-15 12:07] LABS: Glucose Point of Care 118 mg/dl (65-105)
--- NOTE | 2024-08-15 12:55 | PC.NURSE ---
To OR via wheelchair.
[2024-08-15] MEDS: LACTATED RINGERS 1,000 ML 30 ML IV CONT (13:30)
--- NOTE | 2024-08-15 14:10 | P.PNAN_ITS ---
Anes - Initial Pre Proc Eval Procedure: Operation Date: 08/15/24 14:30 Proposed Procedures p Debridement Right Foot Ulcer - Kraig Garcia MD Date/Time: 08/15/24 14:10 Surgeon: Otilio Barnett MD Pre Op Diagnosis: Infected diabetic foot ulcer Patient Data Age: 29 Gender: M Height: 1.65 m Weight: 65.4 kg Last Vital Signs Temp 37.0 C 08/15/24 13:15 Pulse 82 08/15/24 13:15 Resp 16 08/15/24 13:15 BP 137/79 08/15/24 13:15 Pulse Ox 100 08/15/24 13:15 O2 Del Method Room Air 08/15/24 13:15 Allergies Allergy/AdvReac Type Severity Reaction Status Date / Time No Known Allergies Allergy Verified 08/12/24 16:17 Home Medications ?Medication ?Instructions ?Recorded ?Confirmed ?Type insulin glargine 100 unit/mL (3 7 unit (0.07 mL) subcut HS #15 mL 02/24/23 08/12/24 Rx mL) subcutaneous pen Laboratory Tests 08/14/24 08/14/24 08/15/24 16:45 20:22 06:58 WBC 9.7 K/mm3 (4.5-10.0) RBC 3.24 L M/mm3 (4.6-6.20) Hgb 9.5 L g/dL (14.0-18.0) Hct 28.5 L % (42.0-52.0) MCV 88.0 fl (80-100) MCH 29.3 pg (26-34) MCHC 33.3 g/dl (32-36) RDW 11.9 % (11.5-14.5) Plt Count 249 k/mm3 (150-375) MPV 9.2 fl (7.4-10.4) Immature Gran % (Auto) 0.6 H % (0-0.5) Neut % (Auto) 77.1 H % (45.5-73.1) Lymph % (Auto) 14.4 L % (18.3-44.2) [place] % (Auto) 7.2 % (2.6-8.5) Eos % (Auto) 0.5 % (0-4.4) Baso % (Auto) 0.2 % (0.2-1.2) Lymph # (Auto) 1.39 K/mm3 (0.9-3.2) [place] # (Auto) 0.7 H K/mm3 (0.1-0.6) Eos # (Auto) 0.1 K/mm3 (0-0.3) Baso # (Auto) 0.0 K/mm3 (0.0-0.1) Abs Immat Gran (auto) 0.06 H K/mm3 (0.00-0.031) Absolute Neuts (auto) 7.4 H K/mm3 (1.3-6.7) Absolute Nucleated RBC 0.000 K/mm3 (0.0-0.012) Nucleated RBC % 0.0 % (0.0-0.2) Sodium 134 L mmol/L (137-145) Potassium 3.9 mmol/L (3.4-5.0) Chloride 103 mmol/L (98-107) Carbon Dioxide 27 mmol/L (22-30) Anion Gap 4 mmol/L (4-12) BUN 15 D mg/dL (9-20) Creatinine 1.05 mg/dL (0.7-1.3) Estim Creat Clear Calc 79 ml/min Estimated GFR > 60 (59 - ) Glucose 122 H mg/dL (65-110) POC Capillary Glucose 219 H mg/dl 243 H mg/dl (65-105) (65-105) Calcium 7.5 L mg/dL (8.4-10.2) Vancomycin Trough 17.6 ug/mL (10.0-20.0) 08/15/24 08/15/24 08:37 12:00 WBC RBC Hgb Hct MCV MCH MCHC RDW Plt Count MPV Immature Gran % (Auto) Neut % (Auto) Lymph % (Auto) [place] % (Auto) Eos % (Auto) Baso % (Auto) Lymph # (Auto) [place] # (Auto) Eos # (Auto) Baso # (Auto) Abs Immat Gran (auto) Absolute Neuts (auto) Absolute Nucleated RBC Nucleated RBC % Sodium Potassium Chloride Carbon Dioxide Anion Gap BUN Creatinine Estim Creat Clear Calc Estimated GFR Glucose POC Capillary Glucose 117 H mg/dl 118 H mg/dl (65-105) (65-105) Calcium Vancomycin Trough Patient hx anesthesia problems: none Family hx anesthesia problems: none Results Review: All pre-operative results and documents have been reviewed as part of the pre-operative evaluation. REPLACED BY [facility] Past Medical History Medical History (Updated 08/15/24 @ 14:13 by Chandan Caraballo MD) Diabetes poorly controlled with neuropathy Social History Social History Smoking status: Current every day smoker Tobacco type: e-cigarettes/vaping Second hand tobacco smoke exposure: No Alcohol intake: current Drinks per week: 1 Substance use: current Substance use type: marijuana Other substance usage details: Uses alcohol and substances rarely/socially Last use: 01/23/23 Do You Feel Safe in your Home?: Yes Lack of Transportation: No Lack of Food: Sometimes True Current Housing: I Have Housing Concerned About Future Housing: No Difficulty Paying Gas/Electric Bills: No Difficulty Paying for Meds: No Currently Unemployed: No Education: Decline to Answer Difficulty w/ Childcare or Family Care: No Spiritual care concerns: No Anes - Eval Final PreProcedure Day of Procedure 08/15/24 14:10 Patient weight: normal Heart: regular rate and rhythm Lungs: clear to auscultation Airway: Mallampati scale class II and special considerations poor dentition Neurological: alert and oriented Last oral intake: >/= 8 hours ASA classification: IV Emergent: no Anesthetic plan: proceed Anesthesia type and monitoring: general GIVS and standard monitoring Results Review: All pre-operative results and documents have been reviewed as part of the pre- operative evaluation. Informed Consent: The patient's anesthetic plan and its attendant risks and benefits were discussed with the patient/family/POA. Questions were solicited and answers provided to the satisfaction of the patient/family/POA.
--- NOTE | 2024-08-15 14:41 | WPDHPUPDATE1 ---
History and Physical Update Update Date/Time: 08/15/24 14:41 History and Physical has been reviewed, including an updated exam of the patient. There are NO changes in the patient's condition. Risks, benefits, and alternatives have been discussed and questions answered. Patient agrees to proceed with procedure.
--- NOTE | 2024-08-15 15:44 | W.PM.PROC2 ---
Procedure Note - Detailed Date of Procedure 08/15/24 Pre-op Diagnosis Infected diabetic foot ulcer right 3rd metatarsal Post-op Diagnosis Same (Infected diabetic foot ulcer with deep space infection including toes right foot) Procedure Performed Excisional debridement right foot including skin, subcutaneous, muscle, and bone-5 x 2 x 1.5 cm or 15 cm3 Surgeon Kraig Garcia MD [employer] [place] Anesthesia General (G IV S) Indications Patient presented with right 3rd metatarsal plantar ulcer with evidence of necrotic tissue, infection, and foul odor. Plain films did not show osteomyelitis. Patient also presented with diabetes out of control with blood sugar over 600. He was admitted and started on IV antibiotics. The 3rd metatarsal ulcer continues to have a foul odor with purulent drainage and necrotic tissue. There was also evidence of 3rd and 4th toe involvement with erythema of the instep. He is taken to surgery now for debridement of the ulcer and any associated necrotic tissue. Findings The ulcer led distally and between the webspace of the 3rd and 4th toe. There was necrotizing soft tissue infection that undermined the skin on the dorsum of the 3rd and 4th toe. Skin, subcutaneous, muscle, and eventually some of the 3rd metatarsal bone that was obviously infected were debrided. Debridement was to healthy tissue. Fourth toe looked slightly ischemic after debridement. Description of Procedure Patient was taken to surgery and general anesthesia with IV sedation was administered. The right foot was prepped and draped. The right 3rd metatarsal plantar ulcer was probed. It probed to bone and had a foul odor. Some callus around the 3rd toe ulcer was debrided. I then excised some necrotic subcutaneous in the 3rd toe ulcer. Cultures of the wound were taken from the deep space between bones where the ulcer tracked. Even though I debrided tissue to the extent I could just through the ulcer, there was obviously more purulent fluid and necrotic tissue on distally between the webspace of the 3rd and 4th toes. There was also noted to be some drainage in the web space as well. I excised some of the skin on distally from the plantar space ulcer. This exposed more purulent fluid and necrotic tissue. From here, I continued to excise necrotic tissue and found several pockets of liquefaction necrosis. All these pockets were opened and devitalized tissue excised. The infection was in the deep space in led to the anterior foot between the 3rd and 4th toes. There was liquified necrotic tissue and purulent fluid under the skin and above the bone on each of the proximal 3rd and 4th toes. This was all debrided and excised. I used a curette to remove some of the necrotic tissue. I excised skin, subcutaneous, necrotic muscle. The 3rd metatarsal was now exposed as it was subluxed. This bone was clearly involved and abnormal, suspicious for osteomyelitis. I excised this bone and sent it to pathology. We continued the exploration, debridement and excision until we appeared to be at healthy tissue throughout the wound. I then measured the wound which was 5 cm in anterior-posterior dimension, 2 cm wide, and 1.5 cm deep. The 4th toe looked dusky at the conclusion of the debridement. It is unclear at this point whether this wound would heal or if 3rd and 4th toe amputation will be required. I then packed the wound with 1 in iodoform Nu Gauze. The wound was then dressed with fluffs, ABDs and wrapped with a Kerlix roll. Patient was then awakened and taken to recovery in good condition. Sponge and needle counts were correct x2. Estimated Blood Loss -30 Urine Output 770 Drains No Packing Yes (1 in iodoform Nu Gauze) Pathology Other (3rd metatarsal bone and cultures for aerobes, anaerobes, and Gram stain) Complications None Condition Stable Disposition PACU [facility] Billing Surgery - Charge Forward: Surgery Billing (Excisional debridement right 3rd metatarsal ulcer including skin, subcutaneous, muscle, and bone-5 X 2 X 1.5 cm)
--- NOTE | 2024-08-15 16:30 | PC.NURSE ---
Rerturned from OR via stretcher.
[2024-08-15 17:11] LABS: Glucose Point of Care 117 mg/dl (65-105)
[2024-08-15 20:59] LABS: Glucose Point of Care 206 mg/dl (65-105)
[2024-08-15] MEDS: INSULIN ASPART (*BKC) 100 UNITS/ML SUB-Q (21:29)
[2024-08-15] MEDS: INSULIN GLARGINE (*BKC) 100 UNITS/ML 7 UNITS SUB-Q (21:29)
[2024-08-16] MEDS: VANCOMYCIN 1,000 MG/NS 250 ML 1,000 MG/250 ML BAG 250 MG IVPB ×3 (00:12→15:13)
[2024-08-16 04:05] VITALS: BP 127/66; PULSE 82; RESP 16; TEMP 37.1; O2SAT 89
[2024-08-16] MEDS: metroNIDAZOLE 500 MG/ISO 100ML 500 MG/100 ML BAG 100 MG IVPB ×3 (05:16→21:07)
[2024-08-16] MEDS: CEFEPIME 2 GM/NS 50 ML 2 GM/50 ML BAG IVPB ×2 (05:17→17:00)
[2024-08-16 07:43] LABS: Glucose Point of Care 129 mg/dl (65-105)
[2024-08-16 08:02] VITALS: RESP 16; O2SAT 93
[2024-08-16] MEDS: DOXYCYCLINE HYCLATE 100 MG TABLET PO ×2 (08:02→21:07)
[2024-08-16] MEDS: ENOXAPARIN 40 MG/0.4 ML SYRINGE SUB-Q (08:02)
--- NOTE | 2024-08-16 11:01 | PM.PNGS ---
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 Wound looks good today. No purulent drainage or significant necrotic tissue. Continue IV antibiotics and local wound care. Wound cultures on admission polymicrobial. Cultures taken in the OR show many mixed bacterial iglesia on the Gram stain. Will follow cultures. (2) Diabetic foot infection: Code(s): E11.628 - Type 2 diabetes mellitus with other skin complications; L08.9 - Local infection of the skin and subcutaneous tissue, unspecified Status: Acute Assessment and Plan: Continue IV antibiotics. Elevate right lower extremity when at rest. Instructed him to use heel touch weight-bearing to the right lower extremity when getting up to the bathroom. (3) Peripheral vascular disease in diabetes mellitus: Code(s): E11.51 - Type 2 diabetes mellitus with diabetic peripheral angiopathy without gangrene Status: Chronic Assessment and Plan: Arterial Doppler showed mildly decreased right ALESSIA and TBI. Hopeful that this will be adequate perfusion for wound healing. (4) Poorly controlled diabetes mellitus: Code(s): E11.65 - Type 2 diabetes mellitus with hyperglycemia Status: Chronic Assessment and Plan: Poorly controlled diabetes with noncompliance. Hemoglobin A1c was 10.9 on admission. We discussed the importance of glycemic control, specifically in the setting of a diabetic foot infection and wound healing. (5) Fever: Qualifiers: Fever type: unspecified Qualified Code(s): R50.9 - Fever, unspecified Code(s): R50.9 - Fever, unspecified Status: Acute Assessment and Plan: Temp 99.7? F last night, but afebrile this morning. Continue to monitor. (6) Right pulmonary infiltrate on CXR: Code(s): R91.8 - Other nonspecific abnormal finding of lung field Status: Acute Assessment and Plan: Abnormal chest x-ray but asymptomatic. Continue antibiotics. Plan I have discussed the patient's case and plan of care with Dr. Garcia. Subjective Subjective Date/Time Seen: 08/16/24 11:01 Post Op day: 1 Objective Data Vital Signs Vital Signs: Vital Signs - 24 hr 08/15/24 13:15 08/15/24 14:00 08/15/24 15:39 Temperature 98.6 F 98.4 F 97.2 F L Pulse Rate 82 85 82 Respiratory Rate 16 20 17 Blood Pressure 137/79 125/72 112/73 Pulse Oximetry 100 95 99 Oxygen Delivery Room Air Simple Face Mask Oxygen Flow Rate 8 08/15/24 15:45 08/15/24 16:00 08/15/24 16:15 Temperature Pulse Rate 80 84 84 Respiratory Rate 19 15 13 Blood Pressure 115/76 130/80 135/80 Pulse Oximetry 100 95 95 Oxygen Delivery Simple Face Mask Room Air Room Air Oxygen Flow Rate 8 08/15/24 16:30 08/15/24 16:30 08/15/24 16:30 Temperature 98.4 F 98.3 F Pulse Rate 85 82 Respiratory Rate 16 20 18 Blood Pressure 125/72 126/70 Pulse Oximetry 95 95 96 Oxygen Delivery Room Air Oxygen Flow Rate 08/15/24 16:45 08/15/24 17:15 08/15/24 19:58 Temperature 98.5 F 98.1 F 99.7 F H Pulse Rate 84 84 95 Respiratory Rate 20 20 20 Blood Pressure 130/70 130/72 144/72 H Pulse Oximetry 98 98 98 Oxygen Delivery Oxygen Flow Rate 08/15/24 20:00 08/16/24 04:05 08/16/24 08:02 Temperature 98.7 F Pulse Rate 95 82 Respiratory Rate 20 16 16 Blood Pressure 127/66 Pulse Oximetry 98 89 L 93 Oxygen Delivery Room Air Room Air Oxygen Flow Rate Intake/Output Intake/Output: Intake & Output 08/13/24 08/14/24 08/15/24 08/16/24 23:59 23:59 23:59 23:59 Intake Total 2196.7 2780 1740 1287 Output Total 770 770 Balance 1426.7 2780 970 1287 Meds/Results Medications: Active Medications Generic Name Dose Route Start Last Admin Trade Name Freq PRN Reason Stop Dose Admin Acetaminophen 650 mg 08/12/24 19:17 08/13/24 21:08 Acetaminophen 325 Mg Tablet PO 650 mg Q4H PRN Administration Mild Pain (1-3) or Fever Dextrose 12.5 gm 08/12/24 17:49 Dextrose 50% 25 Gm/50 Ml Syringe IV PUSH PRN PRN Hypoglycemia Protocol Doxycycline Hyclate 100 mg 08/13/24 21:00 08/16/24 08:02 Doxycycline Hyclate 100 Mg Tablet PO 08/18/24 09:01 100 mg Q12HR LIZET Administration Enoxaparin Sodium 40 mg 08/13/24 09:00 08/16/24 08:02 Enoxaparin 40 Mg/0.4 Ml Syringe SUB-Q 40 mg DAILY LIZET Administration Glucagon 1 mg 08/12/24 17:49 Glucagon For Inj 1 Mg Vial IM PRN PRN Hypoglycemia Protocol Glucose 15 gm 08/12/24 17:49 Glucose Oral Gel 15 Gm Of Glucse In 37.5 Gm Tube PO PRN PRN Hypoglycemia Protocol Cefepime HCl 2 gm in 50 mls @ 100 mls/hr 08/13/24 06:00 08/16/24 05:17 Maxipime 2 Gm/Ns 50 Ml IVPB 100 mls/hr Q12H LIZET Administration Metronidazole 500 mg in 100 mls @ 100 mls/hr 08/13/24 06:00 08/16/24 05:16 Flagyl 500 Mg/Iso Soln 100 Ml IVPB 100 mls/hr Q8H LIZET Administration Dextrose 1,000 mls @ 100 mls/hr 08/12/24 17:49 Dextrose 5% 1,000 Ml IVPB PRN PRN Hypoglycemia Protocol Vancomycin HCl 1,000 mg in 250 mls @ 250 mls/hr 08/14/24 08:00 08/16/24 09:02 Vancomycin 1,000 Mg/Ns 250 Ml IVPB Infused Q8H LIZET Infusion Insulin Aspart 3 - 6 units 08/13/24 08:00 08/16/24 07:59 Insulin Aspart (*Bkc) 100 Units/Ml SUB-Q Not Given TIDWM [facility] Protocol Insulin Aspart 1 - 3 units 08/12/24 21:00 08/15/24 21:29 Insulin Aspart (*Bkc) 100 Units/Ml SUB-Q 1 units HS LIZET Administration Protocol Insulin Glargine 7 units 08/15/24 21:00 08/15/24 21:29 Insulin Glargine (*Bkc) 100 Units/Ml SUB-Q 7 units HS LIZET Administration Morphine Sulfate 2 mg 08/12/24 19:17 Morphine Sulfate (*Crx) 2 Mg/Ml Inj IV PUSH Q4H PRN Pain Rated 7-10 Oxycodone/Acetaminophen 1 tablet 08/15/24 16:10 Oxycodone/Acetaminophen (*Crx) 5-325 Mg Tablet PO Q4H PRN Pain Rated 4-6 Radiology Results: ITS Impressions Foot X-Ray 08/12/24 16:39 IMPRESSION: No acute osseous abnormality of the right foot. Ankle X-Ray 08/12/24 16:41 IMPRESSION: No definite acute osseous abnormality of the right ankle. Small bony fragment near to the fibular head. Soft tissue swelling over the medial and lateral malleoli. Chest X-Ray 08/13/24 12:46 IMPRESSION: Diffuse groundglass and airspace disease in the right lung, concerning for pneumonia. Short-term follow-up chest radiograph is recommended after appropriate clinical therapy. Venous Doppler Study 08/13/24 19:13 IMPRESSION: Negative bilateral lower extremity venous US. No deep vein thrombosis. Right inguinal enlarged lymph node. Clinical correlation advised. Doppler Study Ultrasound 08/15/24 08:35 IMPRESSION: 1. 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 2. No significant arterial occlusive disease to the left lower limb with normal left TBI. Labs Labs: Laboratory Results - last 24 hr 08/15/24 08/15/24 08/15/24 12:00 17:04 19:50 POC Capillary Glucose 118 H 117 H 206 H 08/16/24 07:38 POC Capillary Glucose 129 H
[2024-08-16 11:22] LABS: Glucose Point of Care 213 mg/dl (65-105)
[2024-08-16] MEDS: INSULIN ASPART (*BKC) 100 UNITS/ML SUB-Q ×3 (11:34→21:10)
[2024-08-16 14:00] VITALS: BP 124/68; PULSE 82; RESP 18; TEMP 36.8; O2SAT 96
--- NOTE | 2024-08-16 14:44 | PM.IMPN ---
Progress Note: A&P Assessment and Plan (1) Infected ulcer of skin: Qualifiers: Non-pressure ulcer stage: unspecified non-pressure ulcer stage Qualified Code(s): L98.499 - Non-pressure chronic ulcer of skin of other sites with unspecified severity; L08.9 - Local infection of the skin and subcutaneous tissue, unspecified Code(s): L98.499 - Non-pressure chronic ulcer of skin of other sites with unspecified severity; L08.9 - Local infection of the skin and subcutaneous tissue, unspecified Status: Acute Assessment and Plan: Patient presents with right foot wound and has developed sepsis symptoms. Lactic normal but with elevated WBC, fever and tachycardia. Rt Foot XR showed no acute osseous abnormality. Rt Ankle XR showed no definite acute osseous abnormality of the right ankle but with small bony fragment near the fibular head. Soft tissue swelling over the medial and lateral malleoli. LE venous doppler negative for DVT. Started on cefepime, vancomycin, and Flagyl on 08/12. BCx NGTD WCx pending. WBC normal now and fever curve better. General surgery consult with plans for debridement in the OR. LE arteial dopplers pending. Continue current wound care. Continue IV abx. (2) Pneumonia: Code(s): J18.9 - Pneumonia, unspecified organism Status: Acute Assessment and Plan: CXR showing diffuse ground glass and airspace opacities in the right lung concerning for PNA. COVID, influenza and RSV negative. MRSA nasal swab negative Continue IV abx as above. 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 No history of DKA. Antibody testing in January of 2023 was negative. 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 Initial glucose 692, no anion gap. He is noncompliant with Lantus. He was given regular insulin 10 units IV push with improvement. Lantus resumed The patient's blood glucose was reviewed on 08/14 Glucose better overall but still poorly controlled. Continue AccuCheks covering with sliding scale. Hypoglycemia protocol available as needed. Patient declines Dietitian and hematology nurse educator consults Resume his normal dose of Lantus since no longer NPO (5) Anemia: Code(s): D64.9 - Anemia, unspecified Status: Acute Assessment and Plan: Hgb 11.1 on admission but dropped to 9 range. No obvious acute blood loss. Iron 32/185 with iroan sat 17%. Ferritin 285. B12/folate normal. Current inflammatory condition may be skewing these findings Follow HH Plan Hyponatremia - Na 122 on admission but 134 when corrected for hyperglycemia. Sodium better as glucose becomes better controlled. Follow. patient with history of DM presented with planter ulcer of the right foot with fat layer exposed seen by surgery service s/p surgical debridement POD # 1, had dressing changed, wound is healing well, wound culture is growing multiorganism culture patient is treated with Cefepime, Flagyl and vancomycin patient stats he is feeling better, will continue to monitor and further recommendation to follow DVT Prophylaxis: Lovenox SQ Code Status: Full code Subjective Date/time seen: 08/16/24 14:44 Interval history: 29yo male with diabetes (presumed type 2) who presents here with a right foot wound. No CP or SOB. Slept off and on patient with history of DM presented with planter ulcer of the right foot with fat layer exposed seen by surgery service s/p surgical debridement POD # 1, had dressing changed, wound is healing well, wound culture is growing multiorganism culture patient is treated with Cefepime, Flagyl and vancomycin patient stats he is feeling better, will continue to monitor and further recommendation to follow Review of Systems Review of Systems: All systems reviewed & are unremarkable except as noted in HPI and below Objective Data Vital Signs Vital Signs: Vital Signs - 24 hr 08/15/24 15:39 08/15/24 15:45 08/15/24 16:00 Temperature 36.2 C L Pulse Rate 82 80 84 Respiratory Rate 17 19 15 Blood Pressure 112/73 115/76 130/80 Pulse Oximetry 99 100 95 Oxygen Delivery Simple Face Mask Simple Face Mask Room Air Oxygen Flow Rate 8 8 08/15/24 16:15 08/15/24 16:30 08/15/24 16:30 Temperature 36.9 C Pulse Rate 84 85 Respiratory Rate 13 16 20 Blood Pressure 135/80 125/72 Pulse Oximetry 95 95 95 Oxygen Delivery Room Air Room Air Oxygen Flow Rate 08/15/24 16:30 08/15/24 16:45 08/15/24 17:15 Temperature 36.8 C 36.9 C 36.7 C Pulse Rate 82 84 84 Respiratory Rate 18 20 20 Blood Pressure 126/70 130/70 130/72 Pulse Oximetry 96 98 98 Oxygen Delivery Oxygen Flow Rate 08/15/24 19:58 08/15/24 20:00 08/16/24 04:05 Temperature 37.6 C H 37.1 C Pulse Rate 95 95 82 Respiratory Rate 20 20 16 Blood Pressure 144/72 H 127/66 Pulse Oximetry 98 98 89 L Oxygen Delivery Room Air Oxygen Flow Rate 08/16/24 08:02 08/16/24 14:00 Temperature 36.8 C Pulse Rate 82 Respiratory Rate 16 18 Blood Pressure 124/68 Pulse Oximetry 93 96 Oxygen Delivery Room Air Oxygen Flow Rate Intake/Output Intake/Output: Intake & Output 08/13/24 08/14/24 08/15/24 08/16/24 23:59 23:59 23:59 23:59 Intake Total 2196.7 2780 1740 1624 Output Total 770 770 Balance 1426.7 2780 970 1624 Meds/Results Medications: Active Medications Generic Name Dose Route Start Last Admin Trade Name Freq PRN Reason Stop Dose Admin Acetaminophen 650 mg 08/12/24 19:17 08/13/24 21:08 Acetaminophen 325 Mg Tablet PO 650 mg Q4H PRN Administration Mild Pain (1-3) or Fever Dextrose 12.5 gm 08/12/24 17:49 Dextrose 50% 25 Gm/50 Ml Syringe IV PUSH PRN PRN Hypoglycemia Protocol Doxycycline Hyclate 100 mg 08/13/24 21:00 08/16/24 08:02 Doxycycline Hyclate 100 Mg Tablet PO 08/18/24 09:01 100 mg Q12HR LIZET Administration Enoxaparin Sodium 40 mg 08/13/24 09:00 08/16/24 08:02 Enoxaparin 40 Mg/0.4 Ml Syringe SUB-Q 40 mg DAILY LIZET Administration Glucagon 1 mg 08/12/24 17:49 Glucagon For Inj 1 Mg Vial IM PRN PRN Hypoglycemia Protocol Glucose 15 gm 08/12/24 17:49 Glucose Oral Gel 15 Gm Of Glucse In 37.5 Gm Tube PO PRN PRN Hypoglycemia Protocol Cefepime HCl 2 gm in 50 mls @ 100 mls/hr 08/13/24 06:00 08/16/24 05:17 Maxipime 2 Gm/Ns 50 Ml IVPB 100 mls/hr Q12H LIZET Administration Metronidazole 500 mg in 100 mls @ 100 mls/hr 08/13/24 06:00 08/16/24 13:39 Flagyl 500 Mg/Iso Soln 100 Ml IVPB 100 mls/hr Q8H LIZET Administration Dextrose 1,000 mls @ 100 mls/hr 08/12/24 17:49 Dextrose 5% 1,000 Ml IVPB PRN PRN Hypoglycemia Protocol Vancomycin HCl 1,000 mg in 250 mls @ 250 mls/hr 08/14/24 08:00 08/16/24 09:02 Vancomycin 1,000 Mg/Ns 250 Ml IVPB Infused Q8H LIZET Infusion Insulin Aspart 3 - 6 units 08/13/24 08:00 08/16/24 11:34 Insulin Aspart (*Bkc) 100 Units/Ml SUB-Q 3 units TIDWM LIZET Administration Protocol Insulin Aspart 1 - 3 units 08/12/24 21:00 08/15/24 21:29 Insulin Aspart (*Bkc) 100 Units/Ml SUB-Q 1 units HS LIZET Administration Protocol Insulin Glargine 7 units 08/15/24 21:00 08/15/24 21:29 Insulin Glargine (*Bkc) 100 Units/Ml SUB-Q 7 units HS LIZET Administration Morphine Sulfate 2 mg 08/12/24 19:17 Morphine Sulfate (*Crx) 2 Mg/Ml Inj IV PUSH Q4H PRN Pain Rated 7-10 Oxycodone/Acetaminophen 1 tablet 08/15/24 16:10 Oxycodone/Acetaminophen (*Crx) 5-325 Mg Tablet PO Q4H PRN Pain Rated 4-6 Radiology Results: ITS Impressions Foot X-Ray 08/12/24 16:39 IMPRESSION: No acute osseous abnormality of the right foot. Ankle X-Ray 08/12/24 16:41 IMPRESSION: No definite acute osseous abnormality of the right ankle. Small bony fragment near to the fibular head. Soft tissue swelling over the medial and lateral malleoli. Chest X-Ray 08/13/24 12:46 IMPRESSION: Diffuse groundglass and airspace disease in the right lung, concerning for pneumonia. Short-term follow-up chest radiograph is recommended after appropriate clinical therapy. Venous Doppler Study 08/13/24 19:13 IMPRESSION: Negative bilateral lower extremity venous US. No deep vein thrombosis. Right inguinal enlarged lymph node. Clinical correlation advised. Doppler Study Ultrasound 08/15/24 08:35 IMPRESSION: 1. 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 2. No significant arterial occlusive disease to the left lower limb with normal left TBI. Labs Labs: Laboratory Results - last 24 hr 08/15/24 08/15/24 08/16/24 17:04 19:50 07:38 POC Capillary Glucose 117 H 206 H 129 H 08/16/24 11:17 POC Capillary Glucose 213 H Quality VTE Prophylaxis VTE prophylaxis: pharmacologic ordered
[2024-08-16 16:56] LABS: Glucose Point of Care 248 mg/dl (65-105)
[2024-08-16 19:52] VITALS: BP 134/79; PULSE 75; RESP 16; TEMP 37.2; O2SAT 98
[2024-08-16] MEDS: INSULIN GLARGINE (*BKC) 100 UNITS/ML 7 UNITS SUB-Q (21:13)
[2024-08-16 21:23] LABS: Glucose Point of Care 214 mg/dl (65-105)
[2024-08-16 21:40] LABS: Glucose Point of Care 208 mg/dl (65-105)
[2024-08-17] MEDS: VANCOMYCIN 1,000 MG/NS 250 ML 1,000 MG/250 ML BAG 250 MG IVPB (00:05)
[2024-08-17 04:16] VITALS: BP 144/76; PULSE 82; RESP 16; TEMP 36.8; O2SAT 93
[2024-08-17 05:16] LABS: Hematocrit 29.7 % (42.0-52.0); Hemoglobin 9.7 g/dL (14.0-18.0); Mean Corpuscular HGB Conc 32.7 g/dl (32-36); Mean Corpuscular Hemoglobin 28.9 pg (26-34); Mean Corpuscular Volume 88.4 fl (80-100); Mean Platelet Volume 9.4 fl (7.4-10.4); Platelet Count Result 284 k/mm3 (150-375); Red Blood Count 3.36 M/mm3 (4.6-6.20); White Blood Count 6.9 K/mm3 (4.5-10.0)
[2024-08-17 05:28] LABS: Anion Gap 5 mmol/L (4-12); Blood Urea Nitrogen 16 mg/dL (9-20); Calcium 7.3 mg/dL (8.4-10.2); Carbon Dioxide 26 mmol/L (22-30); Chloride 103 mmol/L (98-107); Estimated CRCL calculation 81 ml/min; Estimated Glomerular Filt Rate > 60; Glucose 262 mg/dL (65-110); Potassium 4.1 mmol/L (3.4-5.0); Sodium 134 mmol/L (137-145)
[2024-08-17] MEDS: CEFEPIME 2 GM/NS 50 ML 2 GM/50 ML BAG IVPB ×2 (06:09→17:34)
[2024-08-17] MEDS: metroNIDAZOLE 500 MG/ISO 100ML 500 MG/100 ML BAG 100 MG IVPB ×3 (06:12→21:29)
[2024-08-17 06:39] LABS: Vancomycin Trough 24.2 ug/mL (10.0-20.0)
[2024-08-17 07:30] LABS: Glucose Point of Care 246 mg/dl (65-105)
[2024-08-17] MEDS: INSULIN ASPART (*BKC) 100 UNITS/ML SUB-Q ×4 (08:42→21:31)
[2024-08-17] MEDS: DOXYCYCLINE HYCLATE 100 MG TABLET PO ×2 (08:43→21:26)
[2024-08-17 11:45] LABS: Glucose Point of Care 240 mg/dl (65-105)
[2024-08-17] MEDS: VANCOMYCIN 1,500 MG/NS 500 ML 1,500 MG/500 ML BAG 250 MG IVPB ×2 (12:25→23:45)
[2024-08-17 13:52] VITALS: BP 138/86; PULSE 86; RESP 16; TEMP 36.8; O2SAT 95
--- NOTE | 2024-08-17 14:12 | PM.IMPN ---
Progress Note: A&P Assessment and Plan (1) Infected ulcer of skin: Qualifiers: Non-pressure ulcer stage: unspecified non-pressure ulcer stage Qualified Code(s): L98.499 - Non-pressure chronic ulcer of skin of other sites with unspecified severity; L08.9 - Local infection of the skin and subcutaneous tissue, unspecified Code(s): L98.499 - Non-pressure chronic ulcer of skin of other sites with unspecified severity; L08.9 - Local infection of the skin and subcutaneous tissue, unspecified Status: Acute Assessment and Plan: Patient presents with right foot wound and has developed sepsis symptoms. Lactic normal but with elevated WBC, fever and tachycardia. Rt Foot XR showed no acute osseous abnormality. Rt Ankle XR showed no definite acute osseous abnormality of the right ankle but with small bony fragment near the fibular head. Soft tissue swelling over the medial and lateral malleoli. LE venous doppler negative for DVT. Started on cefepime, vancomycin, and Flagyl on 08/12. BCx NGTD WCx pending. WBC normal now and fever curve better. General surgery consult with plans for debridement in the OR. LE arteial dopplers pending. Continue current wound care. Continue IV abx. (2) Pneumonia: Code(s): J18.9 - Pneumonia, unspecified organism Status: Acute Assessment and Plan: CXR showing diffuse ground glass and airspace opacities in the right lung concerning for PNA. COVID, influenza and RSV negative. MRSA nasal swab negative Continue IV abx as above. Doxy added for atypical coverage Sputum ordered (3) Sepsis: Code(s): A41.9 - Sepsis, unspecified organism Status: Acute Assessment and Plan: As above (4) Diabetes: Qualifiers: Diabetes mellitus type: type 2 Diabetes mellitus roasterman insulin use: without long-term use Diabetes mellitus complication status: with skin complications Diabetes mellitus complication detail: with foot ulcer Qualified Code(s): E11.621 - Type 2 diabetes mellitus with foot ulcer; L97.509 - Non-pressure chronic ulcer of other part of unspecified foot with unspecified severity Code(s): E11.9 - Type 2 diabetes mellitus without complications Status: Acute Assessment and Plan: Initially unclear if DM Type 1 vs 2. No history of DKA. Antibody testing in January of 2023 was negative. 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 Initial glucose 692, no anion gap. He is noncompliant with Lantus. He was given regular insulin 10 units IV push with improvement. Lantus resumed The patient's blood glucose was reviewed on 08/14 Glucose better overall but still poorly controlled. Continue AccuCheks covering with sliding scale. Hypoglycemia protocol available as needed. Patient declines Dietitian and clinical document improvement educator consults Resume his normal dose of Lantus since no longer NPO (5) Anemia: Code(s): D64.9 - Anemia, unspecified Status: Acute Assessment and Plan: Hgb 11.1 on admission but dropped to 9 range. No obvious acute blood loss. Iron 32/185 with iroan sat 17%. Ferritin 285. B12/folate normal. Current inflammatory condition may be skewing these findings Follow HH Plan Hyponatremia - Na 122 on admission but 134 when corrected for hyperglycemia. Sodium better as glucose becomes better controlled. Follow. patient with history of uncontrol DM with A1c of 10.9 presented with planter ulcer of the right foot with fat layer exposed seen by surgery service s/p surgical debridement POD # 2 had dressing changed, wound is concerning for vascular compromise as well of necrosis of tissue, discuss with surgery service patient may need additional surgery. wound culture is growing multioorganism culture patient is treated with Cefepime, Flagyl and vancomycin patient stats he is feeling better, will continue to monitor and further recommendation to follow DVT Prophylaxis: Lovenox SQ Code Status: Full code Subjective Date/time seen: 08/17/24 14:12 Interval history: 29yo male with diabetes (presumed type 2) who presents here with a right foot wound. No CP or SOB. Slept off and on patient with history of uncontrol DM with A1c of 10.9 presented with planter ulcer of the right foot with fat layer exposed seen by surgery service s/p surgical debridement POD # 2 had dressing changed, wound is concerning for vascular compromise as well of necrosis of tissue, discuss with surgery service patient may need additional surgery. wound culture is growing multioorganism culture patient is treated with Cefepime, Flagyl and vancomycin patient stats he is feeling better, will continue to monitor and further recommendation to follow Review of Systems Review of Systems: All systems reviewed & are unremarkable except as noted in HPI and below Objective Data Vital Signs Vital Signs: Vital Signs - 24 hr 08/16/24 19:52 08/17/24 04:16 08/17/24 13:52 Temperature 37.2 C 36.8 C 36.8 C Pulse Rate 75 82 86 Respiratory Rate 16 16 16 Blood Pressure 134/79 144/76 H 138/86 Pulse Oximetry 98 93 95 Intake/Output Intake/Output: Intake & Output 08/14/24 08/15/24 08/16/24 08/17/24 23:59 23:59 23:59 23:59 Intake Total 2780 1740 2174 1761.7 Output Total 770 Balance 2780 970 2174 1761.7 Meds/Results Medications: Active Medications Generic Name Dose Route Start Last Admin Trade Name Freq PRN Reason Stop Dose Admin Acetaminophen 650 mg 08/12/24 19:17 08/13/24 21:08 Acetaminophen 325 Mg Tablet PO 650 mg Q4H PRN Administration Mild Pain (1-3) or Fever Dextrose 12.5 gm 08/12/24 17:49 Dextrose 50% 25 Gm/50 Ml Syringe IV PUSH PRN PRN Hypoglycemia Protocol Doxycycline Hyclate 100 mg 08/13/24 21:00 08/17/24 08:43 Doxycycline Hyclate 100 Mg Tablet PO 08/18/24 09:01 100 mg Q12HR LIZET Administration Enoxaparin Sodium 40 mg 08/13/24 09:00 08/17/24 08:44 Enoxaparin 40 Mg/0.4 Ml Syringe SUB-Q Not Given DAILY LIZET Glucagon 1 mg 08/12/24 17:49 Glucagon For Inj 1 Mg Vial IM PRN PRN Hypoglycemia Protocol Glucose 15 gm 08/12/24 17:49 Glucose Oral Gel 15 Gm Of Glucse In 37.5 Gm Tube PO PRN PRN Hypoglycemia Protocol Cefepime HCl 2 gm in 50 mls @ 100 mls/hr 08/13/24 06:00 08/17/24 06:09 Maxipime 2 Gm/Ns 50 Ml IVPB 100 mls/hr Q12H LIZET Administration Metronidazole 500 mg in 100 mls @ 100 mls/hr 08/13/24 06:00 08/17/24 06:13 Flagyl 500 Mg/Iso Soln 100 Ml IVPB 0 mls/hr Q8H LIZET Infusion Dextrose 1,000 mls @ 100 mls/hr 08/12/24 17:49 Dextrose 5% 1,000 Ml IVPB PRN PRN Hypoglycemia Protocol Vancomycin HCl 1,500 mg in 500 mls @ 250 mls/hr 08/17/24 12:00 08/17/24 12:25 Vancomycin 1,500 Mg/Ns 500 Ml IVPB 250 mls/hr Q12H LIZET Administration Insulin Aspart 3 - 6 units 08/13/24 08:00 08/17/24 12:23 Insulin Aspart (*Bkc) 100 Units/Ml SUB-Q 3 units TIDWM LIZET Administration Protocol Insulin Aspart 1 - 3 units 08/12/24 21:00 08/16/24 21:10 Insulin Aspart (*Bkc) 100 Units/Ml SUB-Q 1 units HS LIZET Administration Protocol Insulin Glargine 7 units 08/15/24 21:00 08/16/24 21:13 Insulin Glargine (*Bkc) 100 Units/Ml SUB-Q 7 units HS LIZET Administration Morphine Sulfate 2 mg 08/12/24 19:17 Morphine Sulfate (*Crx) 2 Mg/Ml Inj IV PUSH Q4H PRN Pain Rated 7-10 Oxycodone/Acetaminophen 1 tablet 08/15/24 16:10 Oxycodone/Acetaminophen (*Crx) 5-325 Mg Tablet PO Q4H PRN Pain Rated 4-6 Radiology Results: ITS Impressions Foot X-Ray 08/12/24 16:39 IMPRESSION: No acute osseous abnormality of the right foot. Ankle X-Ray 08/12/24 16:41 IMPRESSION: No definite acute osseous abnormality of the right ankle. Small bony fragment near to the fibular head. Soft tissue swelling over the medial and lateral malleoli. Chest X-Ray 08/13/24 12:46 IMPRESSION: Diffuse groundglass and airspace disease in the right lung, concerning for pneumonia. Short-term follow-up chest radiograph is recommended after appropriate clinical therapy. Venous Doppler Study 08/13/24 19:13 IMPRESSION: Negative bilateral lower extremity venous US. No deep vein thrombosis. Right inguinal enlarged lymph node. Clinical correlation advised. Doppler Study Ultrasound 08/15/24 08:35 IMPRESSION: 1. 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 2. No significant arterial occlusive disease to the left lower limb with normal left TBI. Labs Labs: Laboratory Results - last 24 hr 08/16/24 08/16/24 08/16/24 16:50 19:51 21:09 WBC RBC Hgb Hct MCV MCH MCHC RDW Plt Count MPV Sodium Potassium Chloride Carbon Dioxide Anion Gap BUN Creatinine Estim Creat Clear Calc Estimated GFR Glucose POC Capillary Glucose 248 H 208 H 214 H Calcium Magnesium Vancomycin Trough 08/17/24 08/17/24 08/17/24 04:58 07:25 11:39 WBC 6.9 RBC 3.36 L Hgb 9.7 L Hct 29.7 L MCV 88.4 MCH 28.9 MCHC 32.7 RDW 12.0 Plt Count 284 MPV 9.4 Sodium 134 L Potassium 4.1 Chloride 103 Carbon Dioxide 26 Anion Gap 5 BUN 16 Creatinine 1.02 Estim Creat Clear Calc 81 Estimated GFR > 60 Glucose 262 H POC Capillary Glucose 246 H 240 H Calcium 7.3 L Magnesium 2.0 Vancomycin Trough 24.2 H Quality VTE Prophylaxis VTE prophylaxis: pharmacologic ordered
--- NOTE | 2024-08-17 15:56 | PM.PNGS ---
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 Wound has a small area of carballo tissue near the 4th toe on the plantar aspect of the wound. Continue IV antibiotics and local wound care. Wound cultures on admission showing growth of prevotella species, Staph aureus, and group B strep. Wound cultures from surgery are still pending. (2) Diabetic foot infection: Code(s): E11.628 - Type 2 diabetes mellitus with other skin complications; L08.9 - Local infection of the skin and subcutaneous tissue, unspecified Status: Acute Assessment and Plan: Continue IV antibiotics. Elevate right lower extremity when at rest. Instructed him to use heel touch weight-bearing to the right lower extremity when getting up to the bathroom. (3) Peripheral vascular disease in diabetes mellitus: Code(s): E11.51 - Type 2 diabetes mellitus with diabetic peripheral angiopathy without gangrene Status: Chronic Assessment and Plan: Arterial Doppler showed mildly decreased right ALESSIA and TBI. Hopeful that this will be adequate perfusion for wound healing. (4) Poorly controlled diabetes mellitus: Code(s): E11.65 - Type 2 diabetes mellitus with hyperglycemia Status: Chronic Assessment and Plan: Management per hospitalist (5) Fever: Qualifiers: Fever type: unspecified Qualified Code(s): R50.9 - Fever, unspecified Code(s): R50.9 - Fever, unspecified Status: Acute Assessment and Plan: Resolved. Afebrile over the past 24 hours (6) Right pulmonary infiltrate on CXR: Code(s): R91.8 - Other nonspecific abnormal finding of lung field Status: Acute Assessment and Plan: Abnormal chest x-ray on admission but asymptomatic. Continue antibiotics. Plan I have discussed the patient's case and plan of care with Dr. Garcia. Subjective Subjective Date/Time Seen: 08/17/24 15:56 Post Op day: 2 (Excisional debridement right foot including skin, subcutaneous, muscle, and bone) Patient reports: no new complaints and afebrile Interval history: No specific complaints at this time. Denies having any pain in his right lower extremity due to neuropathy Exam Narrative: Right foot dressing removed. Wound appears to have a few small areas of pink granulating tissue, bone exposed at the head of the 3rd metatarsal, there is an area of carballo soft tissue at the plantar aspect of the wound near the 4th toe, no purulent drainage. Overall redness and swelling improved. Color of his 4th toe is improving and is more pink today with normal capillary refill. Objective Data Vital Signs Vital Signs: Vital Signs - 24 hr 08/16/24 19:52 08/17/24 04:16 08/17/24 13:52 Temperature 98.9 F 98.3 F 98.2 F Pulse Rate 75 82 86 Respiratory Rate 16 16 16 Blood Pressure 134/79 144/76 H 138/86 Pulse Oximetry 98 93 95 Intake/Output Intake/Output: Intake & Output 08/14/24 08/15/24 08/16/24 08/17/24 23:59 23:59 23:59 23:59 Intake Total 2780 1740 2174 1761.7 Output Total 770 Balance 2780 970 2174 1761.7 Meds/Results Medications: Active Medications Generic Name Dose Route Start Last Admin Trade Name Freq PRN Reason Stop Dose Admin Acetaminophen 650 mg 08/12/24 19:17 08/13/24 21:08 Acetaminophen 325 Mg Tablet PO 650 mg Q4H PRN Administration Mild Pain (1-3) or Fever Dextrose 12.5 gm 08/12/24 17:49 Dextrose 50% 25 Gm/50 Ml Syringe IV PUSH PRN PRN Hypoglycemia Protocol Doxycycline Hyclate 100 mg 08/13/24 21:00 08/17/24 08:43 Doxycycline Hyclate 100 Mg Tablet PO 08/18/24 09:01 100 mg Q12HR LIZET Administration Enoxaparin Sodium 40 mg 08/13/24 09:00 08/17/24 08:44 Enoxaparin 40 Mg/0.4 Ml Syringe SUB-Q Not Given DAILY LIZET Glucagon 1 mg 08/12/24 17:49 Glucagon For Inj 1 Mg Vial IM PRN PRN Hypoglycemia Protocol Glucose 15 gm 08/12/24 17:49 Glucose Oral Gel 15 Gm Of Glucse In 37.5 Gm Tube PO PRN PRN Hypoglycemia Protocol Cefepime HCl 2 gm in 50 mls @ 100 mls/hr 08/13/24 06:00 08/17/24 06:09 Maxipime 2 Gm/Ns 50 Ml IVPB 100 mls/hr Q12H LIZET Administration Metronidazole 500 mg in 100 mls @ 100 mls/hr 08/13/24 06:00 08/17/24 15:47 Flagyl 500 Mg/Iso Soln 100 Ml IVPB 100 mls/hr Q8H LIZET Administration Dextrose 1,000 mls @ 100 mls/hr 08/12/24 17:49 Dextrose 5% 1,000 Ml IVPB PRN PRN Hypoglycemia Protocol Vancomycin HCl 1,500 mg in 500 mls @ 250 mls/hr 08/17/24 12:00 08/17/24 12:25 Vancomycin 1,500 Mg/Ns 500 Ml IVPB 250 mls/hr Q12H LIZET Administration Insulin Aspart 3 - 6 units 08/13/24 08:00 08/17/24 12:23 Insulin Aspart (*Bkc) 100 Units/Ml SUB-Q 3 units TIDWM LIZET Administration Protocol Insulin Aspart 1 - 3 units 08/12/24 21:00 08/16/24 21:10 Insulin Aspart (*Bkc) 100 Units/Ml SUB-Q 1 units HS LIZET Administration Protocol Insulin Glargine 7 units 08/15/24 21:00 08/16/24 21:13 Insulin Glargine (*Bkc) 100 Units/Ml SUB-Q 7 units HS LIZET Administration Morphine Sulfate 2 mg 08/12/24 19:17 Morphine Sulfate (*Crx) 2 Mg/Ml Inj IV PUSH Q4H PRN Pain Rated 7-10 Oxycodone/Acetaminophen 1 tablet 08/15/24 16:10 Oxycodone/Acetaminophen (*Crx) 5-325 Mg Tablet PO Q4H PRN Pain Rated 4-6 Radiology Results: ITS Impressions Foot X-Ray 08/12/24 16:39 IMPRESSION: No acute osseous abnormality of the right foot. Ankle X-Ray 08/12/24 16:41 IMPRESSION: No definite acute osseous abnormality of the right ankle. Small bony fragment near to the fibular head. Soft tissue swelling over the medial and lateral malleoli. Chest X-Ray 08/13/24 12:46 IMPRESSION: Diffuse groundglass and airspace disease in the right lung, concerning for pneumonia. Short-term follow-up chest radiograph is recommended after appropriate clinical therapy. Venous Doppler Study 08/13/24 19:13 IMPRESSION: Negative bilateral lower extremity venous US. No deep vein thrombosis. Right inguinal enlarged lymph node. Clinical correlation advised. Doppler Study Ultrasound 08/15/24 08:35 IMPRESSION: 1. 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 2. No significant arterial occlusive disease to the left lower limb with normal left TBI. Labs Labs: Laboratory Results - last 24 hr 08/16/24 08/16/24 08/16/24 16:50 19:51 21:09 WBC RBC Hgb Hct MCV MCH MCHC RDW Plt Count MPV Sodium Potassium Chloride Carbon Dioxide Anion Gap BUN Creatinine Estim Creat Clear Calc Estimated GFR Glucose POC Capillary Glucose 248 H 208 H 214 H Calcium Magnesium Vancomycin Trough 08/17/24 08/17/24 08/17/24 04:58 07:25 11:39 WBC 6.9 RBC 3.36 L Hgb 9.7 L Hct 29.7 L MCV 88.4 MCH 28.9 MCHC 32.7 RDW 12.0 Plt Count 284 MPV 9.4 Sodium 134 L Potassium 4.1 Chloride 103 Carbon Dioxide 26 Anion Gap 5 BUN 16 Creatinine 1.02 Estim Creat Clear Calc 81 Estimated GFR > 60 Glucose 262 H POC Capillary Glucose 246 H 240 H Calcium 7.3 L Magnesium 2.0 Vancomycin Trough 24.2 H
[2024-08-17 16:23] LABS: Glucose Point of Care 244 mg/dl (65-105)
[2024-08-17 19:33] VITALS: BP 138/77; PULSE 76; RESP 16; TEMP 36.4; O2SAT 98
--- NOTE | 2024-08-17 20:04 | PC.NURSE ---
Preliminary wound culture results posted 08/17 11:08, no prior documentation confirming provider notification. Dr. Garcia called and notified of results. No new orders.
[2024-08-17 20:27] LABS: Glucose Point of Care 268 mg/dl (65-105)
[2024-08-17 21:15] VITALS: O2SAT 97
[2024-08-17] MEDS: INSULIN GLARGINE (*BKC) 100 UNITS/ML 7 UNITS SUB-Q (21:31)
[2024-08-18] VITALS (16 sets, daily range): BP systolic 108–167; BP diastolic 62–91; PULSE 73–112; RESP 12–30; TEMP 36.1–37.7; O2SAT 90–100
[2024-08-18 05:35] LABS: Anion Gap 6 mmol/L (4-12); Blood Urea Nitrogen 13 mg/dL (9-20); Calcium 7.9 mg/dL (8.4-10.2); Carbon Dioxide 26 mmol/L (22-30); Chloride 105 mmol/L (98-107); Estimated CRCL calculation 95 ml/min; Estimated Glomerular Filt Rate > 60; Glucose 140 mg/dL (65-110); Magnesium 2.1 mg/dL (1.6-2.3); Potassium 3.7 mmol/L (3.4-5.0); Sodium 137 mmol/L (137-145)
[2024-08-18] MEDS: CEFEPIME 2 GM/NS 50 ML 2 GM/50 ML BAG IVPB ×2 (05:55→17:27)
[2024-08-18] MEDS: metroNIDAZOLE 500 MG/ISO 100ML 500 MG/100 ML BAG 100 MG IVPB ×3 (06:48→21:00)
[2024-08-18 07:44] LABS: Glucose Point of Care 131 mg/dl (65-105)
--- NOTE | 2024-08-18 07:54 | PM.PNGS ---
Progress Note: A&P Assessment and Plan (1) Necrotizing soft tissue infection: Code(s): M79.89 - Other specified soft tissue disorders Status: Acute Assessment and Plan: Very much improved. Extensive debridement was performed 3 days ago on 08/15/2024. Cultures show a polymicrobial infection including prevotella, MSSA, Streptococcus. Wound still has significant debris in the wound bed. Third toe a nonfunctional appendage due to debridement of 3rd metatarsal. Will take patient back to surgery today for open amputation right 3rd toe and additional debridement of wound bed. Discussed with patient who agrees. Will discontinue vancomycin as staff is methicillin sensitive. (2) Diabetic foot infection: Code(s): E11.628 - Type 2 diabetes mellitus with other skin complications; L08.9 - Local infection of the skin and subcutaneous tissue, unspecified Status: Acute Assessment and Plan: Improving. Discontinue vancomycin (3) Poorly controlled diabetes mellitus: Code(s): E11.65 - Type 2 diabetes mellitus with hyperglycemia Status: Chronic Assessment and Plan: Blood sugars still elevated. Will no doubt continued to be a problem. Subjective Subjective Date/Time Seen: 08/18/24 07:54 Post Op day: 3 Patient reports: no new complaints, tolerating a regular diet and afebrile Exam Extrem: Right lower extremity: foot (Improved but fibrin is tissue at base and 3rd toe nonfunctional) Details: tenderness (Minimal at wound) and no edema; no unusual warmth Objective Data Vital Signs Vital Signs: Vital Signs - 24 hr 08/17/24 08:43 08/17/24 13:52 08/17/24 19:33 Temperature 36.8 C 36.4 C Pulse Rate 86 76 Respiratory Rate 16 16 Blood Pressure 138/86 138/77 Pulse Oximetry 95 98 Oxygen Delivery Room Air 08/17/24 21:15 08/18/24 05:12 Temperature 36.6 C Pulse Rate 76 Respiratory Rate 16 Blood Pressure 130/75 Pulse Oximetry 97 98 Oxygen Delivery Room Air Intake/Output Intake/Output: Intake & Output 08/15/24 08/16/24 08/17/24 08/18/24 23:59 23:59 23:59 23:59 Intake Total 1740 2174 4485.7 1210 Output Total 770 Balance 970 2174 4485.7 1210 Meds/Results Medications: Active Medications Generic Name Dose Route Start Last Admin Trade Name Freq PRN Reason Stop Dose Admin Acetaminophen 650 mg 08/12/24 19:17 08/13/24 21:08 Acetaminophen 325 Mg Tablet PO 650 mg Q4H PRN Administration Mild Pain (1-3) or Fever Dextrose 12.5 gm 08/12/24 17:49 Dextrose 50% 25 Gm/50 Ml Syringe IV PUSH PRN PRN Hypoglycemia Protocol Doxycycline Hyclate 100 mg 08/13/24 21:00 08/17/24 21:26 Doxycycline Hyclate 100 Mg Tablet PO 08/18/24 09:01 100 mg Q12HR LIZET Administration Enoxaparin Sodium 40 mg 08/13/24 09:00 08/17/24 08:44 Enoxaparin 40 Mg/0.4 Ml Syringe SUB-Q Not Given DAILY LIZET Glucagon 1 mg 08/12/24 17:49 Glucagon For Inj 1 Mg Vial IM PRN PRN Hypoglycemia Protocol Glucose 15 gm 08/12/24 17:49 Glucose Oral Gel 15 Gm Of Glucse In 37.5 Gm Tube PO PRN PRN Hypoglycemia Protocol Cefepime HCl 2 gm in 50 mls @ 100 mls/hr 08/13/24 06:00 08/18/24 05:55 Maxipime 2 Gm/Ns 50 Ml IVPB 100 mls/hr Q12H LIZET Administration Metronidazole 500 mg in 100 mls @ 100 mls/hr 08/13/24 06:00 08/18/24 06:48 Flagyl 500 Mg/Iso Soln 100 Ml IVPB 100 mls/hr Q8H LIZET Administration Dextrose 1,000 mls @ 100 mls/hr 08/12/24 17:49 Dextrose 5% 1,000 Ml IVPB PRN PRN Hypoglycemia Protocol Vancomycin HCl 1,500 mg in 500 mls @ 250 mls/hr 08/17/24 12:00 08/18/24 01:45 Vancomycin 1,500 Mg/Ns 500 Ml IVPB Infused Q12H LIZET Infusion Insulin Aspart 3 - 6 units 08/13/24 08:00 08/18/24 07:52 Insulin Aspart (*Bkc) 100 Units/Ml SUB-Q Not Given TIDWM LIZET Protocol Insulin Aspart 1 - 3 units 08/12/24 21:00 08/17/24 21:31 Insulin Aspart (*Bkc) 100 Units/Ml SUB-Q 2 units HS LIZET Administration Protocol Insulin Glargine 7 units 08/15/24 21:00 08/17/24 21:31 Insulin Glargine (*Bkc) 100 Units/Ml SUB-Q 7 units HS LIZET Administration Morphine Sulfate 2 mg 08/12/24 19:17 Morphine Sulfate (*Crx) 2 Mg/Ml Inj IV PUSH Q4H PRN Pain Rated 7-10 Oxycodone/Acetaminophen 1 tablet 08/15/24 16:10 Oxycodone/Acetaminophen (*Crx) 5-325 Mg Tablet PO Q4H PRN Pain Rated 4-6 Radiology Results: ITS Impressions Foot X-Ray 08/12/24 16:39 IMPRESSION: No acute osseous abnormality of the right foot. Ankle X-Ray 08/12/24 16:41 IMPRESSION: No definite acute osseous abnormality of the right ankle. Small bony fragment near to the fibular head. Soft tissue swelling over the medial and lateral malleoli. Chest X-Ray 08/13/24 12:46 IMPRESSION: Diffuse groundglass and airspace disease in the right lung, concerning for pneumonia. Short-term follow-up chest radiograph is recommended after appropriate clinical therapy. Venous Doppler Study 08/13/24 19:13 IMPRESSION: Negative bilateral lower extremity venous US. No deep vein thrombosis. Right inguinal enlarged lymph node. Clinical correlation advised. Doppler Study Ultrasound 08/15/24 08:35 IMPRESSION: 1. 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 2. No significant arterial occlusive disease to the left lower limb with normal left TBI. Labs Labs: Laboratory Results - last 24 hr 08/17/24 08/17/24 08/17/24 11:39 16:17 19:39 Sodium Potassium Chloride Carbon Dioxide Anion Gap BUN Creatinine Estim Creat Clear Calc Estimated GFR Glucose POC Capillary Glucose 240 H 244 H 268 H Calcium Magnesium 08/18/24 08/18/24 05:03 07:39 Sodium 137 Potassium 3.7 Chloride 105 Carbon Dioxide 26 Anion Gap 6 BUN 13 Creatinine 0.87 Estim Creat Clear Calc 95 Estimated GFR > 60 Glucose 140 H POC Capillary Glucose 131 H Calcium 7.9 L Magnesium 2.1
[2024-08-18] MEDS: DOXYCYCLINE HYCLATE 100 MG TABLET PO (08:16)
[2024-08-18 11:20] LABS: Glucose Point of Care 126 mg/dl (65-105)
--- NOTE | 2024-08-18 13:05 | PC.NURSE ---
Report given to Mylene MOYER Preop. To OR via wheelchair.
[2024-08-18] MEDS: LACTATED RINGERS 1,000 ML 30 ML IV CONT (13:30)
[2024-08-18 13:32] LABS: Glucose Point of Care 109 mg/dl (65-105)
--- NOTE | 2024-08-18 14:22 | P.PNAN_ITS ---
Anes - Initial Pre Proc Eval Procedure: Operation Date: 08/15/24 14:30 Proposed Procedures p Debridement Right Foot Ulcer - Kraig Garcia MD Operation Date: 08/18/24 14:30 Proposed Procedures p Open Amputation Right Third Toe, Debridement Right Foot Wound - Kraig Garcia MD Date/Time: 08/18/24 14:22 Surgeon: Otilio Barnett MD Pre Op Diagnosis: Infected diabetic foot ulcer Patient Data Age: 29 Gender: M Height: 1.65 m Weight: 65.4 kg Last Vital Signs Temp 36.6 C 08/18/24 05:12 Pulse 76 08/18/24 05:12 Resp 16 08/18/24 07:48 BP 130/75 08/18/24 05:12 Pulse Ox 98 08/18/24 07:48 O2 Del Method Room Air 08/18/24 07:48 O2 Flow Rate 8 08/15/24 15:45 Allergies Allergy/AdvReac Type Severity Reaction Status Date / Time No Known Allergies Allergy Verified 08/18/24 13:36 Home Medications ?Medication ?Instructions ?Recorded ?Confirmed ?Type insulin glargine 100 unit/mL (3 7 unit (0.07 mL) subcut HS #15 mL 02/24/23 08/12/24 Rx mL) subcutaneous pen Laboratory Tests 08/17/24 08/17/24 08/18/24 16:17 19:39 05:03 Sodium 137 mmol/L (137-145) Potassium 3.7 mmol/L (3.4-5.0) Chloride 105 mmol/L (98-107) Carbon Dioxide 26 mmol/L (22-30) Anion Gap 6 mmol/L (4-12) BUN 13 mg/dL (9-20) Creatinine 0.87 mg/dL (0.7-1.3) Estim Creat Clear Calc 95 ml/min Estimated GFR > 60 (59 - ) Glucose 140 H mg/dL (65-110) POC Capillary Glucose 244 H mg/dl 268 H mg/dl (65-105) (65-105) Calcium 7.9 L mg/dL (8.4-10.2) Magnesium 2.1 mg/dL (1.6-2.3) 08/18/24 08/18/24 08/18/24 07:39 11:14 13:30 Sodium Potassium Chloride Carbon Dioxide Anion Gap BUN Creatinine Estim Creat Clear Calc Estimated GFR Glucose POC Capillary Glucose 131 H mg/dl 126 H mg/dl 109 H mg/dl (65-105) (65-105) (65-105) Calcium Magnesium Patient hx anesthesia problems: none Family hx anesthesia problems: none Results Review: All pre-operative results and documents have been reviewed as part of the pre- operative evaluation. [facility] Past Medical History Medical History (Updated 08/18/24 @ 14:23 by Chandan Caraballo MD) Amputation toe Diabetes poorly controlled with neuropathy Social History Social History Smoking status: Current every day smoker Tobacco type: e-cigarettes/vaping Second hand tobacco smoke exposure: No Alcohol intake: current Drinks per week: 1 Substance use: current Substance use type: marijuana Other substance usage details: Uses alcohol and substances rarely/socially Last use: 01/23/23 Do You Feel Safe in your Home?: Yes Lack of Transportation: No Lack of Food: Sometimes True Current Housing: I Have Housing Concerned About Future Housing: No Difficulty Paying Gas/Electric Bills: No Difficulty Paying for Meds: No Currently Unemployed: No Education: Decline to Answer Difficulty w/ Childcare or Family Care: No Spiritual care concerns: No Anes - Eval Final PreProcedure Day of Procedure 08/18/24 14:22 Patient weight: normal Heart: regular rate and rhythm Lungs: clear to auscultation Airway: Mallampati scale class II and special considerations poor dentition Neurological: alert and oriented Last oral intake: >/= 8 hours ASA classification: IV Emergent: no Anesthetic plan: proceed Anesthesia type and monitoring: general LMA and standard monitoring Results Review: All pre-operative results and documents have been reviewed as part of the pre- operative evaluation. Informed Consent: The patient's anesthetic plan and its attendant risks and benefits were discussed with the patient/family/POA. Questions were solicited and answers provided to the satisfaction of the patient/family/POA.
--- NOTE | 2024-08-18 14:38 | WPDHPUPDATE1 ---
History and Physical Update Update Date/Time: 08/18/24 14:38 History and Physical has been reviewed, including an updated exam of the patient. There are NO changes in the patient's condition. Risks, benefits, and alternatives have been discussed and questions answered. Patient agrees to proceed with procedure.
[2024-08-18] MEDS: LIDOCAINE 1% LOCAL INJ 10 ML VIAL INFILTRATE (15:23)
[2024-08-18] MEDS: SODIUM CHLORIDE 0.9% IV 500 ML 30 ML IV CONT (15:53)
[2024-08-18 15:57] LABS: Glucose Point of Care 104 mg/dl (65-105)
--- NOTE | 2024-08-18 15:59 | P.OP_ITS ---
Procedure Note - Detailed Date of Procedure 08/18/24 Pre-op Diagnosis Necrotizing soft tissue infection right foot, nonfunctioning 3rd toe Post-op Diagnosis Same Procedure Performed Transmetatarsal open amputation right 3rd toe; debridement skin subcutaneous muscle 2 x 1 x 0.5 cm Surgeon Kraig Garcia MD Consumer Marketing Manager [address] Anesthesia General (LMA) and Local Indications Patient presented to the emergency room with a plantar ulcer and evidence of a diabetic foot infection. His diabetes was not controlled and blood sugar were initially in the 600s. After vascular evaluation, he was taken to the operating room on 08/15/2024. Debridement showed a necrotizing soft tissue infection that spread both from the plantar ulcer in the 3rd metatarsal through the webspace between the 3rd and 4th toes and included tissue on the dorsal instep of the did foot. Extensive debridement was required and the 3rd metatarsal bone appeared to have osteomyelitis. Pathology on the 3rd metatarsal showed acute inflammation and necrosis with no osteomyelitis. He has been receiving dressing changes and antibiotics. Wound cultures show methicillin sensitive Staph aureus, streptococci, prevotella. He has some additional necrotic debris as well as purulent appearing drainage in the wound. They 3rd toe is nonfunctional. He is taken to surgery now or 3rd toe open amputation and debridement of the previous wound. Findings Third toe was viable but had no motor control for stability. The 3rd metatarsal head was visible in the wound and was also removed. Necrotic debris and some evidence of liquefaction necrosis was found and removed entirely. Wound appeared to be well vascularized. Description of Procedure Patient was taken to surgery and anesthesia was introduced. The right foot was prepped and draped. Local anesthetic using 0.5% Marcaine plain was infiltrated into the base of the right 3rd toe on both the plantar space, web space, and anterior aspect. I then amputated the right 3rd toe including some additional necrotic tissue from the distal plantar skin and subcutaneous. Cautery was used to achieve hemostasis. I then used sharp dissection to remove additional purulent fluid and necrotic infected tissue. This was particularly evident under the anterior skin at the base of the 4th toe. There were other areas of necrotic tissue and fibrin is debrided. These were all removed. The 3rd metatarsal was protruding into the wound. I dissected around the 3rd metatarsal head. I used the periosteal elevator to expose the entire 3rd metatarsal head. I then used rongeur to remove the head of the 3rd metatarsal. It was a soft bone and was able to be removed fairly easily. I used a rongeurs until the shaft of the 3rd metatarsal was smoothed. Some tendinous and ligamentous tissue was removed. All the healthy tissue seem to be bleeding with adequate vascularity. The wound was irrigated and cautery was used for hemostasis. We then packed the wound with 1 in iodoform Nu gauze. Bulky fluff dressing and Kerlix wrap were then applied. Patient was awakened and taken to recovery in good condition. Sponge and needle counts were correct x2. Estimated Blood Loss -10 Urine Output 770 Drains No Packing Yes (1 in iodoform Nu Gauze) Pathology None sent Complications None Condition Stable Disposition PACU [facility] Billing Surgery - Charge Forward: Surgery Billing (Transmetatarsal open amputation right 3rd toe; debridement skin subcutaneous muscle 2 x 1 x 0.5 cm)
[2024-08-18] MEDS: fentaNYL CITRATE INJ (*CRX) 100 MCG/2 ML VIAL 25 MCG IV PUSH ×2 (16:40→16:43)
[2024-08-18] MEDS: ONDANSETRON INJ 4 MG/2 ML VIAL IV PUSH (17:12)
--- NOTE | 2024-08-18 17:17 | PC.NURSE ---
Returned from OR via stretcher.
[2024-08-18 17:27] LABS: Glucose Point of Care 130 mg/dl (65-105)
--- NOTE | 2024-08-18 17:34 | P.PNIM_ITS ---
Progress Note: A&P Assessment and Plan (1) Infected ulcer of skin: Qualifiers: Non-pressure ulcer stage: unspecified non-pressure ulcer stage Qualified Code(s): L98.499 - Non-pressure chronic ulcer of skin of other sites with unspecified severity; L08.9 - Local infection of the skin and subcutaneous tissue, unspecified Code(s): L98.499 - Non-pressure chronic ulcer of skin of other sites with unspecified severity; L08.9 - Local infection of the skin and subcutaneous tissue, unspecified Status: Acute Assessment and Plan: Patient presents with right foot wound and has developed sepsis symptoms. Lactic normal but with elevated WBC, fever and tachycardia. Rt Foot XR showed no acute osseous abnormality. Rt Ankle XR showed no definite acute osseous abnormality of the right ankle but with small bony fragment near the fibular head. Soft tissue swelling over the medial and lateral malleoli. LE venous doppler negative for DVT. Started on cefepime, vancomycin, and Flagyl on 08/12. BCx NGTD WCx pending. WBC normal now and fever curve better. General surgery consult with plans for debridement in the OR. LE arteial dopplers pending. Continue current wound care. Continue IV abx. (2) Pneumonia: Code(s): J18.9 - Pneumonia, unspecified organism Status: Acute Assessment and Plan: CXR showing diffuse ground glass and airspace opacities in the right lung concerning for PNA. COVID, influenza and RSV negative. MRSA nasal swab negative Continue IV abx as above. 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 No history of DKA. Antibody testing in January of 2023 was negative. 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 Initial glucose 692, no anion gap. He is noncompliant with Lantus. He was given regular insulin 10 units IV push with improvement. Lantus resumed The patient's blood glucose was reviewed on 08/14 Glucose better overall but still poorly controlled. Continue AccuCheks covering with sliding scale. Hypoglycemia protocol available as needed. Patient declines Dietitian and extension educator consults Resume his normal dose of Lantus since no longer NPO (5) Anemia: Code(s): D64.9 - Anemia, unspecified Status: Acute Assessment and Plan: Hgb 11.1 on admission but dropped to 9 range. No obvious acute blood loss. Iron 32/185 with iroan sat 17%. Ferritin 285. B12/folate normal. Current inflammatory condition may be skewing these findings Follow HH Plan Hyponatremia - Na 122 on admission but 134 when corrected for hyperglycemia. Sodium better as glucose becomes better controlled. Follow. patient with history of uncontrol DM with A1c of 10.9 presented with planter ulcer of the right foot with fat layer exposed seen by surgery service s/p surgical debridement POD # 2 had dressing changed, wound is concerning for vascular compromise as well of necrosis of tissue, discuss with surgery service patient may need additional surgery. wound culture is growing polymicrobial culture patient is treated with Cefepime, Flagyl and vancomycin patient stats he is feeling better, patient was seen by his surgeon and recommended amputation of the 3rd right toe, patient will have surgery today, will continue to monitor and further recommendation to follow DVT Prophylaxis: Lovenox SQ Code Status: Full code Subjective Date/time seen: 08/18/24 17:34 Interval history: 29yo male with diabetes (presumed type 2) who presents here with a right foot wound. No CP or SOB. Slept off and on patient with history of uncontrol DM with A1c of 10.9 presented with planter ulcer of the right foot with fat layer exposed seen by surgery service s/p surgical debridement POD # 2 had dressing changed, wound is concerning for vascular compromise as well of necrosis of tissue, discuss with surgery service patient may need additional surgery. wound culture is growing polymicrobial culture patient is treated with Cefepime, Flagyl and vancomycin patient stats he is feeling better, patient was seen by his surgeon and recommended amputation of the 3rd right toe, patient will have surgery today, will continue to monitor and further recommendation to follow Review of Systems Review of Systems: All systems reviewed & are unremarkable except as noted in HPI and below Objective Data Vital Signs Vital Signs: Vital Signs - 24 hr 08/17/24 19:33 08/17/24 21:15 08/18/24 05:12 Temperature 36.4 C 36.6 C Pulse Rate 76 76 Respiratory Rate 16 16 Blood Pressure 138/77 130/75 Pulse Oximetry 98 97 98 Oxygen Delivery Room Air Oxygen Flow Rate 08/18/24 07:48 08/18/24 13:30 08/18/24 15:46 Temperature 36.6 C 36.1 C L Pulse Rate 73 73 Respiratory Rate 16 18 12 Blood Pressure 136/84 118/85 Pulse Oximetry 98 98 100 Oxygen Delivery Room Air Simple Face Mask Oxygen Flow Rate 8 08/18/24 16:00 08/18/24 16:02 08/18/24 16:15 Temperature Pulse Rate 112 H 108 H Respiratory Rate 30 H 23 H Blood Pressure 167/89 H 162/86 H Pulse Oximetry 92 99 100 Oxygen Delivery Simple Face Mask Room Air Room Air Oxygen Flow Rate 8 08/18/24 16:30 08/18/24 16:45 08/18/24 17:00 Temperature Pulse Rate 105 H 98 93 Respiratory Rate 20 15 18 Blood Pressure 163/91 H 154/88 H 137/83 Pulse Oximetry 90 94 95 Oxygen Delivery Room Air Nasal Cannula Nasal Cannula Oxygen Flow Rate 2 2 08/18/24 17:21 Temperature Pulse Rate Respiratory Rate 18 Blood Pressure Pulse Oximetry 95 Oxygen Delivery Nasal Cannula Oxygen Flow Rate 2 Intake/Output Intake/Output: Intake & Output 08/15/24 08/16/24 08/17/24 08/18/24 23:59 23:59 23:59 23:59 Intake Total 1740 2174 4485.7 1460 Output Total 770 770 Balance 970 2174 4485.7 690 Meds/Results Medications: Active Medications Generic Name Dose Route Start Last Admin Trade Name Freq PRN Reason Stop Dose Admin Acetaminophen 650 mg 08/12/24 19:17 08/13/24 21:08 Acetaminophen 325 Mg Tablet PO 650 mg Q4H PRN Administration Mild Pain (1-3) or Fever Dextrose 12.5 gm 08/12/24 17:49 Dextrose 50% 25 Gm/50 Ml Syringe IV PUSH PRN PRN Hypoglycemia Protocol Enoxaparin Sodium 40 mg 08/13/24 09:00 08/18/24 08:15 Enoxaparin 40 Mg/0.4 Ml Syringe SUB-Q Not Given DAILY ILZET Glucagon 1 mg 08/12/24 17:49 Glucagon For Inj 1 Mg Vial IM PRN PRN Hypoglycemia Protocol Glucose 15 gm 08/12/24 17:49 Glucose Oral Gel 15 Gm Of Glucse In 37.5 Gm Tube PO PRN PRN Hypoglycemia Protocol Cefepime HCl 2 gm in 50 mls @ 100 mls/hr 08/13/24 06:00 08/18/24 17:27 Maxipime 2 Gm/Ns 50 Ml IVPB 100 mls/hr Q12H LIZET Administration Metronidazole 500 mg in 100 mls @ 100 mls/hr 08/13/24 06:00 08/18/24 14:45 Flagyl 500 Mg/Iso Soln 100 Ml IVPB Infused Q8H LIZET Infusion Dextrose 1,000 mls @ 100 mls/hr 08/12/24 17:49 Dextrose 5% 1,000 Ml IVPB PRN PRN Hypoglycemia Protocol Insulin Aspart 3 - 6 units 08/13/24 08:00 08/18/24 17:28 Insulin Aspart (*Bkc) 100 Units/Ml SUB-Q Not Given TIDWM [facility] Protocol Insulin Aspart 1 - 3 units 08/12/24 21:00 08/17/24 21:31 Insulin Aspart (*Bkc) 100 Units/Ml SUB-Q 2 units HS LIZET Administration Protocol Morphine Sulfate 2 mg 08/12/24 19:17 Morphine Sulfate (*Crx) 2 Mg/Ml Inj IV PUSH Q4H PRN Pain Rated 7-10 Oxycodone/Acetaminophen 1 tablet 08/15/24 16:10 Oxycodone/Acetaminophen (*Crx) 5-325 Mg Tablet PO Q4H PRN Pain Rated 4-6 Radiology Results: ITS Impressions Foot X-Ray 08/12/24 16:39 IMPRESSION: No acute osseous abnormality of the right foot. Ankle X-Ray 08/12/24 16:41 IMPRESSION: No definite acute osseous abnormality of the right ankle. Small bony fragment near to the fibular head. Soft tissue swelling over the medial and lateral malleoli. Chest X-Ray 08/13/24 12:46 IMPRESSION: Diffuse groundglass and airspace disease in the right lung, concerning for pneumonia. Short-term follow-up chest radiograph is recommended after appropriate clinical therapy. Venous Doppler Study 08/13/24 19:13 IMPRESSION: Negative bilateral lower extremity venous US. No deep vein thrombosis. Right inguinal enlarged lymph node. Clinical correlation advised. Doppler Study Ultrasound 08/15/24 08:35 IMPRESSION: 1. 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 2. No significant arterial occlusive disease to the left lower limb with normal left TBI. Labs Labs: Laboratory Results - last 24 hr 08/17/24 08/18/24 08/18/24 19:39 05:03 07:39 Sodium 137 Potassium 3.7 Chloride 105 Carbon Dioxide 26 Anion Gap 6 BUN 13 Creatinine 0.87 Estim Creat Clear Calc 95 Estimated GFR > 60 Glucose 140 H POC Capillary Glucose 268 H 131 H Calcium 7.9 L Magnesium 2.1 08/18/24 08/18/24 08/18/24 11:14 13:30 15:55 Sodium Potassium Chloride Carbon Dioxide Anion Gap BUN Creatinine Estim Creat Clear Calc Estimated GFR Glucose POC Capillary Glucose 126 H 109 H 104 Calcium Magnesium 08/18/24 17:23 Sodium Potassium Chloride Carbon Dioxide Anion Gap BUN Creatinine Estim Creat Clear Calc Estimated GFR Glucose POC Capillary Glucose 130 H Calcium Magnesium Quality VTE Prophylaxis VTE prophylaxis: pharmacologic ordered
[2024-08-18 19:47] LABS: Glucose Point of Care 260 mg/dl (65-105)
[2024-08-18] MEDS: INSULIN ASPART (*BKC) 100 UNITS/ML SUB-Q (21:00)
[2024-08-19 05:18] VITALS: BP 117/68; PULSE 69; RESP 16; TEMP 36.7; O2SAT 95
[2024-08-19] MEDS: CEFEPIME 2 GM/NS 50 ML 2 GM/50 ML BAG IVPB (05:51)
[2024-08-19] MEDS: metroNIDAZOLE 500 MG/ISO 100ML 500 MG/100 ML BAG 100 MG IVPB ×2 (06:18→13:08)
[2024-08-19 06:19] LABS: Anion Gap 5 mmol/L (4-12); Blood Urea Nitrogen 13 mg/dL (9-20); Calcium 7.5 mg/dL (8.4-10.2); Carbon Dioxide 27 mmol/L (22-30); Chloride 104 mmol/L (98-107); Estimated CRCL calculation 81 ml/min; Estimated Glomerular Filt Rate > 60; Glucose 139 mg/dL (65-110); Magnesium 2.2 mg/dL (1.6-2.3); Potassium 3.6 mmol/L (3.4-5.0); Sodium 136 mmol/L (137-145)
[2024-08-19 08:16] LABS: Glucose Point of Care 127 mg/dl (65-105)
[2024-08-19] MEDS: ENOXAPARIN 40 MG/0.4 ML SYRINGE SUB-Q (08:51)
[2024-08-19 12:00] LABS: Glucose Point of Care 152 mg/dl (65-105)
[2024-08-19 14:00] VITALS: BP 122/78; PULSE 82; RESP 14; TEMP 36.4; O2SAT 92
--- NOTE | 2024-08-19 14:34 | P.PNGS_ITS ---
Progress Note: A&P Assessment and Plan (1) Necrotizing soft tissue infection: Code(s): M79.89 - Other specified soft tissue disorders Status: Acute Assessment and Plan: Wound looks really good after 2nd debridement yesterday with transmetatarsal open amputation of 3rd toe. Continue silver gel with Nu Gauze packing, 4 x 4 gauze and Kerlix wrap. (2) Diabetic foot infection: Code(s): E11.628 - Type 2 diabetes mellitus with other skin complications; L08.9 - Local infection of the skin and subcutaneous tissue, unspecified Status: Acute Assessment and Plan: Discussed antibiotic treatment with Infectious Disease pharmacist. Will switch to Augmentin 875 mg p.o. b.i.d.. Patient can go home today or tomorrow with home health from surgical perspective. (3) Poorly controlled diabetes mellitus: Code(s): E11.65 - Type 2 diabetes mellitus with hyperglycemia Status: Chronic Assessment and Plan: Hopefully patient will try better to keep blood sugars normal as it will greatly help the healing of his right foot. Subjective Subjective Date/Time Seen: 08/19/24 14:34 Post Op day: 1 Patient reports: no new complaints, feels better and afebrile Exam Const: General: comfortable and awake Extrem: Right lower extremity: foot (no purulence and healthy granulation tissue developing) Objective Data Vital Signs Vital Signs: Vital Signs - 24 hr 08/18/24 15:46 08/18/24 16:00 08/18/24 16:02 Temperature 36.1 C L Pulse Rate 73 112 H Respiratory Rate 12 30 H Blood Pressure 118/85 167/89 H Pulse Oximetry 100 92 99 Oxygen Delivery Simple Face Mask Simple Face Mask Room Air Oxygen Flow Rate 8 8 08/18/24 16:15 08/18/24 16:30 08/18/24 16:45 Temperature Pulse Rate 108 H 105 H 98 Respiratory Rate 23 H 20 15 Blood Pressure 162/86 H 163/91 H 154/88 H Pulse Oximetry 100 90 94 Oxygen Delivery Room Air Room Air Nasal Cannula Oxygen Flow Rate 2 08/18/24 17:00 08/18/24 17:20 08/18/24 17:21 Temperature 37.7 C H Pulse Rate 93 94 Respiratory Rate 18 18 18 Blood Pressure 137/83 132/70 Pulse Oximetry 95 94 95 Oxygen Delivery Nasal Cannula Nasal Cannula Oxygen Flow Rate 2 2 08/18/24 17:35 08/18/24 18:05 08/18/24 19:08 Temperature 37.6 C 37.2 C 37.3 C Pulse Rate 90 92 95 Respiratory Rate 18 18 18 Blood Pressure 143/73 H 133/74 108/62 Pulse Oximetry 95 96 95 Oxygen Delivery Oxygen Flow Rate 08/18/24 22:00 08/19/24 05:18 08/19/24 09:01 Temperature 36.8 C 36.7 C Pulse Rate 80 69 Respiratory Rate 16 16 Blood Pressure 119/74 117/68 Pulse Oximetry 96 95 Oxygen Delivery Room Air Oxygen Flow Rate Intake/Output Intake/Output: Intake & Output 08/16/24 08/17/24 08/18/24 08/19/24 23:59 23:59 23:59 23:59 Intake Total 2174 4485.7 1967 1450 Output Total 770 Balance 2174 4485.7 1197 1450 Meds/Results Medications: Active Medications Generic Name Dose Route Start Last Admin Trade Name Freq PRN Reason Stop Dose Admin Acetaminophen 650 mg 08/12/24 19:17 08/13/24 21:08 Acetaminophen 325 Mg Tablet PO 650 mg Q4H PRN Administration Mild Pain (1-3) or Fever Amoxicillin/Clavulanate Potassium 1 tablet 08/19/24 19:00 Amoxicillin/Clavulanate K 875-125 Mg Tab PO 08/29/24 09:01 Q12HR LIZET Dextrose 12.5 gm 08/12/24 17:49 Dextrose 50% 25 Gm/50 Ml Syringe IV PUSH PRN PRN Hypoglycemia Protocol Enoxaparin Sodium 40 mg 08/13/24 09:00 08/19/24 08:51 Enoxaparin 40 Mg/0.4 Ml Syringe SUB-Q 40 mg DAILY LIZET Administration Glucagon 1 mg 08/12/24 17:49 Glucagon For Inj 1 Mg Vial IM PRN PRN Hypoglycemia Protocol Glucose 15 gm 08/12/24 17:49 Glucose Oral Gel 15 Gm Of Glucse In 37.5 Gm Tube PO PRN PRN Hypoglycemia Protocol Dextrose 1,000 mls @ 100 mls/hr 08/12/24 17:49 Dextrose 5% 1,000 Ml IVPB PRN PRN Hypoglycemia Protocol Insulin Aspart 3 - 6 units 08/13/24 08:00 08/19/24 12:08 Insulin Aspart (*Bkc) 100 Units/Ml SUB-Q Not Given TIDWM [facility] Protocol Insulin Aspart 1 - 3 units 08/12/24 21:00 08/18/24 21:00 Insulin Aspart (*Bkc) 100 Units/Ml SUB-Q 2 units HS [facility] Administration Protocol Morphine Sulfate 2 mg 08/12/24 19:17 Morphine Sulfate (*Crx) 2 Mg/Ml Inj IV PUSH Q4H PRN Pain Rated 7-10 Oxycodone/Acetaminophen 1 tablet 08/15/24 16:10 Oxycodone/Acetaminophen (*Crx) 5-325 Mg Tablet PO Q4H PRN Pain Rated 4-6 Radiology Results: ITS Impressions Foot X-Ray 08/12/24 16:39 IMPRESSION: No acute osseous abnormality of the right foot. Ankle X-Ray 08/12/24 16:41 IMPRESSION: No definite acute osseous abnormality of the right ankle. Small bony fragment near to the fibular head. Soft tissue swelling over the medial and lateral malleoli. Chest X-Ray 08/13/24 12:46 IMPRESSION: Diffuse groundglass and airspace disease in the right lung, concerning for pneumonia. Short-term follow-up chest radiograph is recommended after appropriate clinical therapy. Venous Doppler Study 08/13/24 19:13 IMPRESSION: Negative bilateral lower extremity venous US. No deep vein thrombosis. Right inguinal enlarged lymph node. Clinical correlation advised. Doppler Study Ultrasound 08/15/24 08:35 IMPRESSION: 1. 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 2. No significant arterial occlusive disease to the left lower limb with normal left TBI. Labs Labs: Laboratory Results - last 24 hr 08/18/24 08/18/24 08/18/24 15:55 17:23 19:34 Sodium Potassium Chloride Carbon Dioxide Anion Gap BUN Creatinine Estim Creat Clear Calc Estimated GFR Glucose POC Capillary Glucose 104 130 H 260 H Calcium Magnesium 08/19/24 08/19/24 08/19/24 06:01 08:13 11:57 Sodium 136 L Potassium 3.6 Chloride 104 Carbon Dioxide 27 Anion Gap 5 BUN 13 Creatinine 1.02 Estim Creat Clear Calc 81 Estimated GFR > 60 Glucose 139 H POC Capillary Glucose 127 H 152 H Calcium 7.5 L Magnesium 2.2
--- NOTE | 2024-08-19 16:44 | PM.IMPN ---
Progress Note: A&P Assessment and Plan (1) Infected ulcer of skin: Qualifiers: Non-pressure ulcer stage: unspecified non-pressure ulcer stage Qualified Code(s): L98.499 - Non-pressure chronic ulcer of skin of other sites with unspecified severity; L08.9 - Local infection of the skin and subcutaneous tissue, unspecified Code(s): L98.499 - Non-pressure chronic ulcer of skin of other sites with unspecified severity; L08.9 - Local infection of the skin and subcutaneous tissue, unspecified Status: Acute Assessment and Plan: Patient presents with right foot wound and has developed sepsis symptoms. Lactic normal but with elevated WBC, fever and tachycardia. Rt Foot XR showed no acute osseous abnormality. Rt Ankle XR showed no definite acute osseous abnormality of the right ankle but with small bony fragment near the fibular head. Soft tissue swelling over the medial and lateral malleoli. LE venous doppler negative for DVT. Started on cefepime, vancomycin, and Flagyl on 08/12. BCx NGTD WCx pending. WBC normal now and fever curve better. General surgery consult with plans for debridement in the OR. LE arteial dopplers pending. Continue current wound care. Continue IV abx. (2) Pneumonia: Code(s): J18.9 - Pneumonia, unspecified organism Status: Acute Assessment and Plan: CXR showing diffuse ground glass and airspace opacities in the right lung concerning for PNA. COVID, influenza and RSV negative. MRSA nasal swab negative Continue IV abx as above. 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 No history of DKA. Antibody testing in January of 2023 was negative. 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 Initial glucose 692, no anion gap. He is noncompliant with Lantus. He was given regular insulin 10 units IV push with improvement. Lantus resumed The patient's blood glucose was reviewed on 08/14 Glucose better overall but still poorly controlled. Continue AccuCheks covering with sliding scale. Hypoglycemia protocol available as needed. Patient declines Dietitian and art educator consults Resume his normal dose of Lantus since no longer NPO (5) Anemia: Code(s): D64.9 - Anemia, unspecified Status: Acute Assessment and Plan: Hgb 11.1 on admission but dropped to 9 range. No obvious acute blood loss. Iron 32/185 with iroan sat 17%. Ferritin 285. B12/folate normal. Current inflammatory condition may be skewing these findings Follow HH Plan Hyponatremia - Na 122 on admission but 134 when corrected for hyperglycemia. Sodium better as glucose becomes better controlled. Follow. patient with history of uncontrol DM with A1c of 10.9 presented with planter ulcer of the right foot with fat layer exposed seen by surgery service s/p surgical debridement POD # 2 had dressing changed, wound is concerning for vascular compromise as well of necrosis of tissue, discuss with surgery service patient may need additional surgery. 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 DVT Prophylaxis: Lovenox SQ Code Status: Full code Subjective Date/time seen: 08/19/24 16:44 Interval history: 29yo male with diabetes (presumed type 2) who presents here with a right foot wound. No CP or SOB. Slept off and on patient with history of uncontrol DM with A1c of 10.9 presented with planter ulcer of the right foot with fat layer exposed seen by surgery service s/p surgical debridement POD # 2 had dressing changed, wound is concerning for vascular compromise as well of necrosis of tissue, discuss with surgery service patient may need additional surgery. 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 Review of Systems Review of Systems: All systems reviewed & are unremarkable except as noted in HPI and below Exam Narrative: Patient is comfortable, NAD HEENT: eyes are clear and none icteric LUNGS:CTA HEART: RR S1S2 ABD: BS+, Soft and nontender Lower extremities: no edema, Rt foot with dressing. SKIN: nonjaundiced Neuro: grossly intact. Objective Data Vital Signs Vital Signs: Vital Signs - 24 hr 08/18/24 16:45 08/18/24 17:00 08/18/24 17:20 Temperature 37.7 C H Pulse Rate 98 93 94 Respiratory Rate 15 18 18 Blood Pressure 154/88 H 137/83 132/70 Pulse Oximetry 94 95 94 Oxygen Delivery Nasal Cannula Nasal Cannula Oxygen Flow Rate 2 2 08/18/24 17:21 08/18/24 17:35 08/18/24 18:05 Temperature 37.6 C 37.2 C Pulse Rate 90 92 Respiratory Rate 18 18 18 Blood Pressure 143/73 H 133/74 Pulse Oximetry 95 95 96 Oxygen Delivery Nasal Cannula Oxygen Flow Rate 2 08/18/24 19:08 08/18/24 22:00 08/19/24 05:18 Temperature 37.3 C 36.8 C 36.7 C Pulse Rate 95 80 69 Respiratory Rate 18 16 16 Blood Pressure 108/62 119/74 117/68 Pulse Oximetry 95 96 95 Oxygen Delivery Oxygen Flow Rate 08/19/24 09:01 08/19/24 14:00 Temperature 36.4 C L Pulse Rate 82 Respiratory Rate 14 Blood Pressure 122/78 Pulse Oximetry 92 Oxygen Delivery Room Air Oxygen Flow Rate Intake/Output Intake/Output: Intake & Output 08/16/24 08/17/24 08/18/24 08/19/24 23:59 23:59 23:59 23:59 Intake Total 2174 4485.7 1967 1450 Output Total 770 Balance 2174 4485.7 1197 1450 Meds/Results Medications: Active Medications Generic Name Dose Route Start Last Admin Trade Name Freq PRN Reason Stop Dose Admin Acetaminophen 650 mg 08/12/24 19:17 08/13/24 21:08 Acetaminophen 325 Mg Tablet PO 650 mg Q4H PRN Administration Mild Pain (1-3) or Fever Amoxicillin/Clavulanate Potassium 1 tablet 08/19/24 19:00 Amoxicillin/Clavulanate K 875-125 Mg Tab PO 08/29/24 09:01 Q12HR [facility] Dextrose 12.5 gm 08/12/24 17:49 Dextrose 50% 25 Gm/50 Ml Syringe IV PUSH PRN PRN Hypoglycemia Protocol Enoxaparin Sodium 40 mg 08/13/24 09:00 08/19/24 08:51 Enoxaparin 40 Mg/0.4 Ml Syringe SUB-Q 40 mg DAILY LIZET Administration Glucagon 1 mg 08/12/24 17:49 Glucagon For Inj 1 Mg Vial IM PRN PRN Hypoglycemia Protocol Glucose 15 gm 08/12/24 17:49 Glucose Oral Gel 15 Gm Of Glucse In 37.5 Gm Tube PO PRN PRN Hypoglycemia Protocol Dextrose 1,000 mls @ 100 mls/hr 08/12/24 17:49 Dextrose 5% 1,000 Ml IVPB PRN PRN Hypoglycemia Protocol Insulin Aspart 3 - 6 units 08/13/24 08:00 08/19/24 12:08 Insulin Aspart (*Bkc) 100 Units/Ml SUB-Q Not Given TIDWM [facility] Protocol Insulin Aspart 1 - 3 units 08/12/24 21:00 08/18/24 21:00 Insulin Aspart (*Bkc) 100 Units/Ml SUB-Q 2 units HS LIZET Administration Protocol Morphine Sulfate 2 mg 08/12/24 19:17 Morphine Sulfate (*Crx) 2 Mg/Ml Inj IV PUSH Q4H PRN Pain Rated 7-10 Oxycodone/Acetaminophen 1 tablet 08/15/24 16:10 Oxycodone/Acetaminophen (*Crx) 5-325 Mg Tablet PO Q4H PRN Pain Rated 4-6 Radiology Results: ITS Impressions Foot X-Ray 08/12/24 16:39 IMPRESSION: No acute osseous abnormality of the right foot. Ankle X-Ray 08/12/24 16:41 IMPRESSION: No definite acute osseous abnormality of the right ankle. Small bony fragment near to the fibular head. Soft tissue swelling over the medial and lateral malleoli. Chest X-Ray 08/13/24 12:46 IMPRESSION: Diffuse groundglass and airspace disease in the right lung, concerning for pneumonia. Short-term follow-up chest radiograph is recommended after appropriate clinical therapy. Venous Doppler Study 08/13/24 19:13 IMPRESSION: Negative bilateral lower extremity venous US. No deep vein thrombosis. Right inguinal enlarged lymph node. Clinical correlation advised. Doppler Study Ultrasound 08/15/24 08:35 IMPRESSION: 1. 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 2. No significant arterial occlusive disease to the left lower limb with normal left TBI. Labs Labs: Laboratory Results - last 24 hr 08/18/24 08/18/24 08/19/24 17:23 19:34 06:01 Sodium 136 L Potassium 3.6 Chloride 104 Carbon Dioxide 27 Anion Gap 5 BUN 13 Creatinine 1.02 Estim Creat Clear Calc 81 Estimated GFR > 60 Glucose 139 H POC Capillary Glucose 130 H 260 H Calcium 7.5 L Magnesium 2.2 08/19/24 08/19/24 08:13 11:57 Sodium Potassium Chloride Carbon Dioxide Anion Gap BUN Creatinine Estim Creat Clear Calc Estimated GFR Glucose POC Capillary Glucose 127 H 152 H Calcium Magnesium Quality VTE Prophylaxis VTE prophylaxis: pharmacologic ordered
[2024-08-19] MEDS: INSULIN ASPART (*BKC) 100 UNITS/ML SUB-Q ×2 (17:12→20:26)
[2024-08-19 17:26] LABS: Glucose Point of Care 288 mg/dl (65-105)
[2024-08-19] MEDS: AMOXICILLIN/CLAVULANATE K 875-125 MG TAB 1 TABLET PO (18:42)
--- NOTE | 2024-08-19 18:49 | WPDANESPN ---
Anes - Prog Note Post-Op Date/Time: 08/19/24 18:49 Cardiovascular status: normal Respiratory status: normal Airway patency: baseline Mental status: baseline Post-Op hydration status: normal Vital Signs: Last Vital Signs Temp 36.4 C L 08/19/24 14:00 Pulse 82 08/19/24 14:00 Resp 14 08/19/24 14:00 BP 122/78 08/19/24 14:00 Pulse Ox 92 08/19/24 14:00 O2 Del Method Room Air 08/19/24 09:01 O2 Flow Rate 2 08/18/24 17:21 Pain Score (VAS): 0 I/O: Intake & Output 08/19/24 08/19/24 08/19/24 07:59 15:59 23:59 Intake Total 350 1100 240 Balance 350 1100 240 Laboratory Tests 08/17/24 04:58 08/19/24 06:01 08/18/24 08/19/24 08/19/24 19:34 06:01 08:13 Sodium 136 L Potassium 3.6 Chloride 104 Carbon Dioxide 27 Anion Gap 5 BUN 13 Creatinine 1.02 Estim Creat Clear Calc 81 Estimated GFR > 60 Glucose 139 H POC Capillary Glucose 260 H 127 H Calcium 7.5 L Magnesium 2.2 08/19/24 08/19/24 11:57 16:57 Sodium Potassium Chloride Carbon Dioxide Anion Gap BUN Creatinine Estim Creat Clear Calc Estimated GFR Glucose POC Capillary Glucose 152 H 288 H Calcium Magnesium Microbiology 08/15/24 15:03 Foot Right Anaerobic Culture - Preliminary Prevotella species 08/15/24 15:03 Foot Right Aerobic Culture - Final Group B Streptococcus isolated 08/13/24 13:30 Foot - Unspecified Anaerobic Culture - Final Prevotella species 08/13/24 13:30 Foot - Unspecified Aerobic Culture - Final Staphylococcus aureus Group B Streptococcus isolated Post-procedural complaints: none Patient Feedback: Patient satisfied with anesthetic care.
[2024-08-19 20:26] LABS: Glucose Point of Care 277 mg/dl (65-105)
[2024-08-19 22:00] VITALS: BP 152/89; PULSE 84; RESP 18; TEMP 36.7; O2SAT 90
[2024-08-20 05:10] LABS: Anion Gap 4 mmol/L (4-12); Blood Urea Nitrogen 13 mg/dL (9-20); Calcium 7.8 mg/dL (8.4-10.2); Carbon Dioxide 28 mmol/L (22-30); Chloride 104 mmol/L (98-107); Estimated CRCL calculation 94 ml/min; Estimated Glomerular Filt Rate > 60; Glucose 226 mg/dL (65-110); Magnesium 2.2 mg/dL (1.6-2.3); Potassium 3.8 mmol/L (3.4-5.0); Sodium 136 mmol/L (137-145)
[2024-08-20 06:00] VITALS: BP 136/84; PULSE 81; RESP 18; TEMP 36.5; O2SAT 96
[2024-08-20 08:16] LABS: Glucose Point of Care 174 mg/dl (65-105)
[2024-08-20] MEDS: AMOXICILLIN/CLAVULANATE K 875-125 MG TAB 1 TABLET PO (10:02)
[2024-08-20] MEDS: ENOXAPARIN 40 MG/0.4 ML SYRINGE SUB-Q (10:02)
--- NOTE | 2024-08-20 10:34 | P.PNGS_ITS ---
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 Continue silver gel with Nu Gauze packing, 4 x 4 gauze and Kerlix wrap. * Okay to discharge from surgical standpoint. Follow-up with Dr. Garcia in wound clinic. (2) Diabetic foot infection: Code(s): E11.628 - Type 2 diabetes mellitus with other skin complications; L08.9 - Local infection of the skin and subcutaneous tissue, unspecified Status: Acute Assessment and Plan: Discussed antibiotic treatment with Infectious Disease pharmacist. Will switch to Augmentin 875 mg p.o. b.i.d.. Patient can go home today from surgical perspective. (3) Poorly controlled diabetes mellitus: Code(s): E11.65 - Type 2 diabetes mellitus with hyperglycemia Status: Chronic Assessment and Plan: Hopefully patient will try better to keep blood sugars normal as it will greatly help the healing of his right foot. Subjective Subjective Date/Time Seen: 08/20/24 10:34 Interval history: No significant foot pain. Denies fevers. Exam Extrem: Other: Right foot dressing and packing removed. Wound shows good granulation tissue and healthy viable tissue with no signs purulent drainage. Silver gel applied and packing replaced. Objective Data Vital Signs Vital Signs: Vital Signs - 24 hr 08/19/24 14:00 08/19/24 20:00 08/19/24 22:00 Temperature 97.5 F L 98.1 F Pulse Rate 82 84 Respiratory Rate 14 18 Blood Pressure 122/78 152/89 H Pulse Oximetry 92 90 Oxygen Delivery Room Air 08/20/24 06:00 08/20/24 08:00 Temperature 97.7 F Pulse Rate 81 Respiratory Rate 18 Blood Pressure 136/84 Pulse Oximetry 96 Oxygen Delivery Room Air Intake/Output Intake/Output: Intake & Output 08/17/24 08/18/24 08/19/24 08/20/24 23:59 23:59 23:59 23:59 Intake Total 4485.7 1967 1690 240 Output Total 770 Balance 4485.7 1197 1690 240 Meds/Results Medications: Active Medications Generic Name Dose Route Start Last Admin Trade Name Freq PRN Reason Stop Dose Admin Acetaminophen 650 mg 08/12/24 19:17 08/13/24 21:08 Acetaminophen 325 Mg Tablet PO 650 mg Q4H PRN Administration Mild Pain (1-3) or Fever Amoxicillin/Clavulanate Potassium 1 tablet 08/19/24 19:00 08/20/24 10:02 Amoxicillin/Clavulanate K 875-125 Mg Tab PO 08/29/24 09:01 1 tablet Q12HR LIZET Administration Dextrose 12.5 gm 08/12/24 17:49 Dextrose 50% 25 Gm/50 Ml Syringe IV PUSH PRN PRN Hypoglycemia Protocol Enoxaparin Sodium 40 mg 08/13/24 09:00 08/20/24 10:02 Enoxaparin 40 Mg/0.4 Ml Syringe SUB-Q 40 mg DAILY LIZET Administration Glucagon 1 mg 08/12/24 17:49 Glucagon For Inj 1 Mg Vial IM PRN PRN Hypoglycemia Protocol Glucose 15 gm 08/12/24 17:49 Glucose Oral Gel 15 Gm Of Glucse In 37.5 Gm Tube PO PRN PRN Hypoglycemia Protocol Dextrose 1,000 mls @ 100 mls/hr 08/12/24 17:49 Dextrose 5% 1,000 Ml IVPB PRN PRN Hypoglycemia Protocol Insulin Aspart 3 - 6 units 08/13/24 08:00 08/20/24 09:24 Insulin Aspart (*Bkc) 100 Units/Ml SUB-Q Not Given TIDWM [facility] Protocol Insulin Aspart 1 - 3 units 08/12/24 21:00 08/19/24 20:26 Insulin Aspart (*Bkc) 100 Units/Ml SUB-Q 1 units HS LIZET Administration Protocol Morphine Sulfate 2 mg 08/12/24 19:17 Morphine Sulfate (*Crx) 2 Mg/Ml Inj IV PUSH Q4H PRN Pain Rated 7-10 Oxycodone/Acetaminophen 1 tablet 08/15/24 16:10 Oxycodone/Acetaminophen (*Crx) 5-325 Mg Tablet PO Q4H PRN Pain Rated 4-6 Radiology Results: ITS Impressions Foot X-Ray 08/12/24 16:39 IMPRESSION: No acute osseous abnormality of the right foot. Ankle X-Ray 08/12/24 16:41 IMPRESSION: No definite acute osseous abnormality of the right ankle. Small bony fragment near to the fibular head. Soft tissue swelling over the medial and lateral malleoli. Chest X-Ray 08/13/24 12:46 IMPRESSION: Diffuse groundglass and airspace disease in the right lung, concerning for pneumonia. Short-term follow-up chest radiograph is recommended after appropriate clinical therapy. Venous Doppler Study 08/13/24 19:13 IMPRESSION: Negative bilateral lower extremity venous US. No deep vein thrombosis. Right inguinal enlarged lymph node. Clinical correlation advised. Doppler Study Ultrasound 08/15/24 08:35 IMPRESSION: 1. 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 2. No significant arterial occlusive disease to the left lower limb with normal left TBI. Labs Labs: Laboratory Results - last 24 hr 08/19/24 08/19/24 08/19/24 11:57 16:57 20:22 Sodium Potassium Chloride Carbon Dioxide Anion Gap BUN Creatinine Estim Creat Clear Calc Estimated GFR Glucose POC Capillary Glucose 152 H 288 H 277 H Calcium Magnesium 08/20/24 08/20/24 04:45 08:14 Sodium 136 L Potassium 3.8 Chloride 104 Carbon Dioxide 28 Anion Gap 4 BUN 13 Creatinine 0.88 Estim Creat Clear Calc 94 Estimated GFR > 60 Glucose 226 H POC Capillary Glucose 174 H Calcium 7.8 L Magnesium 2.2
[2024-08-20 11:35] LABS: Glucose Point of Care 252 mg/dl (65-105)
[2024-08-20] MEDS: INSULIN ASPART (*BKC) 100 UNITS/ML SUB-Q (11:39)
--- NOTE | 2024-08-20 12:07 | PM.DS ---
DS: Admitting Diagnosis Discharge Date 08/20/24 Admitting Diagnosis Foot/Ankle Swelling DS: Discharge Diagnosis Discharge Diagnosis (1) Infected ulcer of skin: Qualifiers: Non-pressure ulcer stage: unspecified non-pressure ulcer stage Qualified Code(s): L98.499 - Non-pressure chronic ulcer of skin of other sites with unspecified severity; L08.9 - Local infection of the skin and subcutaneous tissue, unspecified Code(s): L98.499 - Non-pressure chronic ulcer of skin of other sites with unspecified severity; L08.9 - Local infection of the skin and subcutaneous tissue, unspecified Status: Acute Assessment and Plan: Patient presents with right foot wound and has developed sepsis symptoms. Lactic normal but with elevated WBC, fever and tachycardia. Rt Foot XR showed no acute osseous abnormality. Rt Ankle XR showed no definite acute osseous abnormality of the right ankle but with small bony fragment near the fibular head. Soft tissue swelling over the medial and lateral malleoli. LE venous doppler negative for DVT. Started on cefepime, vancomycin, and Flagyl on 08/12. BCx NGTD WCx pending. WBC normal now and fever curve better. General surgery consult with plans for debridement in the OR. LE arteial dopplers pending. Continue current wound care. Continue IV abx. (2) Pneumonia: Code(s): J18.9 - Pneumonia, unspecified organism Status: Acute Assessment and Plan: CXR showing diffuse ground glass and airspace opacities in the right lung concerning for PNA. COVID, influenza and RSV negative. MRSA nasal swab negative Continue IV abx as above. Doxy added for atypical coverage Sputum ordered (3) Sepsis: Code(s): A41.9 - Sepsis, unspecified organism Status: Acute Assessment and Plan: As above (4) Diabetes: Qualifiers: Diabetes mellitus complication detail: with foot ulcer Diabetes mellitus complication status: with skin complications Diabetes mellitus local company intermodal truck driver insulin use: without local company intermodal truck driver use Diabetes mellitus type: type 2 Qualified Code(s): E11.621 - Type 2 diabetes mellitus with foot ulcer; L97.509 - Non-pressure chronic ulcer of other part of unspecified foot with unspecified severity Code(s): E11.9 - Type 2 diabetes mellitus without complications Status: Acute Assessment and Plan: Initially unclear if DM Type 1 vs 2. No history of DKA. Antibody testing in January of 2023 was negative. 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 Initial glucose 692, no anion gap. He is noncompliant with Lantus. He was given regular insulin 10 units IV push with improvement. Lantus resumed The patient's blood glucose was reviewed on 08/14 Glucose better overall but still poorly controlled. Continue AccuCheks covering with sliding scale. Hypoglycemia protocol available as needed. Patient declines Dietitian and nurse educator consults Resume his normal dose of Lantus since no longer NPO (5) Anemia: Code(s): D64.9 - Anemia, unspecified Status: Acute Assessment and Plan: Hgb 11.1 on admission but dropped to 9 range. No obvious acute blood loss. Iron 32/185 with iroan sat 17%. Ferritin 285. B12/folate normal. Current inflammatory condition may be skewing these findings Follow HH Plan Hyponatremia - Na 122 on admission but 134 when corrected for hyperglycemia. Sodium better as glucose becomes better controlled. Follow. patient with history of uncontrol DM with A1c of 10.9 presented with planter ulcer of the right foot with fat layer exposed seen by surgery service s/p surgical debridement POD # 2 had dressing changed, wound is concerning for vascular compromise as well of necrosis of tissue, discuss with surgery service patient may need additional surgery. 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 DVT Prophylaxis: Lovenox SQ Code Status: Full code DS: Summary Hospital Course Hospital Course: patient with history of uncontrol DM with A1c of 10.9 presented with planter ulcer of the right foot with fat layer exposed seen by surgery service s/p surgical debridement had dressing changed, wound is concerning for vascular compromise as well of necrosis of tissue, discuss with surgery service patient may need additional surgery. 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 today patient feels better and clinically stable, will discharge patient today. Time Spent with Patient Time attestation: Total time spent providing and/or coordinating discharge services: Exam Narrative: Patient is comfortable, NAD HEENT: eyes are clear and none icteric LUNGS:CTA HEART: RR S1S2 ABD: BS+, Soft and nontender Lower extremities: no edema, Rt foot with dressing. SKIN: nonjaundiced Neuro: grossly intact. DS: Data Data Completed and Pending Completed studies during hospitalization: Pending at discharge 08/15/24 15:20 Surgical [PTH] Routine Pending studies at discharge: Pending at discharge 08/18/24 15:44 Surgical [PTH] Routine Labs on day of discharge: Labs from last 24 hours 08/20/24 08/20/24 08/20/24 11:31 08:14 04:45 Sodium 136 L Potassium 3.8 Chloride 104 Carbon Dioxide 28 Anion Gap 4 BUN 13 Creatinine 0.88 Estim Creat Clear Calc 94 Estimated GFR > 60 Glucose 226 H POC Capillary Glucose 252 H 174 H Calcium 7.8 L Magnesium 2.2 08/19/24 08/19/24 20:22 16:57 Sodium Potassium Chloride Carbon Dioxide Anion Gap BUN Creatinine Estim Creat Clear Calc Estimated GFR Glucose POC Capillary Glucose 277 H 288 H Calcium Magnesium Preliminary micro results at discharge 08/15/24 15:03 Anaerobic Culture - Preliminary Foot Right Prevotella species Discharge Plan Discharge Consulting providers: Kraig Garcia; Km Briggs; Charleen Philippe; Melissa Coleman; Campos Burnette; Chandan Caraballo; Traci Barba; Melissa Vick; Cipriano Quevedo; Angus Block; Brittani Camejo; Cristóbal Smith Discharging Clinician: Lio Jvaier Patient Disposition: Home Activity: may shower Diet: diabetic Wound Care Instructions: keep dressing dry, remove dressing to shower and change dressing daily Discharge Instructions: Keep right foot wound clean by washing with soap and water the entire foot every day or every other day. Apply dressing after cleaning foot. A wound care instructions-apply silver gel to the wound, gently and loosely pack 1 in iodoform Nu Gauze into the wound. Cover the wound with gauze pads. Wrap foot with Kerlix roll or 4 in Juan Daniel wrap. Wound care dressing changes need to be done every day while showers can be every other day or every day. Heel touch weight-bearing until seen by Dr. Garcia. Patient will follow-up in the wound clinic this , 08/25/2024. My office staff will get this arranged on Thursday. Patient to follow discharge care instruction from his surgeon and follow up as scheduled, patient to follow up with his primary care provider as soon as possible, patient is instructed, if any symptoms worsen to go to nearest ER. Patient Instructions: Antibiotic Form, Basic Carbohydrate Counting (DC) Patient Language: Romansh Stand Alone Forms: General Discharge Information Follow-up/Referrals: Lindsay Abdi MD [Primary Care Provider] - Kraig Garcia MD [Physician] - 08/25/24 (See Dr[address] Garcia in the wound clinic on , 08/25/2024. If any problems, follow up in my office on instead.) Discharge Medications: New amoxicillin-pot clavulanate 875-125 mg tablet 1 tablet PO Q12H Qty: 16 0RF Continued insulin glargine 100 unit/mL (3 mL) insulin pen 7 unit subcut HS Qty: 15 0RF Date of admission: 08/12/24 18:04 Primary Care Provider: Lindsay Abdi Admitting Provider: Otilio Barnett Attending physician on admission: Lio Javier Condition: Improved
--- NOTE | 2024-08-22 15:47 | PCCDE ---
08/22/24 15:45 Reached patient for DM courtesy follow up call. Report he's doing good . pre lunch glucose 117 Denies questions, concerns related to DM Has MD follow up appt . LEONIDAS
== END 2024-08-20 14:15 | disposition home or self-care (01) | DRG 710 ==
LOC: ANHED 18:16 → ANH2MED 18:52
PROVIDERS: Internal Medicine; Registered Nurse; Student in an Organized Health Care Education/Training Program; Surgery; Admitting Provider General Practice; Emergency Provider Emergency Medicine; PCP Family Medicine; Visit Provider Family Medicine
PROC: 0QBN0ZZ Excision of Right Metatarsal, Open Approach (ICD-10-PCS; principal; 2024-08-15 14:30)
PROC: 0Y6M0ZC Detachment at Right Foot, Partial 3rd Ray, Open Approach (ICD-10-PCS; principal; 2024-08-18 14:30)
DX: A41.9 Sepsis, unspecified organism (principal); J18.9 Pneumonia, unspecified organism; L97.512 Non-pressure chronic ulcer of other part of right foot with fat layer exposed; M79.89 Other specified soft tissue disorders; B95.1 Streptococcus, group B, as the cause of diseases classified elsewhere; B96.89 Other specified bacterial agents as the cause of diseases classified elsewhere; B95.61 Methicillin susceptible Staphylococcus aureus infection as the cause of diseases classified elsewhere; D64.9 Anemia, unspecified; E11.621 Type 2 diabetes mellitus with foot ulcer; E11.319 Type 2 diabetes mellitus with unspecified diabetic retinopathy without macular edema; E11.42 Type 2 diabetes mellitus with diabetic polyneuropathy; E11.51 Type 2 diabetes mellitus with diabetic peripheral angiopathy without gangrene; E11.65 Type 2 diabetes mellitus with hyperglycemia; E87.1 Hypo-osmolality and hyponatremia; F17.290 Nicotine dependence, other tobacco product, uncomplicated; Z20.822 Contact with and (suspected) exposure to COVID-19; Z79.4 Long term (current) use of insulin; Z91.148 Patient's other noncompliance with medication regimen for other reason
CPT/HCPCS: 36415; 71045; 73610; 73630; 80048; 80053; 80202; 82607; 82728; 82746; 82948; 83036; 83540; 83550; 83605; 83735; 85025; 85027; 85610; 85730; 86140; 87040; 87070; 87075; 87181; 87205; 87637; 87641; 88305; 88309; 88311; 93005; 93923; 93970; 96365; 96367; 96375; 99285; A9270; J0692; J1650; J1815; J1836; J2003; J2405; J2704; J3010; J3370; J7040; J7120

== ENCOUNTER 2024-11-14 07:08 | Outpatient (RCR) | payer BC, SELFPAY ==
[2024-09-05 11:58] VITALS: BMI 24.0
== END 2024-12-04 23:59 | disposition home or self-care (01) ==
LOC: ANHWOC 07:08
PROVIDERS: PCP Family Medicine; Visit Provider Surgery
DX: Z48.01 Encounter for change or removal of surgical wound dressing (principal); Z89.421 Acquired absence of other right toe(s)
CPT/HCPCS: 99213; 99214; G0463

== ENCOUNTER 2025-04-18 10:12 | Emergency (ER) | payer BC, SELFPAY ==
[2025-04-18 10:13] VITALS: BP 164/110; PULSE 96; RESP 16; TEMP 36.4; O2SAT 100
[2025-04-18 11:01] VITALS: BP 159/99; PULSE 83; RESP 20; O2SAT 100
[2025-04-18 11:24] VITALS: BP 157/96; PULSE 94; RESP 16; O2SAT 100
--- NOTE | 2025-04-18 11:27 | ED.EYEPROB ---
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 A few days ago he had what he suspects to be hemorrhage in left eye which is now completely blurry Related Data Allergies Allergy/AdvReac Type Severity Reaction Status Date / Time No Known Allergies Allergy Verified 04/18/25 10:16 Review of Systems Review of Systems: All systems reviewed & are unremarkable except as noted in HPI and below PMFSH Past Medical History Medical History (Updated 04/18/25 @ 11:46 by Antonia Rene MD) Amputation toe Diabetes poorly controlled with neuropathy Surgical History Surgical History (Updated 08/25/24 @ 11:26 by Samantha Cruz CMA) Hx of amputation 08/18/24 Transmetatarsal open amputation right 3rd toe; debridement skin subcutaneous muscle 2 x [address] Garcia Social History Social History (Updated 08/25/24 @ 10:28 by Mary Cedillo MA) Smoking status: Current every day smoker Tobacco type: e-cigarettes/vaping Second hand tobacco smoke exposure: No Alcohol intake: current Drinks per week: 1 Substance use: current Substance use type: marijuana Other substance usage details: Uses alcohol and substances rarely/socially Last use: 01/23/23 Lack of Transportation: No Lack of Food: Sometimes True Current Housing: I Have Housing Concerned About Future Housing: No Difficulty Paying Gas/Electric Bills: No Difficulty Paying for Meds: No Currently Unemployed: No Education: High School Diploma/GED Difficulty w/ Childcare or Family Care: No Spiritual care concerns: No Exam Narrative: EXAMINATION OF ORGAN SYSTEMS/BODY AREAS: Constitutional: Vital signs per nursing GENERAL:No acute distress, non-toxic appearing. HEAD: Normal with no signs of head trauma. EYES: Right eye red. Left eye patient q.d. count fingers ENT: Poor dentition LUNGS: Nonlabored breathing. HEART: Regular rate and rhythm ABD: Soft, nontender to palpation EXT: Normal range of motion SKIN: No rashes or lesions. NEURO: Alert. No gross focal sensory or strength deficits. PSYCH: Normal affect Course Vital Signs Vital signs: Vital Signs Temperature 97.6 F 04/18/25 10:13 Pulse Rate 96 04/18/25 10:13 Respiratory Rate 16 04/18/25 10:13 Blood Pressure 164/110 H 04/18/25 10:13 Pulse Oximetry 100 04/18/25 10:13 Temperature 97.6 F 04/18/25 10:13 Pulse Rate 92 04/18/25 11:56 Respiratory Rate 16 04/18/25 11:56 Blood Pressure 154/104 H 04/18/25 11:56 Pulse Oximetry 100 04/18/25 11:56 Oxygen Delivery Room Air 04/18/25 11:01 MDM MDM Narrative Medical decision making narrative: 29-year-old male with history of poorly-controlled diabetes, severe diabetic retinopathy who has not been able to follow with his topographical drafter after lapse of coverage, noticed new significant change in his vision to his left eye, he is only able to count fingers, started few days ago, finally came in because his parents told him to. He has no eye site to the right eye, only able to count fingers to the left, normal IOP, discussed with Ophthalmology at [facility] Dr Gillette, where he had been getting injections and treatment, and Dr. Gillette was able to arrange appointment on for injection, and will try to make it so patient would not have to pay exorbitant lead out of pocket. Patient agreeable to this plan with strict precautions. Differential Diagnosis Differential Diagnosis: Retinopathy, vitreous hemorrhage, detachment Lab Data Labs: Lab Results 04/18/25 Range/Units 11:06 POC Capillary Glucose 251 H (65-105) mg/dl Discharge Plan Discharge Clinical Impression: Diabetic retinopathy Patient Disposition: Home Condition: Stable Instructions: Antibiotic Form Additional Instructions: You have an appointment scheduled at [facility] at 8am on . [address] [place] [address] Please follow-up with your topographical drafter and you can return to the ER for any worsening symptoms or issues. Patient Language: Kyrgyz Prescriptions: No Action insulin glargine 100 unit/mL (3 mL) insulin pen 7 unit subcut HS Qty: 15 0RF (DME) Dexcom G7 Sensor Device See Rx Instructions .Route Qty: 3 12RF Rx Instructions: As directed daily to monitor blood sugar Follow-up/Referrals: Jin,MD Lindsay [Primary Care Provider, Family Practice]
--- OUTSIDE RECORDS SUMMARY | 2025-04-18 11:53 | XMS_ITS | Clinical Summary ---
Author Organization [facility] Address [address] [place] [place] [address] Care Team Providers Care Automotive General Sales Manager Name Role Phone Lindsay Abdi MD Primary Care Provider [phone] Source Comments [facility],non-owned Affiliates and Associated Physician Practices is amultiple site organization consisting of ambulatory clinics and hospital sitesin [place], [place], [place] and [place]. This disclosure is being madepursuant to the Care Everywhere program and may not contain all information available regarding this patient. Last updated 18.[employer] [facility] Allergies No known active allergies Medications * Be aware that medications may not be up to date on this document. Alwaysverify current medications with the patient. moxifloxacin (Vigamox) 0.5 % ophthalmic solution Instill 1 (one) drop into right eye 4 times daily 4 Active dorzolamide-ti molol (Cosopt) 2-0.5 % ophthalmic solution Instill 1 (one) drop into both eyes 3 times daily 15 mL 4 5 Active brimonidine (Alphagan) 0.2 % ophthalmic solution Instill 1 (one) drop into right eye 3 times daily 15 mL 4 5 Active latanoprost (Xalatan) 0.005 % ophthalmic solution Instill 1 (one) drop into right eye at bedtime 2.5 mL 4 5 Active prednisoLONE acetate (Pred Forte) 1 % ophthalmic suspension 4 Active Continuous Glucose Sensor (Dexcom G7 Sensor) MISCIndication s:Poor control type I diabetes mellitus (HCC) Use 1 Each every 10 days 3 Each 5 Active Lantus SoloStar pen Inject 8 (eight) Units subcutaneously at bedtime 15 mL 3 5 Active insulin lispro (HumaLOG KwikPen) 100 UNIT/ML pen Inject 2 (two) Units to 6 (six) Units subcutaneously 3 times daily before meals 2u for small meal, 3U for medium and 4U for large meal, add 1 if glucose over 200, add 2u if glucose over 300, daily max 18U 15 mL 3 5 Active Insulin Pen Needle 32G X 4 MM MISCIndication s:Poor control type I diabetes mellitus (HCC) 1 Each by Injection route 4 times daily 300 Each 11 5 Active ofloxacin (Ocuflox) 0.3 % ophthalmic solution Instill 1 (one) drop into right eye 4 times daily 5 mL 3 5 Active acetaZOLAMIDE ER 12hr (Diamox Sequel) 500 MG capsule Take 1 (one) capsule by mouth 2 times daily 60 capsule 1 5 Active Active Problems No known active problems Encounters Date Type Department Care Team Description 04/18/2025 Telephone [facility] - Ophthalmology [address] [place] [phone] Gallito Gillette MD Eye Problem from Last 3 Months Social History Tobacco Use Types Packs/Day Years Used Date Smoking Tobacco: Never Smokeless Tobacco: Never Tobacco Cessation:Counseling Given: Not Answered Alcohol Use Standard Drinks/Week Comments Yes 0 (1 standard drink = 0.6 oz pur e alcohol) socially Sex and Gender Information Value Date Recorded Sex Assigned at Not on file Legal Sex Male 9:00 AM CDT Gender Identity Not on file Sexual Orientation Not on file Last Filed Vital Signs Vital Sign Reading Time Taken Comments Blood Pressure 142/88 05/23/2024 1:23 PM ELECTRIC METER TESTER SHOP Pulse 83 05/23/2024 1:23 PM ELECTRIC METER TESTER SHOP Temperature 36.1 C (97 F) 03/16/2024 3:20 PM ELECTRIC METER TESTER SHOP Respiratory Rate 13 03/16/2024 4:00 PM ELECTRIC METER TESTER SHOP Oxygen Saturation 98% 05/23/2024 1:23 PM ELECTRIC METER TESTER SHOP Inhaled Oxygen Concentration - - Weight 61.2 kg (135 lb) 05/23/2024 1:23 PM ELECTRIC METER TESTER SHOP Height 165.1 cm (5' 5) 05/23/2024 1:23 PM ELECTRIC METER TESTER SHOP Body Mass Index 22.47 05/23/2024 1:23 PM ELECTRIC METER TESTER SHOP Plan of Treatment Health Maintenance Due Date Last Done Comments HIV SCREENING 2009 HEPATITIS C SCREENING 05/20/2012 DTAP/TDAP/TD VACCINES (1 - Tdap) 2013 HEPATITIS B VACCINE (1 of 3 - 19+ 3-dose series) 2013 PNEUMOCOCCAL VACCINE (1 of 2 - PCV) 2013 HPV VACCINE (1 - 3-dose SCDM series) 2021 DEPRESSION SCREENING 05/04/2024 COVID-19 VACCINE (1 - 2024-2 6 season) 2025 INFLUENZA VACCINE (#1) 2025 ZOSTER VACCINE (1 of 2) 2044 HIB VACCINE Aged Out No longer eligi ble based on patient's age to complete this topic MENINGOCOCCAL (Group B) VACC INE SHARED DECISION-MAKING Aged Out No longer eligibl e based on patient's age to complete this topic MENINGOCOCCAL GROUPS A/C/Y/W VACCINE Aged Out No longer eligible b ased on patient's age to complete this topic Insurance [facility] MEDICAID Care Teams Automotive General Sales Manager Relationship Specialty Start Date End Date Lindsay Abdi MD [address] [place], [place] [id number] PCP - General Family Medicine 10/7/24
--- OUTSIDE RECORDS SUMMARY | 2025-04-18 11:53 | XMS_ITS | Encounter Summary ---
Author Organization [facility] Address [address] [place] [address] [place] [address] Care Team Providers Care Collection Clerk Name Role Phone Lindsay Abdi MD Primary Care Provider [phone] Encounter Details Date Type Department Care Team (Late st Contact Info) Description 04/22/2024 Telephone [facility] - Ophthalmology [address] [place] [address] [phone] Connie Knapp MD [address] [place] [phone] Social History Tobacco Use Types Packs/Day Years [...] as of this encounter Plan of Treatment Not on file documented as of this encounter Visit Diagnoses Not on filedocumented in this encounter Care Teams Collection Clerk Relationship Specialty Start Date End Date Lindsay Abdi MD [address] [place] [address] PCP - General Family Medicine 02/08/24 documented as of this encounter
--- OUTSIDE RECORDS SUMMARY | 2025-04-18 11:54 | XMS_ITS | Encounter Summary ---
Author Organization [facility] Address [address] [place] [address] Care Team Providers Care Interface Control Officer Name Role Phone Lindsay Abdi MD Primary Care Provider [phone] Reason for Visit * Reason Onset Date Comments Eye Problem 04/18/2025 Encounter Details Date Type Department Care Team (Late st Contact Info) Description 04/18/2025 Telephone [facility] - Op[facility]mology [address] [place] [phone] Gallito Gillette MD [address] [place] [address] Eye Problem Social History Tobacco Use Types Packs/Day Years [...] on file documented as of this encounter Miscellaneous Notes * Telephone Encounter - Gallito Gillette MD - 04/18/2025 11:39 AM CST Transfer Center Call Summary Called by transfer center regarding Catracho Deras, a 29 year old male currently in the [facility]. Per [facility] care team, patient presented due to suspected vitreous hemorrhage of OS (patient monocular at baseline). I spoke to Dr. Knapp directly who recommended patient follow-up in [facility] as below. Reminded provider that we cannot fully exclude vision-threatening or life- threatening problems via remote evaluation. While we can offer recommendations based on the information provided to us, decision-making is ultimately the provider's responsibility and we would be happy to evaluate the patientmore urgently if the provider and patient so choose. Plan: - Provider states that patient will be given appt time, date, and location directly - Will schedule appt on 04/20/[address] Knapp Informed [facility] team to let pt know of our clinic phone number ([phone]), and that pts without insurance will be charged a $100 co-pay with additional procedure-specific charges. Asked [facility] team to push imaging to [facility]/ and/or give pt copy of imaging on CD and ask pt to bring to follow-up appointment. Gallito Gillette MD Ophthalmology Resident 04/18/2025 11:39 AM SHOP MANAGER documented in this encounter Plan of Treatment Not on file documented as of this encounter Visit Diagnoses Not on filedocumented in this encounter Care Teams Interface Control Officer Relationship Specialty Start Date End Date Lindsay Abdi MD [address] [place] [address] PCP - General Family Medicine 02/08/24 documented as of this encounter
[2025-04-18 11:56] VITALS: BP 154/104; PULSE 92; RESP 16; O2SAT 100
--- OUTSIDE RECORDS SUMMARY | 2025-04-18 13:16 | XMS_ITS | Clinical Summary ---
Author Organization [facility] Address [address] [place] [address] Care Team Providers Care Operating Table Assembler Name Role Phone Lindsay Abdi MD Primary Care Provider [phone] Source Comments [facility],non-owned Affiliates and Associated Physician Practices is amultiple site organization consisting of ambulatory clinics and hospital sitesin [place], [place], [place] and [place]. This disclosure is being madepursuant to the Care Everywhere program and may not contain all information available regarding this patient. Last updated 18.[employer] [facility] Allergies No known active allergies Medications * [...] 04/18/2025 Telephone [facility] - [facility] [address] [place] [phone] Gallito Gillette MD Eye Problem from Last [...] Comments Blood Pressure 142/88 05/23/2024 1:23 PM CAMERA MACHINIST Pulse 83 05/23/2024 1:23 PM CAMERA MACHINIST Temperature 36.1 C (97 F) 03/16/2024 3:20 PM CAMERA MACHINIST Respiratory Rate 13 03/16/2024 4:00 PM CAMERA MACHINIST Oxygen Saturation 98% 05/23/2024 1:23 PM CAMERA MACHINIST Inhaled Oxygen Concentration - - Weight 61.2 kg (135 lb) 05/23/2024 1:23 PM CAMERA MACHINIST Height 165.1 cm (5' 5) 05/23/2024 1:23 PM CAMERA MACHINIST Body Mass Index 22.47 05/23/2024 1:23 PM CAMERA MACHINIST Plan of Treatment Upcoming Encounters Date Type Department Care Team (Late st Contact Info) Description 04/20/2025 8:00 AM CAMERA MACHINIST Office Visit [facility] - Ophthalmology [address] [place] [phone] Connie Knapp MD [address] [place] [phone] Health Maintenance Due Date Last Done Comments [...] patient's age to complete this topic Insurance [facility] MEDICAID Care Teams Operating Table Assembler Relationship Specialty Start Date End Date Lindsay Abdi MD [address] [place] [address] PCP - General Family Medicine 02/08/24
--- OUTSIDE RECORDS SUMMARY | 2025-04-18 13:16 | XMS_ITS | Encounter Summary ---
Author Organization [facility] Address [address] [facility] [place] [address] Care Team Providers Care Provider Network Analyst Name Role Phone Lindsay Abdi MD Primary Care Provider [phone] Reason for Visit * Reason Onset Date Comments Eye Problem 04/18/2025 Encounter Details Date Type Department Care Team (Late st Contact Info) Description 04/18/2025 Telephone [facility] - Ophthalmology [address] [place] [phone] Gallito Gillette MD [address] [place] [address] Eye Problem Social History Tobacco Use Types [...] 29 year old male currently in the [facility]. Per [facility] care team, patient presented [...] pt know of our clinic phone number ([phone]), and that pts without insurance will be charged a $100 co-pay with additional procedure-specific charges. Asked [facility] team to push imaging to [facility]/ and/or give pt copy of imaging on CD and ask pt to bring to follow-up appointment. Gallito Gillette MD Ophthalmology Resident 04/18/2025 11:39 AM RNET MARKETING STRATEGIST documented in this encounter Plan of Treatment Upcoming Encounters Date Type Department Care Team (Late st Contact Info) Description 04/20/2025 8:00 AM INTERNET MARKETING STRATEGIST Office Visit [facility] - Ophthalmology [address] [place] [phone] Connie Knapp MD [facility] [place] [phone] documented as of this encounter Visit Diagnoses Not on filedocumented in this encounter Care Teams Provider Network Analyst Relationship Specialty Start Date End Date Lindsay Abdi MD [address] [place] [address] PCP - General Family Medicine 02/08/24 documented as of this encounter
--- OUTSIDE RECORDS SUMMARY | 2025-04-18 13:16 | XMS_ITS | Encounter Summary ---
Author Organization [facility] Address [address] [place], [place] [address] [address] Care Team Providers Care Arboriculture Instructor Name Role Phone Lindsay Abdi MD Primary Care Provider [phone] Encounter Details Date Type Department Care Team ([facility] Contact Info) Description 04/22/2024 Telephone [facility]mology [address] [place] [phone] Connie Knapp MD [address] [place] [phone] Social History Tobacco Use Types Packs/Day Years [...] Upcoming Encounters Date Type Department Care Team ([facility] Contact Info) Description 04/20/2025 8:00 AM PAYROLL EXAMINER Office Visit [facility] [address] [place] [phone] Connie Knapp MD [address] [place] [phone] documented as of this encounter Visit Diagnoses Not on filedocumented in this encounter Care Teams Arboriculture Instructor Relationship Specialty Start Date End Date Lindsay Abdi MD [address] [place] [address] PCP - General Family Medicine 02/08/24 documented as of this encounter
== END 2025-04-18 11:58 | disposition home or self-care (01) ==
PROVIDERS: Emergency Provider Emergency Medicine; PCP Family Medicine
DX: E11.319 Type 2 diabetes mellitus with unspecified diabetic retinopathy without macular edema (principal); F17.290 Nicotine dependence, other tobacco product, uncomplicated; Z89.421 Acquired absence of other right toe(s); Z79.4 Long term (current) use of insulin
CPT/HCPCS: 82948; 99282